=== PATIENT | male | born 1945 | race Caucasian/White ===

== ENCOUNTER → 2017-12-27 08:20 | Outpatient (CLI) | payer MEDICARE, OTHER, SELFPAY ==
[2018-01-05 08:56] LABS: PSA,Total- Diagnostic < 0.01 ng/mL (0.0-4.0)
== END ==
PROVIDERS: Family Provider Family Medicine; PCP Family Medicine
DX: C61 Malignant neoplasm of prostate (principal)
CPT/HCPCS: 36415; 84153; G0103

== ENCOUNTER 2018-01-21 12:13 | Day surgery (SDC) | payer MEDICARE, OTHER, SELFPAY ==
[2018-01-21 12:56] VITALS: BP 96/57; PULSE 66; RESP 15; TEMP 36.3; O2SAT 100; BMI 26.6
[2018-01-21] MEDS: Cefazolin 2 GM in 0.9% Normal Saline 100 ML IV (14:35)
[2018-01-21] MEDS: Bupiv/Epi 0.5% Mpf 30 ML Vial (14:53)
--- NOTE | 2018-01-21 14:53 | RAD_ITS ---
STUDY: X-RAY - LUMBAR SPINE REASON FOR EXAM: Male, 72 years old. Spinal cord simulator insertion. TECHNIQUE: 8 intraoperative view(s) of the lumbar spine were obtained. COMPARISON: None FINDINGS: The 8 provided images demonstrate dorsal column stimulator leads with their tips posterior to the body of the right is thought to be the T9 vertebra, although this cannot be stated with certainty.. There is no fracture. There are minimal degenerative changes of the lower thoracic spine. Please refer to the operative report for further details. RAD/Lumbar Spine 2 or 3 Views IMPRESSION: Placement of a dorsal column stimulator in the OR. Electronically Signed: Erwin Ron DO at 16:03 EDT Tel [phone], Service support ,
[2018-01-21 16:21] VITALS: BP 144/81; BP 96/57; PULSE 85; RESP 16; TEMP 36.3; O2SAT 93
[2018-01-21 16:30] VITALS: BP 130/80; BP 96/57; PULSE 73; RESP 16; O2SAT 94
[2018-01-21 16:34] VITALS: BP 96/57
[2018-01-21 16:45] VITALS: BP 120/76; BP 96/57; PULSE 70; RESP 16; TEMP 36.2; O2SAT 93
[2018-01-21 17:43] VITALS: BP 106/58; BP 96/57; PULSE 57; RESP 18; TEMP 35.9; O2SAT 93
== END 2018-01-21 17:55 | disposition home or self-care (01) ==
LOC: SDC 12:14 → AC 12:16
PROVIDERS: Family Provider Family Medicine; PCP Family Medicine; Visit Provider Anesthesiology Pain Medicine
PROC: (CPT 63685; principal; 2018-01-21 13:30)
DX: M54.16 Radiculopathy, lumbar region (principal); Z98.1 Arthrodesis status; F17.200 Nicotine dependence, unspecified, uncomplicated; Z79.2 Long term (current) use of antibiotics; Z85.46 Personal history of malignant neoplasm of prostate; Z79.891 Long term (current) use of opiate analgesic
CPT/HCPCS: 63655 ×2; 63685; 95972; 72100; 76000; J7120; J2405

== ENCOUNTER → 2018-02-24 16:35 | Outpatient (CLI) | payer MEDICARE, OTHER, SELFPAY ==
[2018-02-24 17:43] LABS: Amphetamine Urine VISTA NEGATIVE (<1000 ng/mL); Barbiturate Urine VISTA NEGATIVE (< 200 ng/mL); Benzodiazepine Urine VISTA NEGATIVE (< 200 ng/mL); Cocaine Urine VISTA NEGATIVE (< 300 ng/mL); Ecstacy Urine VISTA NEGATIVE (< 500 ng/mL); Methadone Urine VISTA NEGATIVE (< 300 ng/mL); PCP Urine VISTA NEGATIVE (< 25 ng/mL); THC Urine VISTA NEGATIVE (< 50 ng/mL); Vista UDS pH Range 6
== END ==
PROVIDERS: Family Provider Family Medicine; PCP Family Medicine; Visit Provider Anesthesiology Pain Medicine
DX: F11.20 Opioid dependence, uncomplicated (principal)
CPT/HCPCS: 80307

== ENCOUNTER → 2018-06-24 11:18 | Outpatient (CLI) | payer MEDICARE, OTHER, SELFPAY ==
[2018-06-24 12:41] LABS: PSA,Total- Diagnostic < 0.01 ng/mL (0.0-4.0)
== END ==
PROVIDERS: Family Provider Family Medicine; PCP Family Medicine
DX: C61 Malignant neoplasm of prostate (principal)
CPT/HCPCS: 36415; 84153

== ENCOUNTER → 2018-11-28 | Outpatient (CLI) | payer MEDICARE, OTHER, SELFPAY ==
[2018-11-28 11:07] LABS: PSA,Total- Diagnostic < 0.01 ng/mL (0.0-4.0)
== END | disposition home or self-care (01) ==
LOC: LAB 10:10
PROVIDERS: Family Provider Family Medicine; PCP Family Medicine
DX: C61 Malignant neoplasm of prostate (principal)
CPT/HCPCS: 36415; 84153

== ENCOUNTER → 2019-05-11 | Outpatient (CLI) | payer MEDICARE, OTHER, SELFPAY ==
[2019-05-11 15:59] LABS: PSA,Total- Diagnostic 0.01 ng/mL (0.0-4.0)
== END | disposition home or self-care (01) ==
LOC: LAB 14:59
PROVIDERS: Family Provider Family Medicine; PCP Family Medicine
DX: C61 Malignant neoplasm of prostate (principal)
CPT/HCPCS: 36415; 84153

== ENCOUNTER → 2019-08-18 15:50 | Outpatient (CLI) | payer MEDICARE, OTHER, SELFPAY ==
--- NOTE | 2019-08-18 | LES_PTH ---
PATIENT: KINJAL WINN LOC: [facility] U#:[id number] AGE/SX: 79/M ROOM: RE08/18/[address]: Dr. Hardy Eng DO : 1945 BED: DIS: SPEC #: [id number] RECD: 08/18/19 16:25 STATUS: MADYSON JACKY #: [id number] SERGIO: 08/18/19 00:[address]: Hardy Eng DEPT: SURGICAL PATHOLOGY RECD BY: Marlon Mccracken Tissues: A - Skin of back, NOS B - Skin of back, NOS Procedures: Surgery Specimen Level III Surgery Specimen Level IV HEADER OPERATION: Punch biopsies PRE-OP DIAGNOSIS: Abnormal growths, rule out melanoma TISSUE SUBMITTED: A - Left low back, B - Right low back MICROSCOPIC DIAGNOSIS A. Left low back lesion, punch biopsy: Suggestive of inflamed lentigo. Negative for malignancy. See comment. B. Right low back, punch biopsy: Epidermal inclusion cyst. SJ:tru 08/22/19 COMMENT A. Multiple levels are examined. Clinical correlation and appropriate follow up are necessary. Case has been reviewed in consultation with Dr. Meade who concurs with the above diagnosis. IDC:AM MICROSCOPIC DESCRIPTION Slides are reviewed. GROSS DESCRIPTION A - Received is one container labeled with the patient's name and not further designated. The specimen consists of a discoid fragment of dee skin measuring 0.2 x 0.2 x 0.1 cm. The specimen is totally submitted in one cassette. B - Received is one container labeled with the patient's name and not further designated. The specimen consists of a discoid fragment of light dee excised skin measuring 0.5 cm in diameter and 0.1 cm in length. The specimen is submitted in its entirety in one cassette. / AM:tru 08/21/19 TC:5 CPT: 53470, 78411
== END ==
PROVIDERS: PCP Family Medicine; Visit Provider Family Medicine
DX: D49.9 Neoplasm of unspecified behavior of unspecified site (principal)
CPT/HCPCS: 88304; 88305

== ENCOUNTER → 2019-11-09 14:50 | Outpatient (CLI) | payer MEDICARE, OTHER, SELFPAY ==
[2019-11-09 15:35] LABS: PSA,Total- Diagnostic 0.01 ng/mL (0.0-4.0)
== END ==
PROVIDERS: PCP Family Medicine
DX: C61 Malignant neoplasm of prostate (principal)
CPT/HCPCS: 36415; 84153

== ENCOUNTER → 2019-12-20 | Outpatient (CLI) | payer MEDICARE, OTHER, SELFPAY ==
--- NOTE | 2019-12-20 17:00 | RAD_ITS ---
STUDY: X-RAY - LUMBAR SPINE REASON FOR EXAM: Male, 73 years old. LOW BACK PAIN, HX OF MULTIPLE SURGERIES, STIMULATOR TECHNIQUE: 3 view(s) of the lumbar spine were obtained. COMPARISON: 2017 FINDINGS: Patient has undergone previous pedicle screw fusion surgery at L4, L5, and S1. Stable appearance of a neural stimulator catheter projecting over the lower thoracic spine. Hardware is intact and free of complication. Normal lumbar lordosis. There is no substantial scoliosis. There is a normal alignment of the vertebrae. There is multilevel endplate spondylosis of the lumbar vertebrae. There is multi-level degenerative disc disease with multi-level disc space narrowing. There is no demonstrated fracture. There is atherosclerotic calcification of the abdominal aorta without a demonstrated aneurysm. RAD/Lumbar Spine 2 or 3 Views IMPRESSION: Stable degenerative and postsurgical changes in the lumbar spine, no demonstrated fracture or suspicious osseous lesion Electronically Signed: Mono Pena MD at 7:53 EDT , Service support ,
== END | disposition home or self-care (01) ==
LOC: RAD 17:04
PROVIDERS: PCP Family Medicine; Visit Provider Orthopaedic Surgery
DX: M54.5 Low back pain (principal)
CPT/HCPCS: 72100

== ENCOUNTER → 2020-01-02 17:28 | Outpatient (CLI) | payer MEDICARE, OTHER, SELFPAY ==
--- NOTE | 2020-01-02 17:30 | CT_ITS ---
STUDY: CT LUMBAR SPINE WITHOUT CONTRAST REASON FOR EXAM: Male, 74 years old. LUMBAR STENOSIS RADIATION DOSAGE (If Supplied By Facility): CTDIvol = ( 31.39 ) mGy, DLP = ( 1029.84 ) mGycm TECHNIQUE: The patient was scanned in a multi detector CT scanner. High resolution transaxial imaging was performed. Sagittal and coronal images were reconstructed. Individualized dose optimization techniques were used for this CT. COMPARISON: Radiographs 12/20/2019 FINDINGS: There is straightening of the normal lumbar lordosis. There is no substantial scoliosis. Normal alignment of the lumbar vertebral bodies. There has been discectomy and there is bony fusion between L3-L4, L4-L5, and L5-S1. Particular screws are seen bilaterally at L4, L5, and S1 similar to the radiographs, and with no evidence for prosthesis complication. Anterior fusion seen at L4-L5 and L5-S1, stable. Epidural stimulator seen behind T12. Axial images show adequate spinal canal due to at T12-L1 and L1-L2. There is loss of disc height, broad-based disc bulge, and mild central canal stenosis at L2-L3. There has been posterior decompressive laminectomy L3-L4, with grossly adequate spinal canal depth. There is poorly visualized spinal canal at L4-L5 and mild central canal stenosis with neural foraminal narrowing, worse to the right, mages. Grossly adequate spinal canal depth L5-S1 with bilaterally adequate neural foramina. Normal sacroiliac joints. Grossly normal visualized soft tissues. CT/Spine Lumbar without Contrast IMPRESSION: No gross postsurgical complication. Disc bulge and mild central canal stenosis at L2-L3 and at L4-L5. Electronically Signed: Manuel Barrientos MD at 21:46 EDT , Service support ,
== END ==
PROVIDERS: PCP Family Medicine; Referring Provider Orthopaedic Surgery; Visit Provider Orthopaedic Surgery
DX: M48.062 Spinal stenosis, lumbar region with neurogenic claudication (principal)
CPT/HCPCS: 72131

== ENCOUNTER → 2020-01-31 09:07 | Outpatient (CLI) | payer MEDICARE, OTHER, SELFPAY ==
--- NOTE | 2020-01-31 09:11 | RAD_ITS ---
STUDY: X-RAY - LUMBAR SPINE REASON FOR EXAM: Male, 74 years old. Spinal stenosis. Status post fusion. TECHNIQUE: 2 view(s) of the lumbar spine were obtained. COMPARISON: 12/20/19 FINDINGS: Again noted is fusion hardware spanning L4-S1. There is new posterior fusion hardware spanning L2/L3. The hardware is intact and alignment is satisfactory. There is no acute fracture or dislocation. There are stable degenerative changes noted. There is a spinal stimulator electrode in place. RAD/Lumbar Spine 2 or 3 Views IMPRESSION: Satisfactory postoperative changes with intact hardware and satisfactory alignment. No acute fracture or dislocation. Stable degenerative changes. Electronically Signed: John Parada, at 17:05 EDT Tel , Service support ,
== END ==
PROVIDERS: PCP Family Medicine; Referring Provider Orthopaedic Surgery; Visit Provider Orthopaedic Surgery
DX: M48.062 Spinal stenosis, lumbar region with neurogenic claudication (principal)
CPT/HCPCS: 72100

== ENCOUNTER → 2020-03-13 12:17 | Outpatient (CLI) | payer MEDICARE, OTHER, SELFPAY ==
--- NOTE | 2020-03-13 12:25 | RAD_ITS ---
STUDY: X-RAY - LUMBAR SPINE REASON FOR EXAM: Male, 74 years old. Lower back pain. surgery 7 weeks ago TECHNIQUE: 5 view(s) of the lumbar spine were obtained. COMPARISON: 01/31/2020 FINDINGS: Normal lumbar lordosis. There is trace levoscoliosis similar to previous study. Stable surgical fusion of L2 and L3, L4-S1. Disc spacers are noted at these levels. Stable vertebral bodies with minimal spurring at the endplates. Normal disc space heights. The soft tissue structures are unremarkable. A spinal stimulator is noted. RAD/Lumbar Spine 2 or 3 Views IMPRESSION: Stable degenerative and post surgical changes of the lumbar spine. Electronically Signed: Abdiaziz Hall DO at 18:58 EDT Tel [phone], Service support ,
== END ==
PROVIDERS: PCP Family Medicine; Referring Provider Orthopaedic Surgery; Visit Provider Orthopaedic Surgery
DX: M48.062 Spinal stenosis, lumbar region with neurogenic claudication (principal)
CPT/HCPCS: 72100

== ENCOUNTER 2020-04-22 10:30 | Outpatient (RCR) | payer MEDICARE, OTHER, SELFPAY ==
--- NOTE | 2020-03-20 09:19 | HP.PTEVAL_ITS ---
Patient's Visit Information KINJAL WINN is a 74 year old M referred to Physical Therapy by Dr. Hardy Blanton MD with a diagnosis of s/p decompression fusion mid December. Date of Evaluation: 03/20/20 Physical Therapist: Miguel Angel Singleton, DPT, OCS, CSCS - Visit Plan Frequency: 3x /Week Duration: 2 Months Plan: 3x/week for 6-8 weeks(3 to start) in pool per script to focus on: 1. HS and quad stretching, Nerve root stretch L sciatic. 2. core strength, LE and postural strength. 3. LB ROM. Progress to I home program as pain level improves. Monitor home walking program - Subjective S/p L?s decompression fusion 8 weeks ago in mid December after collapsed vertebrae. Symptoms were pain in back and Left leg mostly in the knee and numbness to the toes. Was getting around with pain. Surgery helped and pain in LB stillg ets up to 5/10 intermittently moreso without brace or lying in the wrong position or overdoes walking. Comfortable sitting. Leg pain is much better to 4/10 at times. Numbness in foot is much better at about 70% better. Numbness is intermittent. Sleeping is OK on meds every 4 hours. Sleeps on sides. 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 Spends day walking now and then and lying down 2- 3x/day. Basic aDLsa re getting done. helps with socks/shoes. Had LB exercises of stretching legs and LB. Walking 1/3 mile 2-3x/day. Not worse af ter walking. Uses cane at times to get around but not all day. Doesn't trust balance. - Pain LBP Pain Intensity (Out of 10): 0 Pain Intensity Range: 0, 5 L leg Pain Intensity (Out of 10): 0 Pain Intensity Range: 0, 4 - Objective Walks slightly hunched over with a cane in R UE. Can walk without AD fairly well. Transfers out of and into chair I. steps reciprocal today without rail. Supine trasnfers I. LB AROM ext max limited to about 10 degrees and painful, very little lower L45 segmental movement. Very stiff. Flexion is max limited segmentally in lumbar region. SB mod limited B. Only pain with extension. HS max tight at -35 90/90. + L slump, - SLR B. quads max tight B. reflexes 2/3 patella and achilles B. Sensation WNL gross light touch B LE. Strength LE 4/5. Core strength 3+/5. Incisions healed well, multiple older incision present, moderate scar tissue on LB palpable. No soft tissue tenderness today in lumbar region, mild in gluts and pirifromis area B - Balance Scores Functional Gait Assessment Score: 28 % Disability: 6.6700 - Goals Goal 1:: Walk 30 minutes without increased pain consistently Goal Time Frame: 6-8 Weeks Goal 2:: Patient feel pain 80% improved to 1-2/10 at worst Goal Time Frame: 6-8 Weeks Goal 3:: Sleep without interruption at night Goal Time Frame: 4-6 Weeks Goal 4:: I approp HEP to minimize future problems. Goal Time Frame: 6-8 Weeks - Rehabilitation Potential Physical Therapy Diagnosis: chronic LBP s/p fusion Rehabilitation Potential: Fair - Anticipated Interventions Patient/Client Instruction: Educate patient on: Condition, Plan of Care For the Purpose of:: To decrease pain, To increase ROM, To improve muscle performance and motor function, To increase tolerance to activity/condition/position, To improve ability of physical actions for home/community/work/leisure Therapeutic Exercise to Include: Strength training, Flexibilty training, Gait and locomotor training, Neuromotor development, In an aquatic setting, Passive ROM, Active ROM, Dynamic Lumbar Stabilization For the Purpose of:: To decrease pain, To improve muscle performance and motor function, To increase tolerance to activity/condition/position, To improve ability of physical actions for home/community/work/leisure, To improve gait and locomotor functions Thank you for the opportunity to evaluate your patient. For Medicare and Medicare HMO plans, please review the plan of care and approve it. It will need to be FAXED BACK to us at [phone] for Medicare purposes. For Medicare only, by signing this I certify the plan of care. Please let me know if there are questions or concerns regarding this plan of care. Physician Signature: Date:
--- NOTE | 2020-04-22 10:53 | HP.PTDCSUM ---
It has been my pleasure to treat KINJAL WINN referred by Dr. Hardy Blanton MD, with the diagnosis of s/p decompression fusion mid December for a total of 10 visit(s). Discharge Date: 04/22/20 Please see the following information for a summary of their discharge status. Subjective: Getting better with less severe pain. More flexible. Pain over the weekend was 2/20 at worst. Sleeping well. Avoids lifting heavier items. To doctor in two weeks. Wants to take care of the rest iwth stretching at home.Weaned down to 2 pain meds per day LBP Pain Intensity (Out of 10): 2 L leg Pain Intensity (Out of 10): 0 % Improvement: 70 Objective/Function: AROM L/S WFL adn painfree. Walks normal with good balance. HS and quads still mod tight. Overall doing well and could benefit from land strength but pt wishes to continue current home strength and stretching until see doctor. Goal 1:: Walk 30 minutes without increased pain consistently Goal Progress: 10 minutes Goal 2:: Patient feel pain 80% improved to 1-2/10 at worst Goal Progress: Progressing Goal 3:: Sleep without interruption at night Goal Progress: Goal Met Goal 4:: I approp HEP to minimize future problems. Goal Progress: stretches. abs Plan: d/c If there are questions or concerns regarding this patient's physical therapy, please feel free to call me at [phone]. Thank you for the referral of this patient. Sincerely, Miguel Angel Singleton, DPT, OCS, CSCS
== END 2020-04-22 19:00 | disposition home or self-care (01) ==
LOC: PT 10:30
PROVIDERS: PCP Family Medicine; Referring Provider Orthopaedic Surgery; Visit Provider Orthopaedic Surgery
DX: Z47.89 Encounter for other orthopedic aftercare (principal)
CPT/HCPCS: 97113; 97162; 97164

== ENCOUNTER → 2020-05-06 09:20 | Outpatient (CLI) | payer MEDICARE, OTHER, SELFPAY ==
--- NOTE | 2020-05-06 09:24 | RAD_ITS ---
HISTORY: POST OP X 2 MONTHS ADDITIONAL HISTORY: None provided. EXAMINATION/TECHNIQUE: XR Spine Lumbar 2 or 3 Views Number of images including paperwork: 2 COMPARISON: 03/13/2020 FINDINGS: VERTEBRAE: No acute fracture. VERTEBRAL ALIGNMENT: No traumatic subluxation. DISKS AND JOINTS: Postoperative changes of spinal fusion of L2-3 and L4-S1 noted. Disc spacer is present at L3-for, as well. No evidence of hardware complication. SOFT TISSUES: Vascular calcification. Spinal stimulator device with right-sided generator partially visible. RAD/Lumbar Spine 2 or 3 Views IMPRESSION: Lumbar postoperative changes appear grossly similar. at 0202 Reported and signed by: Dalila Conteh MD Electronically Signed: Dalila Conteh MD at 2:02 EST Tel , Service support ,
== END ==
PROVIDERS: PCP Family Medicine; Referring Provider Orthopaedic Surgery; Visit Provider Orthopaedic Surgery
DX: M48.062 Spinal stenosis, lumbar region with neurogenic claudication (principal)
CPT/HCPCS: 72100

== ENCOUNTER → 2020-05-22 08:16 | Outpatient (CLI) | payer MEDICARE, OTHER, SELFPAY ==
[2020-05-22 09:36] LABS: PSA,Total - Annual Screen 0.01 ng/mL (0.00-4.00)
== END ==
PROVIDERS: PCP Family Medicine
DX: C61 Malignant neoplasm of prostate (principal); Z12.5 Encounter for screening for malignant neoplasm of prostate
CPT/HCPCS: 36415; 84153; G0103

== ENCOUNTER → 2020-06-03 09:18 | Outpatient (CLI) | payer MEDICARE, OTHER, SELFPAY ==
[2020-06-03 11:14] LABS: Amphetamine Urine VISTA NEGATIVE (<1000 ng/mL); Barbiturate Urine VISTA NEGATIVE (< 200 ng/mL); Benzodiazepine Urine VISTA NEGATIVE (< 200 ng/mL); Cocaine Urine VISTA NEGATIVE (< 300 ng/mL); Ecstacy Urine VISTA NEGATIVE (< 500 ng/mL); Methadone Urine VISTA NEGATIVE (< 300 ng/mL); PCP Urine VISTA NEGATIVE (< 25 ng/mL); THC Urine VISTA NEGATIVE (< 50 ng/mL); Vista UDS pH Range 5
== END ==
PROVIDERS: PCP Family Medicine; Referring Provider Anesthesiology Pain Medicine; Visit Provider Anesthesiology Pain Medicine
DX: F11.20 Opioid dependence, uncomplicated (principal)
CPT/HCPCS: 80307

== ENCOUNTER → 2020-07-29 09:13 | Outpatient (CLI) | payer MEDICARE, OTHER, SELFPAY ==
--- NOTE | 2020-07-29 09:18 | RAD_ITS ---
STUDY: X-RAY - LUMBAR SPINE REASON FOR EXAM: Male, 74 years old. Spinal stenosis -- multiple surgeries -- LBP TECHNIQUE: 2 view(s) of the lumbar spine were obtained. COMPARISON: Comparison is made with prior study dated 05/06/2020. FINDINGS: Normal lumbar lordosis. There is no substantial scoliosis. There is a normal alignment of the vertebrae. The patient is status post laminectomy and interpedicular screw fixation at the L2-L3 as well as at the L4-L5 and L5-S1 levels. Prosthetic discs are also seen. There is also evidence of anterior lift procedure. Electrodes from a pain stimulator device are also seen.. The soft tissue structures are unremarkable. RAD/Lumbar Spine 2 or 3 Views IMPRESSION: Stable examination. Electronically Signed: Jadon Pacheco MD at 10:58 EST , Service support ,
== END ==
PROVIDERS: PCP Family Medicine; Referring Provider Orthopaedic Surgery; Visit Provider Orthopaedic Surgery
DX: M48.062 Spinal stenosis, lumbar region with neurogenic claudication (principal)
CPT/HCPCS: 72100

== ENCOUNTER → 2020-11-18 08:16 | Outpatient (CLI) | payer MEDICARE, OTHER, SELFPAY ==
[2020-11-17 10:33] VITALS: BMI 26.6
[2020-11-18 09:43] LABS: PSA,Total- Diagnostic 0.02 ng/mL (0.0-4.0)
[2020-11-18 10:54] LABS: Amphetamine Urine VISTA NEGATIVE (<1000 ng/mL); Barbiturate Urine VISTA NEGATIVE (< 200 ng/mL); Benzodiazepine Urine VISTA NEGATIVE (< 200 ng/mL); Cocaine Urine VISTA NEGATIVE (< 300 ng/mL); Ecstacy Urine VISTA NEGATIVE (< 500 ng/mL); Methadone Urine VISTA NEGATIVE (< 300 ng/mL); PCP Urine VISTA NEGATIVE (< 25 ng/mL); THC Urine VISTA NEGATIVE (< 50 ng/mL); Vista UDS pH Range 5
== END ==
PROVIDERS: Anesthesiology Pain Medicine; PCP Family Medicine
DX: C61 Malignant neoplasm of prostate (principal); F11.20 Opioid dependence, uncomplicated
CPT/HCPCS: 36415; 80307; 84153

== ENCOUNTER → 2021-02-05 15:07 | Outpatient (CLI) | payer MEDICARE, OTHER, SELFPAY ==
[2020-11-17 10:33] VITALS: BMI 26.6
--- NOTE | 2021-02-05 15:20 | RAD_ITS ---
INDICATION: SPINAL STENOSIS EXAMINATION/TECHNIQUE: X-RAY - XR Spine Lumbar 2 or 3 Views COMPARISON: 07/29/2020. FINDINGS: Normal lumbar lordosis. There is no substantial scoliosis. There is a normal alignment of the vertebrae. Status post laminectomy and interpedicular screw fixation at the L2-L3, L4-L5 and L5-S1 levels. Prosthetic discs are seen. Electrodes from a pain stimulator device are also seen. The soft tissue structures are unremarkable. RAD/Lumbar Spine 2 or 3 Views IMPRESSION: Stable exam. Electronically Signed: Roque Oden MD at 17:51 EDT Tel , Service support ,
== END ==
PROVIDERS: PCP Family Medicine; Referring Provider Orthopaedic Surgery; Visit Provider Orthopaedic Surgery
DX: M48.061 Spinal stenosis, lumbar region without neurogenic claudication (principal)
CPT/HCPCS: 72100

== ENCOUNTER 2021-02-18 13:07 | Emergency (ER) | payer MEDICARE, OTHER, SELFPAY ==
[2021-02-18 13:08] VITALS: BP 120/76; PULSE 93; RESP 16; TEMP 37; O2SAT 94; BMI 27.2
--- NOTE | 2021-02-18 13:27 | RAD_ITS ---
STUDY: X-RAY CHEST REASON FOR EXAM: Male, 75 years old. Near syncope TECHNIQUE: Single AP portable view of the chest. COMPARISON: Comparison is made with prior examination 04/20/2017. FINDINGS: EKG electrodes are seen. There is hyperinflation of the lungs consistent with chronic obstructive lung disease (COPD). Stable mild increased linear markings at the left lung base suggestive of scarring. There is no demonstrated pleural abnormality. Normal size heart. Normal mediastinum and [place]. Normal visualized pulmonary arteries. There is atherosclerotic calcification of the aortic arch with tortuosity. There are diffuse degenerative changes of the visualized thoracic spine. Electrodes from a TENS unit are seen. The patient is status post bilateral shoulder replacement. There is no demonstrated abnormality of the visualized soft tissue structures of the upper abdomen. RAD/Chest 1 View (Portable) IMPRESSION: Hyperinflation. Stable examination. Electronically Signed: Jadon Pacheco MD at 14:18 EDT , Service support ,
--- NOTE | 2021-02-18 13:27 | EKG12_ITS ---
Test Reason : NEAR SYNCOPE Blood Pressure : / mmHG Vent. Rate : 086 BPM Atrial Rate : 086 BPM P-R Int : 186 ms QRS Dur : 080 ms QT Int : 362 ms P-R-T Axes : 074 -46 064 degrees QTc Int : 433 ms Normal sinus rhythm Left anterior fascicular block Inferior infarct , age undetermined Anteroseptal OR, age undetermined, cannot be excluded Abnormal ECG Confirmed by JOHN CARDOSO, DANIELLE ([id number]), slot editor LYNDA PARRA ([id number]) on 02/20/2021 9:58:30 AM Referred By: WILMER Confirmed By:DANIELLE LOPEZ MD
--- NOTE | 2021-02-18 13:28 | EX.ED.DYSGE1 ---
HPI History of Present Illness Chief Complaint: Hypotension Informant: patient, spouse/S.O. and EMS Narrative Narrative: 75-year-old male presents following a near syncopal episode. Patient states that he was working outside today when he started to have hot flashes and was quite diaphoretic. Started to feel like he might pass out. He was doing quite heavy lifting. Patient states that he went inside his house and his noted that he did not appear to be feeling good she states that his heart rate was in the 40s and seemed to be irregular and the blood pressure was reading low. EMS was called and prehospital EKG reviewed which demonstrates a sinus rhythm in the 90s. Patient states he has chronic back pain is currently prescribed [place] for which he has been trying to wean himself off for the past 5 days. [facility] Medical History Chronic low back pain History of prostate cancer Pleural effusion Rib pain on left side Home Medications hydrocodone-acetaminophen 1 tab PO DAILY 01/14/18 [History Last Taken Unknown] omega-3 fatty acids-fish oil [Fish Oil 1,000 mg Capsule] 1 ea PO DAILY 01/14/18 [History Last Taken Unknown] red yeast rice 600 mg tablet 600 mg PO DAILY 11/06/20 [History Last Taken Unknown] zinc 50 mg tablet 50 mg PO DAILY 11/06/20 [History Last Taken Unknown] albuterol sulfate 90 mcg/actuation aerosol inhaler 2 puff INHALATION Q6H PRN #6.7 g 11/17/20 [Rx Last Taken Unknown] azithromycin 250 mg tablet See Rx Instructions PO .COMPLEX #6 tab 11/17/20 [Rx Last Taken Unknown] Allergy/AdvReac Type Severity Reaction Status Date / Time No Known Allergies Allergy Verified 02/18/21 13:11 Family History Father Cancer Brother Cancer Sister Cancer Surgical History History of left knee replacement Hx of lumbosacral spine surgery Social History adopted: No household members: spouse housing: house number of children: 0 current occupational status: employed 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 occupational exposures/hazards: No Smoking Status: Current every day smoker tobacco type: cigarettes second hand exposure: Yes alcohol intake: never substance use type: does not use what type of physical activity do you participate in: bicycling frequency: 3-4 times per week duration: 15-30 minutes/day ROS ROS ED Constitutional Constitutional ED: Denies chills or weight loss Eyes Eyes: Denies change in vision or diplopia ENT ENT ED: Denies ear pain, rhinorrhea or sore throat Cardiovascular Cardiovascular: Reports palpitations and other Details: Near syncope ; Denies chest pain, orthopnea or racing heartbeat Respiratory/Chest Respiratory/Chest: Denies cough, dyspnea or orthopnea Gastrointestinal Gastrointestinal: Denies abdominal pain, diarrhea, nausea or vomiting Genitourinary Genitourinary ED: Denies dysuria, hematuria or urinary frequency Musculoskeletal Musculoskeletal: Denies arthralgias or myalgias Integumentary Denies abscess or rash Neurologic Neurologic: Denies headache(s) or weakness Psychiatric Psychiatric: Denies anxiety, depression, suicidal ideation or suicidal thoughts Endocrine Endocrinology: Denies polydipsia, polyphagia or polyuria Allergic/Immunologic Allergic/Immunologic ED: Denies mouth swelling, tongue swelling or urticaria EXAM Physical Exam Const Vital Signs: 02/18/21 13:08 02/18/21 13:12 02/18/21 15:13 Temperature 98.6 F Temperature Source Oral Pulse Rate 93 Pulse Rate [Sitting] 92 Pulse Rate [Standing] 96 Respiratory Rate 16 Respiratory Pattern Normal Blood Pressure 120/76 Blood Pressure [Sitting] 104/74 Blood Pressure [Standing] 100/70 Blood Pressure Mean 90 Blood Pressure Mean [Sitting] 84 Blood Pressure Mean [Standing] 80 Pulse Ox 94 Oxygen Delivery Method Room Air Positive well nourished and well developed General Appearance ED: well developed HEENT Reports normocephalic, head/scalp atraumatic and moist mucous membranes Eyes PERRL and EOMs intact bilaterally Neck no lymphadenopathy, supple and no JVD Resp normal respiratory effort and clear to auscultation bilaterally Cardio regular rate, regular rhythm and no murmurs GI normal to inspection, nondistended, normoactive bowel sounds and non-tender Palpation: soft Back/Spine no CVA tenderness and normal ROM Extremity normal to inspection General Extremety ED: Negative for edema General Extremity: Negative for edema Neuro oriented x3 and CN's II-XII intact bilaterally Sensorium / Orientation: alert Motor Exam: strength 5/5 throughout Psych mental status grossly normal Mood & Affect: Negative for depressed or tearful Skin no rashes or lesions noted and no wounds MDM MDM MDM Narrative Medical decision making narrative: Patient received a liter of IV fluids. Basic blood work was essentially negative. My interpretation of the chest x-ray is no acute process. Patient does not have any dysrhythmias noted on the monitor. He is not orthostatic. He will be discharged home. Lab Data Attestation: I reviewed the patient's lab results. Labs: Laboratory Results - last 24 hr 02/18/21 02/18/21 13:28 13:28 WBC 8.8 RBC 4.06 L Hgb 12.8 L Hct 38.4 L MCV 94.6 H MCH 31.5 MCHC 33.3 RDW Std Deviation 47.3 H RDW Coeff of [place] 13.6 Plt Count 343 MPV 8.5 Immature Gran % (Auto) 0.300 Neut % (Auto) 70.9 H Lymph % (Auto) 18.6 L [place] % (Auto) 9.1 Eos % (Auto) 0.8 Baso % (Auto) 0.3 Absolute Neuts (auto) 6.3 Absolute Lymphs (auto) 1.64 Nucleated RBC % 0 Sodium 140 Potassium 4.3 Chloride 108 H Carbon Dioxide 27.0 Anion Gap 5 BUN 23 H Creatinine 1.30 Estim Creat Clear Calc 51.49 Est GFR (MDRD) Af Amer 69 Est GFR (MDRD) Non-Af 57 L BUN/Creatinine Ratio 17.7 Glucose 104 Calcium 10.1 Magnesium 2.2 Troponin I High Sens 28 Radiography Diagnostic Testing: Radiology Impression Chest X-Ray 02/18/21 13:27 IMPRESSION: Hyperinflation. Stable examination. Electronically Signed: Jadon Pacheco MD at 14:18 EDT , Service support , EKG Initial EKG: Attestation: I personally reviewed and interpreted this EKG as follows: Comments: Normal sinus rhythm ventricular rate of 86 bpm. Left anterior fascicular block noted Discharge Plan Triage Chief Complaint: Hypotension ED Provider: Donald Meneses Dx/Rx/DC Orders Clinical Impression: Near syncope, Acute dehydration Instructions: ED Near-Fainting, Uncertain Cause Prescriptions: No Action red yeast rice 600 mg tablet 600 mg PO DAILY RF: 0 zinc 50 mg tablet 50 mg PO DAILY RF: 0 albuterol sulfate 90 mcg/actuation HFA aerosol inhaler 2 puff inhalation Q6H PRN (Reason: shortness of breath or wheezing) Qty: 6.7 RF: 0 azithromycin [Zithromax Z-Eliud] 250 mg tablet See Rx Instructions PO .COMPLEX Qty: 6 RF: 0 omega-3 fatty acids-fish oil [Fish Oil] 1 EACH capsule 1 ea PO DAILY RF: 0 hydrocodone-acetaminophen 1 TABLET tablet 1 tab PO DAILY RF: 0 Primary Care Provider: Hardy Eng Referrals: Hardy Eng DO [Primary Care Provider] - 1 Week Disposition Disposition: Home, Self Care
[2021-02-18 13:34] LABS: Absolute Lymphocyte Count 1.64 X10^3/uL (0.83-4.51); Absolute Neutrophil Count 6.3 X10^3/uL (2.0-7.7); Basophil# 0.03 X10^3/uL; Basophil% 0.3 % (0-1); Eosinophil# 0.07 X10^3/uL; Eosinophils% 0.8 % (0-5); Hematocrit 38.4 % (40-54); Hemoglobin 12.8 g/dL (13.0-16.5); Lymphocyte # 1.64 X10^3/ul (0.83-4.51); Lymphocyte % 18.6 % (19-41); Mean Corp Hgb Conc 33.3 g/dL (32-36); Mean Corpuscular Hgb 31.5 pg (27.0-32.0); Mean Corpuscular Volume 94.6 fL (80-94); Mean Platelet Vol. 8.5 fl (6.2-12.0); Monocyte% 9.1 % (0-10); NRBC Flagged by Analyzer 0 % (0-5); Neutrophil # 6.26 X10^3/uL (2.7-7.7); Neutrophil % 70.9 % (47-70); Platelet Count 343 K/mm3 (150-450); RBC Distribution Width CV 13.6 % (11.6-14.6); RBC Distribution Width SD 47.3 fl (35.1-43.9); Red Blood Count 4.06 M/mm3 (4.6-6.2); White Blood Count 8.8 K/mm3 (4.4-11.0)
[2021-02-18 13:54] LABS: Anion Gap 5 (5-15); BUN 23 mg/dL (7-18); BUN/Creat Ratio 17.7 RATIO (10-20); Calcium,Total 10.1 mg/dL (8.5-10.1); Chloride 108 mmol/L (98-107); EST Glomerular Filtration Rate 57 mL/min (>60); Est Glom Filt Rate - Afr Amer 69 mL/min (>60); Estimated Creatinine Clearance 51.49 ml/min; Glucose 104 mg/dL (74-106); Magnesium 2.2 mg/dL (1.6-2.6); Potassium 4.3 mmol/L (3.5-5.1); Sodium Level 140 mmol/L (136-145); Troponin-I HS 28 pg/mL (3.0-78.0)
[2021-02-18 15:13] VITALS: BP 100/70; BP 104/74; PULSE 92; PULSE 96
[2021-02-18 15:39] VITALS: BP 106/60; PULSE 71; RESP 16; O2SAT 98
--- NOTE | 2021-02-18 15:40 | ED.RN ---
THIS NURSE REVIEWED D/C INSTRUCTIONS WITH PT AND . BOTH VERBALIZED UNDERSTANDING OF INSTRUCTIONS. IV D/C. IV CATHETER INTACT. PT TOLERATED WELL. PT DENIES FURTHER NEEDS OR QUESTIONS AT THIS TIME. PT AMBULATES FROM ROOM ON OWN WITHOUT ASSISTANCE FROM STAFF
== END 2021-02-18 15:42 | disposition home or self-care (01) ==
PROVIDERS: Emergency Provider Emergency Medicine; PCP Family Medicine
DX: R55 Syncope and collapse (principal); E86.0 Dehydration; F17.210 Nicotine dependence, cigarettes, uncomplicated; Z85.46 Personal history of malignant neoplasm of prostate
CPT/HCPCS: 71045; 80048; 83735; 84484; 85025; 93005; 99285; A4216

== ENCOUNTER 2021-03-28 06:40 | Emergency (ER) | payer MEDICARE, OTHER, SELFPAY ==
[2021-03-28 06:44] VITALS: BP 132/81; PULSE 74; RESP 18; TEMP 36.3; O2SAT 92; BMI 27.3
--- NOTE | 2021-03-28 06:50 | RAD_ITS ---
STUDY: X-RAY CHEST REASON FOR EXAM: Male, 75 years old. Chest pain TECHNIQUE: Portable, upright, AP chest radiograph COMPARISON: 02/18/2021 FINDINGS: Bibasilar atelectasis. No focal consolidation. There is no demonstrated pleural abnormality. Normal size heart. Normal mediastinum and [place]. Normal visualized pulmonary arteries. Normal visualized aortic arch and descending thoracic aorta. There are diffuse degenerative changes of the visualized thoracic spine. Spinal stimulator leads noted. Bilateral shoulder arthroplasties. RAD/Chest 1 View (Portable) IMPRESSION: Bibasilar atelectasis. Electronically Signed: Kartik Stacy MD at 7:34 EDT Tel , Service support ,
--- NOTE | 2021-03-28 06:50 | EKG12_ITS ---
Test Reason : CHEST PAIN Blood Pressure : / mmHG Vent. Rate : 075 BPM Atrial Rate : 075 BPM P-R Int : 166 ms QRS Dur : 078 ms QT Int : 404 ms P-R-T Axes : 070 -54 069 degrees QTc Int : 451 ms Normal sinus rhythm Low voltage QRS Left anterior fascicular block Inferior infarct , age undetermined Abnormal ECG Confirmed by RICARDO CARDOSO, ALYSA ([id number]), scientific editor LYNDA PARRA ([id number]) on 03/31/2021 8:06:41 AM Referred By: JENNIFER Confirmed By:ALYSA SILVA MD
[2021-03-28 06:52] VITALS: O2SAT 93
[2021-03-28 06:56] LABS: Absolute Lymphocyte Count 1.18 X10^3/uL (0.83-4.51); Absolute Neutrophil Count 3.7 X10^3/uL (2.0-7.7); Basophil# 0.02 X10^3/uL; Basophil% 0.4 % (0-1); Eosinophil# 0.01 X10^3/uL; Eosinophils% 0.2 % (0-5); Hematocrit 38.2 % (40-54); Hemoglobin 12.9 g/dL (13.0-16.5); Lymphocyte # 1.18 X10^3/ul (0.83-4.51); Lymphocyte % 20.8 % (19-41); Mean Corp Hgb Conc 33.8 g/dL (32-36); Mean Corpuscular Hgb 31.5 pg (27.0-32.0); Mean Corpuscular Volume 93.2 fL (80-94); Mean Platelet Vol. 8.8 fl (6.2-12.0); Monocyte# 0.69 X10^3/uL; Monocyte% 12.2 % (0-10); NRBC Flagged by Analyzer 0 % (0-5); Neutrophil # 3.72 X10^3/uL (2.7-7.7); Neutrophil % 65.7 % (47-70); Platelet Count 275 K/mm3 (150-450); RBC Distribution Width CV 13.2 % (11.6-14.6); RBC Distribution Width SD 45.4 fl (35.1-43.9); White Blood Count 5.7 K/mm3 (4.4-11.0)
[2021-03-28 07:14] LABS: Anion Gap 7 (5-15); BUN 12 mg/dL (7-18); BUN/Creat Ratio 13.9 RATIO (10-20); Calcium,Total 8.9 mg/dL (8.5-10.1); Chloride 102 mmol/L (98-107); Creatinine, Serum 0.86 mg/dL (0.70-1.30); EST Glomerular Filtration Rate 92 mL/min (>60); Est Glom Filt Rate - Afr Amer 111 mL/min (>60); Estimated Creatinine Clearance 77.83 ml/min; Glucose 105 mg/dL (74-106); Potassium 4.1 mmol/L (3.5-5.1); Sodium Level 137 mmol/L (136-145); Troponin-I HS 8 pg/mL (3.0-78.0)
--- NOTE | 2021-03-28 07:19 | ED.VIS.CHEST ---
HPI History of Present Illness Chief Complaint: Chest Pain Narrative Narrative: 75-year-old male presenting with left-sided rib pain. He states it is sharp in nature. This started last night. He states that the sharp pain is worse with laying supine. Patient also states that he has had body aches, mild cough, fever 101 Fahrenheit on Wednesday. Patient states that he may have been exposed to COVID-19 at [employer] on Wednesday. One of the children that was sitting next to him tested positive. Patient has not had COVID-19 as of yet. He had his first Pfizer vaccine 3 weeks ago. Patient does admit to some diarrhea which has resolved. He denies nausea or vomiting. He states he is able to eat and drink. Denies urinary symptoms. [facility] Medical History Chronic low back pain History of prostate cancer Pleural effusion Rib pain on left side Home Medications hydrocodone-acetaminophen 1 tab PO DAILY 01/14/18 [History Last Taken Unknown] omega-3 fatty acids-fish oil [Fish Oil 1,000 mg Capsule] 1 ea PO DAILY 01/14/18 [History Last Taken Unknown] red yeast rice 600 mg tablet 600 mg PO DAILY 11/06/20 [History Last Taken Unknown] zinc 50 mg tablet 50 mg PO DAILY 11/06/20 [History Last Taken Unknown] albuterol sulfate 90 mcg/actuation aerosol inhaler 2 puff INHALATION Q6H PRN #6.7 g 11/17/20 [Rx Last Taken Unknown] oxycodone 03/28/21 [History Last Taken Unknown] tamsulosin 0.4 mg PO DAILY 03/28/21 [History Last Taken Unknown] Allergy/AdvReac Type Severity Reaction Status Date / Time No Known Allergies Allergy Verified 03/28/21 06:41 Family History Father Cancer Brother Cancer Sister Cancer Surgical History History of left knee replacement Hx of lumbosacral spine surgery S/P insertion of spinal cord stimulator Social History adopted: No household members: spouse housing: house number of children: 0 current occupational status: employed 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 occupational exposures/hazards: No Smoking Status: Current every day smoker tobacco type: cigarettes second hand exposure: Yes alcohol intake: never substance use type: does not use what type of physical activity do you participate in: bicycling frequency: 3-4 times per week duration: 15-30 minutes/day ROS ROS ED Constitutional Constitutional ED: Reports fever(s); Denies chills or sweats Eyes Eyes: Denies blurry vision or change in vision ENT ENT ED: Denies rhinorrhea or sore throat Cardiovascular Cardiovascular: Reports chest pain Respiratory/Chest Respiratory/Chest: Reports cough; Denies dyspnea or sputum Gastrointestinal Gastrointestinal: Reports diarrhea; Denies abdominal pain, nausea or vomiting Genitourinary Genitourinary ED: Denies dysuria or hematuria Musculoskeletal Musculoskeletal: Reports myalgias; Denies arthralgias or neck pain Integumentary Denies abscess or rash Neurologic Neurologic: Denies headache(s) EXAM Physical Exam Const Vital Signs: 03/28/21 06:44 03/28/21 06:49 03/28/21 06:52 Temperature 97.3 F L Temperature Source Temporal Pulse Rate 74 Respiratory Rate 18 Respiratory Effort Normal Respiratory Pattern Normal Blood Pressure 132/81 H Blood Pressure Mean 98 Pulse Ox 92 93 Oxygen Delivery Method Room Air Room Air Positive well nourished General Appearance ED: NAD; Negative for pallor HEENT Reports moist mucous membranes normocephalic and atraumatic Eyes PERRL and EOMs intact bilaterally Resp normal respiratory effort Auscultation: diminished lung sounds left Cardio regular rate and regular rhythm Neuro oriented x3 Sensorium / Orientation: awake and alert Psych mental status grossly normal Skin no rashes or lesions noted General Skin Exam: Negative for jaundice or pallor Heart Score History: Slightly/Non-Suspicious ECG: Normal Age: >/= 65 years Risk Factors: 1 or 2 Risk Factors Troponin: </= Normal Limit Score: 3 MDM MDM MDM Narrative Medical decision making narrative: 75-year-old male presenting for concern for Covid as well as some chest pain in the left ribs. Patient states that the Covid symptoms have been ongoing since Wednesday however the chest pain started last night. He describes it is intermittent. His EKG performed on arrival and interpreted by myself shows a normal sinus rhythm with a ventricular rate of 75 bpm without sign of ischemic change. Chest x-ray on my interpretation shows bibasilar atelectasis without other acute findings. Radiologist does agree. CBC shows a white blood cell count of 5.7, hemoglobin 12.9, hematocrit 38.2, platelets 275. Renal function and electrolytes are normal. Initial troponin is 8. 2-hour troponin is 9. No significant change. D-dimer age-adjusted is negative at 74. Patient tested positive for COVID-19 today. Patient not requiring any oxygen otherwise his vital signs are stable. Patient otherwise stable and will be referred for monoclonal antibodies. Patient discharged home in stable condition. He will monitor his home pulse ox. 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 Impression: 1. Chest pain noncardiac 2. COVID-19 pneumonitis Lab Data Labs: Laboratory Results - last 24 hr 03/28/21 03/28/21 03/28/21 06:47 06:47 07:35 WBC 5.7 RBC 4.10 L Hgb 12.9 L Hct 38.2 L MCV 93.2 MCH 31.5 MCHC 33.8 RDW Std Deviation 45.4 H RDW Coeff of [place] 13.2 Plt Count 275 MPV 8.8 Immature Gran % (Auto) 0.700 Neut % (Auto) 65.7 Lymph % (Auto) 20.8 [place] % (Auto) 12.2 H Eos % (Auto) 0.2 Baso % (Auto) 0.4 Absolute Neuts (auto) 3.7 Absolute Lymphs (auto) 1.18 Nucleated RBC % 0 D-Dimer Quant (PE/DVT) 0.75 H* Sodium 137 Potassium 4.1 Chloride 102 Carbon Dioxide 28.0 Anion Gap 7 BUN 12 Creatinine 0.86 Estim Creat Clear Calc 77.83 Est GFR (MDRD) Af Amer 111 Est GFR (MDRD) Non-Af 92 BUN/Creatinine Ratio 13.9 Glucose 105 Calcium 8.9 Troponin I High Sens 8 03/28/21 08:35 WBC RBC Hgb Hct MCV MCH MCHC RDW Std Deviation RDW Coeff of [place] Plt Count MPV Immature Gran % (Auto) Neut % (Auto) Lymph % (Auto) [place] % (Auto) Eos % (Auto) Baso % (Auto) Absolute Neuts (auto) Absolute Lymphs (auto) Nucleated RBC % D-Dimer Quant (PE/DVT) Sodium Potassium Chloride Carbon Dioxide Anion Gap BUN Creatinine Estim Creat Clear Calc Est GFR (MDRD) Af Amer Est GFR (MDRD) Non-Af BUN/Creatinine Ratio Glucose Calcium Troponin I High Sens 9 Radiography Diagnostic Testing: Radiology Impression Chest X-Ray 03/28/21 06:50 IMPRESSION: Bibasilar atelectasis. Electronically Signed: Kartik Stacy MD at 7:34 EDT Tel , Service support , Discharge Plan Triage Chief Complaint: Chest Pain ED Provider: Randy Lopez Dx/Rx/DC Orders Instructions: Coronavirus Disease 2019 (COVID-19): Caring for Yourself or Others, ED Chest Pain, Noncardiac Prescriptions: No Action red yeast rice 600 mg tablet 600 mg PO DAILY RF: 0 zinc 50 mg tablet 50 mg PO DAILY RF: 0 albuterol sulfate 90 mcg/actuation HFA aerosol inhaler 2 puff inhalation Q6H PRN (Reason: shortness of breath or wheezing) Qty: 6.7 RF: 0 Fish Oil 1 EACH capsule 1 ea PO DAILY RF: 0 hydrocodone-acetaminophen 1 TABLET tablet 1 tab PO DAILY RF: 0 tamsulosin 0.4 mg capsule 0.4 mg PO DAILY RF: 0 oxycodone 5 mg Tablet RF: 0 Other Ambulatory Orders: COVID Outpatient Monoclonal Antibody Referral (Routine) Timeframe: 1 Day Facility: [facility] - Location: [facility] Ordered By: Dr. Randy Lopez Primary Care Provider: Hardy Eng Referrals: Hardy Eng DO [Primary Care Provider] - Disposition Disposition: Home, Self Care
[2021-03-28 07:40] VITALS: O2SAT 93
[2021-03-28 08:12] LABS: D-Dimer Quantitative (DVT/PE) 0.75 FEU/ug/m (0.27-0.49)
[2021-03-28 09:05] LABS: Troponin-I HS 9 pg/mL (3.0-78.0)
[2021-03-28 09:39] VITALS: BP 112/84; PULSE 86; RESP 16; O2SAT 93
== END 2021-03-28 09:39 | disposition home or self-care (01) ==
PROVIDERS: Emergency Provider Student in an Organized Health Care Education/Training Program; PCP Family Medicine
DX: U07.1 COVID-19 (principal); J12.82 Pneumonia due to coronavirus disease 2019; R07.89 Other chest pain; F17.210 Nicotine dependence, cigarettes, uncomplicated; Z85.46 Personal history of malignant neoplasm of prostate; Z79.899 Other long term (current) drug therapy
CPT/HCPCS: 36415; 71045; 80048; 84484; 85025; 85379; 87426; 93005; 99284; A4216

== ENCOUNTER 2021-03-28 17:32 | Outpatient (CLI) | payer MEDICARE, OTHER, SELFPAY ==
[2021-03-28 17:57] VITALS: BP 93/74; PULSE 77; RESP 16; TEMP 36.8; O2SAT 97; BMI 27.1
[2021-03-28] MEDS: 0.9% Saline Lock 10 ML Syringe IV (18:04)
[2021-03-28 18:35] VITALS: BP 107/67; PULSE 76; RESP 16; TEMP 36.7; O2SAT 99
[2021-03-28 20:27] VITALS: BP 121/78; PULSE 68; RESP 16; TEMP 36.8; O2SAT 98
== END 2021-03-28 19:35 | disposition home or self-care (01) ==
LOC: MS3OUT 17:32 → MS3 17:33
PROVIDERS: PCP Family Medicine; Visit Provider Nurse Practitioner Adult Health
DX: Z23 Encounter for immunization (principal); U07.1 COVID-19; J12.82 Pneumonia due to coronavirus disease 2019; R07.89 Other chest pain; F17.210 Nicotine dependence, cigarettes, uncomplicated; Z79.899 Other long term (current) drug therapy; Z85.46 Personal history of malignant neoplasm of prostate
CPT/HCPCS: 36415; 71045; 80048; 84484; 85025; 85379; 87426; 93005; 99284; J7050; M0243; A4216; Q0244

== ENCOUNTER → 2021-10-01 08:20 | Outpatient (CLI) | payer MEDICARE, OTHER, SELFPAY ==
[2021-10-01 09:50] LABS: PSA,Total- Diagnostic 0.02 ng/mL (0.0-4.0)
== END ==
PROVIDERS: PCP Family Medicine
DX: C61 Malignant neoplasm of prostate (principal)
CPT/HCPCS: 36415; 84153

== ENCOUNTER → 2022-02-18 | Outpatient (CLI) | payer MEDICARE, OTHER, SELFPAY ==
[2022-02-18 13:05] LABS: Amphetamine Urine VISTA NEGATIVE (<1000 ng/mL); Barbiturate Urine VISTA NEGATIVE (< 200 ng/mL); Benzodiazepine Urine VISTA NEGATIVE (< 200 ng/mL); Cocaine Urine VISTA NEGATIVE (< 300 ng/mL); Ecstacy Urine VISTA NEGATIVE (< 500 ng/mL); Methadone Urine VISTA NEGATIVE (< 300 ng/mL); PCP Urine VISTA NEGATIVE (< 25 ng/mL); THC Urine VISTA NEGATIVE (< 50 ng/mL); Vista UDS pH Range 6
== END | disposition home or self-care (01) ==
LOC: LAB 11:31
PROVIDERS: PCP Family Medicine; Referring Provider Anesthesiology Pain Medicine; Visit Provider Anesthesiology Pain Medicine
DX: F11.20 Opioid dependence, uncomplicated (principal)
CPT/HCPCS: 80307

== ENCOUNTER → 2022-04-03 | Outpatient (CLI) | payer MEDICARE, OTHER, SELFPAY ==
[2022-04-03 11:27] LABS: PSA,Total- Diagnostic 0.04 ng/mL (0.0-4.0)
== END | disposition home or self-care (01) ==
PROVIDERS: PCP Family Medicine
DX: C61 Malignant neoplasm of prostate (principal)
CPT/HCPCS: 36415; 84153

== ENCOUNTER → 2022-04-23 | Outpatient (CLI) | payer MEDICARE, OTHER, SELFPAY ==
[2022-04-23 15:21] LABS: Absolute Lymphocyte Count 1.74 X10^3/uL (0.83-4.51); Absolute Neutrophil Count 5.4 X10^3/uL (2.0-7.7); Basophil# 0.02 X10^3/uL; Basophil% 0.3 % (0-1); Eosinophil# 0.09 X10^3/uL; Eosinophils% 1.1 % (0-5); Hematocrit 36.3 % (40-54); Hemoglobin 12.3 g/dL (13.0-16.5); Lymphocyte # 1.74 X10^3/ul (0.83-4.51); Lymphocyte % 22.2 % (19-41); Mean Corp Hgb Conc 33.9 g/dL (32-36); Mean Corpuscular Hgb 32.4 pg (27.0-32.0); Mean Corpuscular Volume 95.5 fL (80-94); Mean Platelet Vol. 9.3 fl (6.2-12.0); Monocyte# 0.57 X10^3/uL; Monocyte% 7.3 % (0-10); NRBC Flagged by Analyzer 0 % (0-5); Neutrophil # 5.41 X10^3/uL (2.7-7.7); Neutrophil % 68.8 % (47-70); Platelet Count 316 K/mm3 (150-450); RBC Distribution Width CV 13.6 % (11.6-14.6); RBC Distribution Width SD 48.2 fl (35.1-43.9); White Blood Count 7.9 K/mm3 (4.4-11.0)
[2022-04-23 15:38] LABS: ALB/GLOB Ratio 0.8 RATIO (0.9-2.4); AST(SGOT) 15 U/L (15-37); Alanine Aminotransfer ALT/SGPT 20 U/L (16-61); Albumin, Serum 3.2 g/dL (3.2-5.0); Alkaline Phosphatase 88 U/L (45-117); Anion Gap 4 (5-15); BUN 16 mg/dL (7-18); BUN/Creat Ratio 18.1 RATIO (10-20); Calcium,Total 9.2 mg/dL (8.5-10.1); Chloride 107 mmol/L (98-107); Creatinine, Serum 0.89 mg/dL (0.70-1.30); EST Glomerular Filtration Rate 89 mL/min (>60); Est Glom Filt Rate - Afr Amer 107 mL/min (>60); Globulin 3.8 g/dL (2.2-4.2); Glucose 125 mg/dL (74-106); Potassium 4.1 mmol/L (3.5-5.1); Sodium Level 140 mmol/L (136-145)
[2022-04-23 15:47] LABS: International Normalized Ratio 0.9; Prothrombin Time (Protime)PT. 12.3 SECONDS (11.7-14.9)
== END | disposition home or self-care (01) ==
LOC: BFHLAB 13:48
PROVIDERS: PCP Family Medicine; Visit Provider Family Medicine
DX: R42 Dizziness and giddiness (principal); R17 Unspecified jaundice
CPT/HCPCS: 36415; 80053; 85025; 85610

== ENCOUNTER → 2022-10-13 | Outpatient (CLI) | payer MEDICARE, OTHER, SELFPAY ==
[2022-10-13 10:20] LABS: PSA,Total- Diagnostic 0.06 ng/mL (0.0-4.0)
== END | disposition home or self-care (01) ==
PROVIDERS: PCP Family Medicine; Referring Provider Urology; Visit Provider Urology
DX: C61 Malignant neoplasm of prostate (principal)
CPT/HCPCS: 36415; 84153

== ENCOUNTER → 2022-11-02 | Outpatient (CLI) | payer MEDICARE, OTHER, SELFPAY ==
[2022-11-02 12:14] LABS: Amphetamine Urine VISTA NEGATIVE (<1000 ng/mL); Barbiturate Urine VISTA NEGATIVE (< 200 ng/mL); Benzodiazepine Urine VISTA NEGATIVE (< 200 ng/mL); Cocaine Urine VISTA NEGATIVE (< 300 ng/mL); Ecstacy Urine VISTA NEGATIVE (< 500 ng/mL); Methadone Urine VISTA NEGATIVE (< 300 ng/mL); PCP Urine VISTA NEGATIVE (< 25 ng/mL); THC Urine VISTA NEGATIVE (< 50 ng/mL); Vista UDS pH Range 6
== END | disposition home or self-care (01) ==
LOC: LAB 11:06
PROVIDERS: PCP Family Medicine; Referring Provider Anesthesiology Pain Medicine; Visit Provider Anesthesiology Pain Medicine
DX: F11.20 Opioid dependence, uncomplicated (principal)
CPT/HCPCS: 80307

== ENCOUNTER → 2023-10-18 | Outpatient (CLI) | payer MEDICARE, OTHER, SELFPAY ==
[2023-10-18 10:52] LABS: PSA,Total- Diagnostic 0.08 ng/mL (0.0-4.0)
== END | disposition home or self-care (01) ==
LOC: LAB 09:41
PROVIDERS: PCP Family Medicine; Referring Provider Nurse Practitioner; Visit Provider Nurse Practitioner
DX: C61 Malignant neoplasm of prostate (principal)
CPT/HCPCS: 36415; 84153

== ENCOUNTER → 2024-02-29 | Outpatient (CLI) | payer MEDICARE, OTHER, SELFPAY ==
--- NOTE | 2024-02-29 13:15 | RAD_ITS ---
STUDY: X-RAY - LUMBAR SPINE REASON FOR EXAM: Male, 78 years old. Postlaminectomy syndrome. TECHNIQUE: 3 view(s) of the lumbar spine were obtained. COMPARISON: February 05, 2021 FINDINGS: Osteopenia unchanged. Normal lumbar lordosis. Mild thoracolumbar scoliosis unchanged. Stable laminectomies with posterior fusion from L2 to S1 with intervertebral disc prostheses are unchanged in position and alignment. Diffuse lumbar intervertebral disc narrowing with osteophytes most marked at L5-S1, unchanged. Stable marked vascular calcification and stimulator. RAD/Lumbar Spine 2 or 3 Views IMPRESSION: Stable ORIF of the lumbosacral spine without complications. Electronically Signed: Wellington Salcido MD at 15:37 EDT ,
== END | disposition home or self-care (01) ==
LOC: RAD 13:06
PROVIDERS: PCP Family Medicine; Referring Provider Anesthesiology Pain Medicine; Visit Provider Anesthesiology Pain Medicine
DX: M96.1 Postlaminectomy syndrome, not elsewhere classified (principal)
CPT/HCPCS: 72100

== ENCOUNTER 2024-04-28 09:00 | Outpatient (RCR) | payer MEDICARE, OTHER, SELFPAY ==
--- NOTE | 2024-03-17 09:30 | HP.PTEVAL_ITS ---
Patient's Visit Information Visit Information Visit Information: KINJAL WINN is a 78 year old M referred to Physical Therapy by Dr. Fariha Capellan MD with a diagnosis of POST LAMINECTOMY SYNDROME. Date of Evaluation: 03/17/24 Physical Therapist: Kin Buck PT, Cert MDT, OCS Visit Plan Frequency: 2x /Week Duration: 4 Weeks Plan: PT INTERVENTIONS Subjective Subjective: This 78 y/o male presents to physical therapy with back pain. Patient many years . Patient has 4 back surgery which consisted of lumbar fusion. Patient last surgery 2016. Patient has been undercare of DR Garcia who has had pain management with last epidural injection last week . Patient has had multiple injections and had pain stimulator 5 years ago. Pain medication Nacro. Aggravating activity walking ,standing ,5 mins, bending and lifting. Alleviating factors rest. Dr recommended to see Dr Hannon and PT . C/O paresthesia/tingling in feet. Coughing/sneezing-.Pain affects sleeping. Bowel/bladder-.Patient pain affects QOL adn function. Patient goals to decrease pain. SOCIAL: VOCATION: retired Pain Bilateral: Pain Intensity (Out of 10): 5 Pain Intensity Range: 10 Objective Objective: POSTURE:mild forward posture NEURO: paresthesia/tingling feet/toes reflexes L3-4,L4-5,L5-S1 1/3 PALAPTION: tender LS/SI FLEXABILITY: hamstrings min tight LUMBAR ROM: flexion mod loss ,extension mod loss ,side glides min/mod loss MMT: quads/hams 4/5 ,hip flexion 4/5 ,ankle 4/5 Special Tests L/S Slump test left side: Negative L/S Slump test right side: Negative L/S Left Straight Leg Raise: Negative L/S Right Straight Leg Raise: Negative Balance/Special Test Scores Oswestry Low Back Score: 24 Goals Goal 1:: Patient to be I with HEP for back Goal Time Frame: 4-6 Weeks Goal 2:: Patient to demonstrate 50 % with improvement with less pain and function Goal Time Frame: 4-6 Weeks Goal 3:: Patient to improve lumbar ROM for function of recovery for to put on shoes Goal Time Frame: 4-6 Weeks Goal 4:: Patient to improve back oswestry score by 5 points to improve QOL Goal Time Frame: 4-6 Weeks Goal 5:: Patient be able to walk or stand > 10mins for ADL's Goal Time Frame: 4-6 Weeks Rehabilitation Potential Physical Therapy Diagnosis: This patient has multiple back surgery with chronic pain with pain worse with position and motion testing and walking/standing thus benefit from skilled PT Rehabilitation Potential: Fair Anticipated Interventions Patient/Client Instruction: Educate patient on: Condition and Plan of Care For the Purpose of:: To decrease pain, To increase ROM, To improve muscle performance and motor function, To improve ability to perform ADL's, To increase tolerance to activity/condition/position, To improve ability of physical actions for home/community/work/leisure, To improve gait and locomotor functions, To improve health of tissue, To decrease soft tissue restriction, To increase flexibility/ROM and To improve endurance Therapeutic Exercise to Include: Strength training, Body mechanics, Postural training, Flexibilty training, In an aquatic setting and Dynamic Lumbar Stabilization For the Purpose of:: To decrease pain, To increase ROM, To improve muscle performance and motor function, To improve ability to perform ADL's, To increase tolerance to activity/condition/position, To improve ability of physical actions for home/community/work/leisure, To improve health of tissue, To decrease soft tissue restriction, To increase flexibility/ROM and To improve endurance Text: Thank you for the opportunity to evaluate your patient. For Medicare and Medicare HMO plans, please review the plan of care and approve it. It will need to be FAXED BACK to us at [phone] for Medicare purposes. For Medicare only, by signing this I certify the plan of care. Please let me know if there are questions or concerns regarding this plan of care. Physician Signature:___ Date:
--- NOTE | 2024-03-27 10:38 | HP.PTEVAL ---
Patient's Visit Information Visit Information Visit Information: KINJAL WINN is a 78 year old M referred to Physical Therapy by Dr. Fariha Capellan MD with a diagnosis of POST LAMINECTOMY SYNDROME. Date of Evaluation: 03/17/24 Physical Therapist: Kin Buck PT, Cert MDT, OCS Visit Plan Frequency: 2x /Week Duration: 4 Weeks Plan: PT INTERVENTIONS 2X WEEK FOR 4 WEEKS AQUATIC THERAPY FOR DLS ,POSTURAL EX'S ,LE FLEXABILITY ,BLE STRENGTHENING AND ACTIVITY MODIFICATION Subjective Subjective: This 78 y/o male presents to physical therapy with back pain. Patient many years . Patient has 4 back surgery which consisted of lumbar fusion. Patient last surgery 2017. Patient has been undercare of DR Garcia who has had pain management with last epidural injection last week . Patient has had multiple injections and had pain stimulator 5 years ago. Pain medication Nacro. Aggravating activity walking ,standing ,5 mins, bending and lifting. Alleviating factors rest. Dr recommended to see Dr Hannon and PT . C/O paresthesia/tingling in feet. Coughing/sneezing-.Pain affects sleeping. Bowel/bladder-.Patient pain affects QOL adn function. Patient goals to decrease pain. SOCIAL: VOCATION: retired Pain Bilateral: Pain Intensity (Out of 10): 5 Pain Intensity Range: 10 Objective Objective: POSTURE:mild forward posture NEURO: paresthesia/tingling feet/toes reflexes L3-4,L4-5,L5-S1 1/3 PALAPTION: tender LS/SI FLEXABILITY: hamstrings min tight LUMBAR ROM: flexion mod loss ,extension mod loss ,side glides min/mod loss MMT: quads/hams 4/5 ,hip flexion 4/5 ,ankle 4/5 Special Tests L/S Slump test left side: Negative L/S Slump test right side: Negative L/S Left Straight Leg Raise: Negative L/S Right Straight Leg Raise: Negative Balance/Special Test Scores Oswestry Low Back Score: 24 Goals Goal 1:: Patient to be I with HEP for back Goal Time Frame: 4-6 Weeks Goal 2:: Patient to demonstrate 50 % with improvement with less pain and function Goal Time Frame: 4-6 Weeks Goal 3:: Patient to improve lumbar ROM for function of recovery for to put on shoes Goal Time Frame: 4-6 Weeks Goal 4:: Patient to improve back oswestry score by 5 points to improve QOL Goal Time Frame: 4-6 Weeks Goal 5:: Patient be able to walk or stand > 10mins for ADL's Goal Time Frame: 4-6 Weeks Rehabilitation Potential Physical Therapy Diagnosis: This patient has multiple back surgery with chronic pain with pain worse with position and motion testing and walking/standing thus benefit from skilled PT Rehabilitation Potential: Fair Anticipated Interventions Patient/Client Instruction: Educate patient on: Condition and Plan of Care For the Purpose of:: To decrease pain, To increase ROM, To improve muscle performance and motor function, To improve ability to perform ADL's, To increase tolerance to activity/condition/position, To improve ability of physical actions for home/community/work/leisure, To improve gait and locomotor functions, To improve health of tissue, To decrease soft tissue restriction, To increase flexibility/ROM and To improve endurance Therapeutic Exercise to Include: Strength training, Body mechanics, Postural training, Flexibilty training, In an aquatic setting and Dynamic Lumbar Stabilization For the Purpose of:: To decrease pain, To increase ROM, To improve muscle performance and motor function, To improve ability to perform ADL's, To increase tolerance to activity/condition/position, To improve ability of physical actions for home/community/work/leisure, To improve health of tissue, To decrease soft tissue restriction, To increase flexibility/ROM and To improve endurance Text: Thank you for the opportunity to evaluate your patient. For Medicare and Medicare HMO plans, please review the plan of care and approve it. It will need to be FAXED BACK to us at [phone] for Medicare purposes. For Medicare only, by signing this I certify the plan of care. Please let me know if there are questions or concerns regarding this plan of care. Physician Signature: Date:
--- NOTE | 2024-04-28 09:19 | HP.PTDCSUM_ITS ---
Discharge Summary D/C summary: It has been my pleasure to treat KINJAL WINN referred by Dr. Fariha Capellan MD, with the diagnosis of POST LAMINECTOMY SYNDROME for a total of 10 visit(s). Discharge Date: 04/28/24 Please see the following information for a summary of their discharge status. Subjective Subjective: Some little things has helped ..sleeping better Nacro 3x day Plan to leave to [place] next week Pain Bilateral: Pain Intensity (Out of 10): 5 LBP: Pain Intensity (Out of 10): 4 Overall Improvement % Improvement: 30 Objective Objective/Function: POSTURE:mild forward posture NEURO: paresthesia/tingling feet/toes reflexes L3-4,L4-5,L5-S1 1/3 PALAPTION: tender LS/SI FLEXABILITY: hamstrings min tight LUMBAR ROM: flexion mod loss ,extension mod loss ,side glides min/mod loss MMT: quads/hams 4/5 ,hip flexion 4/5 ,ankle 4/5 Goals Goal 1:: Patient to be I with HEP for back Goal Progress: Goal Met Goal 2:: Patient to demonstrate 50 % with improvement with less pain and function Goal Progress: Goal Met Goal 3:: Patient to improve lumbar ROM for function of recovery for to put on shoes Goal 4:: Patient to improve back oswestry score by 5 points to improve QOL Goal Progress: Goal Met Goal 5:: Patient be able to walk or stand > 10mins for ADL's Goal Progress: Goal Met Plan Plan: D/C D/C Information Discharge Comments: HEP d/c sentence: If there are questions or concerns regarding this patient's physical therapy, please feel free to call me at [phone]. Thank you for the referral of this patient. Sincerely, Kin Buck, PT, Cert MDT, OCS Balance/Gait/Functional tests Balance/Special Test Scores Oswestry Low Back Score: 22 Improvement % Improvement: 30
== END 2024-04-28 19:00 | disposition home or self-care (01) ==
LOC: PT 09:00
PROVIDERS: PCP Family Medicine; Referring Provider Anesthesiology Pain Medicine; Visit Provider Anesthesiology Pain Medicine
DX: M96.1 Postlaminectomy syndrome, not elsewhere classified (principal)
CPT/HCPCS: 97113; 97162; 97530

== ENCOUNTER → 2024-10-16 | Outpatient (CLI) | payer MEDICARE, OTHER, SELFPAY ==
[2024-10-16 11:33] LABS: PSA,Total- Diagnostic 0.06 ng/mL (0.00-4.00)
== END | disposition home or self-care (01) ==
LOC: LAB 08:13
PROVIDERS: PCP Family Medicine; Referring Provider Urology; Visit Provider Urology
DX: C61 Malignant neoplasm of prostate (principal)
CPT/HCPCS: 36415; 84153

== ENCOUNTER → 2024-10-23 | Outpatient (CLI) | payer MEDICARE, OTHER, SELFPAY ==
--- NOTE | 2024-10-23 09:27 | US_ITS ---
PROCEDURE: KIDNEY AND BLADDER ([facility]), 10/23/2024 REASON FOR EXAM: CYSTS OF KIDNEY TECHNIQUE: Grayscale and color/spectral doppler ultrasound of the kidneys and bladder was performed. COMPARISON: None FINDINGS: Right kidney: 13.6 cm in length. Cysts up to 4.5 x 3.5 x 3.9 cm. A 3.6 x 3.7 x 3.3 cm cyst or cyst cluster in the interpolar region demonstrates irregular margins favored related to internal septations. Evaluation limited due to multiplicity. No visualized calculus or hydronephrosis. Left kidney: 12.3 cm in length. Cysts up to 3.1 x 2.7 x 2.8 cm. There appears to be a septated cyst at the LEFT lower pole, roughly 1.8 cm. Evaluation limited due to multiplicity. No visualized calculus or hydronephrosis. Bladder: Underdistended and suboptimally evaluated; grossly unremarkable. Estimated volume 138 mL. Other: None. US/Kidney and Bladder IMPRESSION: 1. Bilateral renal cysts up to 4.5 cm on the RIGHT, and including a 3.7 cm comp tawana cyst or cyst cluster on the RIGHT and a septated cyst on the LEFT. Notably, sonographic evaluation is limited bilatera lly due to multiplicity. Consider multiphase renal protocol CT or MRI with and without contrast. Comparison with any availa ble outside imaging may also be helpful. 2. Additional description as above. Reading Location: [id number]
--- NOTE | 2024-10-23 09:55 | RAD_ITS ---
PROCEDURE: CHEST PA AND LATERAL 10/23/2024 REASON FOR EXAM: RECENT ASPIRATION PNEUMONIA, R RIB FX TECHNIQUE: Frontal and lateral views of the chest. COMPARISON: None FINDINGS: Bilateral prosthetic shoulders are noted. The visualized portions of the radiopaque hardware appears to be intact without evidence dense of fracture or loosening. A radiopaque neurotransmitter is projected over the lower mid thoracic spine posteriorly. Heart size and configuration are within normal limits. Pulmonary vasculature and hilar structures are unremarkable. Trachea is midline. Arteriosclerotic vascular disease of the aorta is noted. Linear densities are identified in the lung bases bilaterally which may represent either atelectasis or parenchymal scarring. There are a few nodules in the lungs all measuring less than 3 mm. These may represent granulomas and/or summation artifact. There is a subtle increased opacification in the right lower lobe which may represent a pneumonic infiltrate. Diffuse osteopenia of the bony thorax is seen. Degenerative changes of the lower thoracic spine are noted. Patient has a history of right rib fracture. RAD/Chest PA and Lateral IMPRESSION: Bilateral lower lobe densities most likely representing either atelectasis or p arenchymal scarring. Very subtle airspace disease process in the right lower lobe may represent a pn eumonic infiltrate in the right clinical setting. Arteriosclerotic vascular disease of the aorta is noted. Diffuse osteopenia of the bony thorax is seen. Patient has a history of right rib fracture. Nodules are seen in both lungs most likely representing granulomas and/or summa tion artifact. Reading Location: [id number]
[2024-10-23 11:37] LABS: Amphetamine Urine NEGATIVE (<1000 ng/mL); Barbiturate Urine NEGATIVE (< 200 ng/mL); Benzodiazepine Urine NEGATIVE (< 200 ng/mL); Buprenorphine Urine NEGATIVE (< 200 ng/mL); Cocaine Urine NEGATIVE (< 300 ng/mL); Fentanyl, Urine NEGATIVE; Methadone Urine NEGATIVE (< 300 ng/mL); Opiates Urine PRESUMPTIVE POSITIVE (< 300 ng/mL); Oxycodone, Urine NEGATIVE (< 100 ng/mL); PCP Urine NEGATIVE (< 25 ng/mL); THC Urine NEGATIVE (< 50 ng/mL)
== END | disposition home or self-care (01) ==
PROVIDERS: PCP Family Medicine; Referring Provider Family Medicine; Visit Provider Family Medicine
DX: S22.31XA Fracture of one rib, right side, initial encounter for closed fracture (principal); J69.0 Pneumonitis due to inhalation of food and vomit; F11.20 Opioid dependence, uncomplicated; N28.1 Cyst of kidney, acquired
CPT/HCPCS: 71046; 76770; 80307

== ENCOUNTER → 2024-12-18 | Outpatient (CLI) | payer MEDICARE, OTHER, SELFPAY ==
[2024-12-18 13:10] LABS: Amphetamine Urine NEGATIVE (<1000 ng/mL); Barbiturate Urine NEGATIVE (< 200 ng/mL); Benzodiazepine Urine NEGATIVE (< 200 ng/mL); Buprenorphine Urine NEGATIVE (< 200 ng/mL); Cocaine Urine NEGATIVE (< 300 ng/mL); Fentanyl, Urine NEGATIVE; Methadone Urine NEGATIVE (< 300 ng/mL); Opiates Urine PRESUMPTIVE POSITIVE (< 300 ng/mL); Oxycodone, Urine NEGATIVE (< 100 ng/mL); PCP Urine NEGATIVE (< 25 ng/mL); THC Urine NEGATIVE (< 50 ng/mL)
== END | disposition home or self-care (01) ==
LOC: LAB 09:53
PROVIDERS: PCP Family Medicine; Referring Provider Anesthesiology Pain Medicine; Visit Provider Anesthesiology Pain Medicine
DX: F11.20 Opioid dependence, uncomplicated (principal)
CPT/HCPCS: 80307

== ENCOUNTER 2025-01-06 13:59 | Emergency (ER) | payer MEDICARE, OTHER, SELFPAY ==
[2025-01-06 13:59] VITALS: BP 122/63; PULSE 60; RESP 16; TEMP 36.7; O2SAT 92
--- NOTE | 2025-01-06 14:12 | EX.ED.DYSGE1 ---
HPI <PACO Barrios - Last Filed: 01/06/25 16:34> History of Present Illness Chief Complaint: Fall Narrative Narrative: 79-year-old male tripped on a wet floor and did the splits with his legs stretched out to either side. He did not fall but his family states he was very close to the ground and they assisted him up. He has been able to ambulate since then but does not put weight on his left leg due to pain in his left hamstring area. He took a [place] which she is on for chronic back pain which has helped. He has no weakness or numbness or tingling. PFS <PACO Barrios - Last Filed: 01/06/25 16:34> [facility] Medical History Chronic low back pain History of prostate cancer Rib pain on left side Pleural effusion Home Medications ?Medication ?Instructions ?Recorded ?Last Taken ?Type omega-3 fatty acids-fish oil 340 1 ea PO DAILY 01/14/18 Unknown History mg-1,000 mg capsule (Fish Oil) red yeast rice 600 mg tablet 600 mg PO DAILY 11/06/20 Unknown History zinc 50 mg tablet 50 mg PO DAILY 11/06/20 12/29/24 History acetaminophen 650 mg 650 mg PO Q8H 04/07/24 01/06/25 History tablet,extended release (Tylenol Arthritis Pain) duloxetine 30 mg capsule,delayed 30 mg PO QDAY 04/07/24 01/06/25 History release hydrocodone 7.5 mg-acetaminophen 1 tab PO BID PRN pain 04/07/24 01/06/25 History 325 mg tablet Allergy/AdvReac Type Severity Reaction Status Date / Time No Known Allergies Allergy Verified 01/06/25 14:03 Family History Father Cancer Brother Cancer Sister Cancer Surgical History S/P insertion of spinal cord stimulator Hx of lumbosacral spine surgery History of left knee replacement Social History adopted: No household members: spouse housing: house number of children: 0 current occupational status: employed 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 Musc: Negative for joint pain, swelling. EXAM <PACO Barrios - Last Filed: 01/06/25 16:34> Physical Exam Narrative Exam Narrative: CONST: Patient sitting in no acute distress. EYES: Normal inspection. NECK: Normal inspection. RESP: No respiratory distress, CTAB. CVS: Regular rate and rhythm, no murmur, no gallop. Back: Normal inspection, no midline tenderness. SKIN: Color normal, no rash, warm, dry, intact. EXTREMITIES: Normal appearance of both lower extremities. Tenderness over the left mid hamstring without external signs of injury. No bony tenderness, full range of motion of all joints, 5/5 strength in bilateral hip flexion and dorsiflexion and plantarflexion. Normal sensation. 2+ DP pulses. NEURO: Alert and answering questions appropriately. PSYCH: Normal affect. Const Vital Signs: 01/06/25 13:59 01/06/25 14:08 Temperature 98.0 F Temperature Source Oral Pulse Rate 60 Respiratory Rate 16 Respiratory Effort Normal Respiratory Depth Normal Respiratory Pattern Normal Blood Pressure 122/63 H Blood Pressure Mean 82 Pulse Ox 92 Oxygen Delivery Method Room Air Room Air <Dr. Smith Archuleta DO - Last Filed: 01/06/25 16:11> Physical Exam Const Vital Signs: 01/06/25 13:59 01/06/25 14:08 Temperature 98.0 F Temperature Source Oral Pulse Rate 60 Respiratory Rate 16 Respiratory Effort Normal Respiratory Depth Normal Respiratory Pattern Normal Blood Pressure 122/63 H Blood Pressure Mean 82 Pulse Ox 92 Oxygen Delivery Method Room Air Room Air MDM <PACO Barrios - Last Filed: 01/06/25 16:34> MDM MDM Narrative Medical decision making narrative: History gathered from: Patient and spouse Differential: Muscle strain, less likely fracture, hematoma Patient slipped on a wet floor and did the splits and now has left hamstring pain. He did not fall or directly hit the leg. He is tender over the left mid hamstring without any external signs of trauma. He is moving both lower extremities through full range of motion and neurovascularly intact. Due to his age x-rays of the pelvis and left femur were obtained and are negative. He is ambulatory. He declined pain medication since he took [place] prior to arrival which she has for chronic back pain. He was provided an Case wrap and declined crutches. I discussed conservative treatment for muscle strain and he was discharged in stable condition. I have personally performed a face to face assessment of the patient and have reviewed the ROJAS Note. I performed a substantive portion of the visit including all aspects of the following. My joseph findings include: History is [patient presents to the emergency department with injury to his left leg. Patient states that he was at his birthday constitution party and slipped on some wet concrete causing him to do the splits but he did not fall all the way to the ground as he was helped by individuals they are back up. He did not strike his head. He is able to bear some weight. Complains mostly of pain to his left hamstring region. Patient has had prior left knee replacement. He is not anticoagulated] Exam is [JUAN ANTONIO, EOMI. Cranial nerves II through XII grossly intact. TMs clear. Mucous membranes moist. No adenopathy. Cardiovascular-regular rate and rhythm without murmur or ectopy Lungs-clear to auscultation, chest wall stable without crepitus or subcu emphysema Abdomen-normoactive bowel sounds, soft, nontender, no rebound or rigidity, no peritoneal signs. Extremities-intact ?4. Left leg-patient has tenderness palpation over the distal portion of the hamstring. Pain with straight leg raising. No real tenderness over the hip or groin. Neurovascular intact distally. Old surgical scar noted anteriorly left knee without any significant tenderness to the knee joint. Medical Decison Making [patient with a near fall complaining of left upper leg pain mostly over the hamstring. X-rays obtained of the pelvis and femur which showed no fractures. This point suspect likely muscle strain. Will apply Case wrap to the area and will offer crutches for comfort. Advised to use ibuprofen or Tylenol for discomfort. Advised to follow-up with primary care physician within the next 5 to 7 days. Patient has been ambulatory] Other additions or changes: [None] Radiography Diagnostic Testing: Clinical Impression(s) from Imaging Studies Femur X-Ray 01/06/25 14:40 IMPRESSION: Total left knee arthroplasty without hardware complications. No acute fracture or dislocations. Mild degenerative changes of the left hip. No large joint effusion. Mild diffuse soft tissue edema. No radiographic foreign body. Reading Location: [id number] Pelvis X-Ray 01/06/25 14:40 IMPRESSION: Slightly limited exam, without evidence of a displaced pelvic fracture. Consider CT if heightened clinical concern persists. Reading Location: [id number] <Dr. Smith Archuleta, DO - Last Filed: 01/06/25 16:11> [facility] MDM Narrative Medical decision making narrative: I have personally performed a face to face assessment of the patient and have reviewed the ROJAS Note. I performed a substantive portion of the visit including all aspects of the following. My joseph findings include: History is [patient presents to the emergency department with injury to his left leg. Patient states that he was at his birthday constitution party and slipped on some wet concrete causing him to do the splits but he did not fall all the way to the ground as he was helped by individuals they are back up. He did not strike his head. He is able to bear some weight. Complains mostly of pain to his left hamstring region. Patient has had prior left knee replacement. He is not anticoagulated] Exam is [HEENT-PERRLA, EOMI. Cranial nerves II through XII grossly intact. TMs clear. Mucous membranes moist. No adenopathy. Cardiovascular-regular rate and rhythm without murmur or ectopy Lungs-clear to auscultation, chest wall stable without crepitus or subcu emphysema Abdomen-normoactive bowel sounds, soft, nontender, no rebound or rigidity, no peritoneal signs. Extremities-intact ?4. Left leg-patient has tenderness palpation over the distal portion of the hamstring. Pain with straight leg raising. No real tenderness over the hip or groin. Neurovascular intact distally. Old surgical scar noted anteriorly left knee without any significant tenderness to the knee joint. Medical Decison Making [patient with a near fall complaining of left upper leg pain mostly over the hamstring. X-rays obtained of the pelvis and femur which showed no fractures. This point suspect likely muscle strain. Will apply Case wrap to the area and will offer crutches for comfort. Advised to use ibuprofen or Tylenol for discomfort. Advised to follow-up with primary care physician within the next 5 to 7 days. Patient has been ambulatory] Other additions or changes: [None] Radiography Diagnostic Testing: Clinical Impression(s) from Imaging Studies Femur X-Ray 01/06/25 14:40 IMPRESSION: Total left knee arthroplasty without hardware complications. No acute fracture or dislocations. Mild degenerative changes of the left hip. No large joint effusion. Mild diffuse soft tissue edema. No radiographic foreign body. Reading Location: [id number] Pelvis X-Ray 01/06/25 14:40 IMPRESSION: Slightly limited exam, without evidence of a displaced pelvic fracture. Consider CT if heightened clinical concern persists. Reading Location: [id number] 5 view x-rays of the femur obtained interpreted by myself as no evidence of fracture or dislocation. Radiology in agreement. 1 view pelvis x-ray obtained interpreted by myself as no evidence of fracture or dislocation. Radiology in agreement. Discharge Plan Triage Chief Complaint: Fall ED Midlevel Provider: Diana Hudson ED Provider: Smith Archuleta Dx/Rx/DC Orders Clinical Impression: Strain of left hamstring Instructions: ED Muscle Strain, Extremity Prescriptions: No Action red yeast rice 600 mg tablet 600 mg PO DAILY Rx Instructions: give with meal/snack zinc 50 mg tablet 50 mg PO DAILY hydrocodone-acetaminophen 7.5-325 mg tablet 1 tab PO BID PRN (Reason: pain) duloxetine 30 mg capsule,delayed release(DR/EC) 30 mg PO QDAY acetaminophen [Tylenol Arthritis Pain] 650 mg tablet extended release 650 mg PO Q8H Fish Oil 1 EACH capsule 1 ea PO DAILY Primary Care Provider: Hardy Eng Referrals: Hardy Eng DO [Primary Care Provider] - Activity Restrictions/Additional Instructions: I think this is a muscle strain. Ice and take pain medication as needed. If it is not improving follow-up with your primary care doctor. Print Language: Vietnamese Disposition Disposition: Home, Self Care
--- OUTSIDE RECORDS SUMMARY | 2025-01-06 14:24 | XMS RPT_ITS | CCD ---
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 Christopher Eng DO Primary Care Provider Dr. Sebas Sandoval MD Attending Provider Jaime CARDOSO, Dr. Sebas Harris Referring Provider Dr. Christopher Eng DO Attending Provider [phone] Dr. Christopher Eng DO Referring Provider Timi CARDOSO, Dr. Fried Attending Provider Dr. Fariha Wu MD Referring Provider [phone] Christopher Eng Attending Unavailable Christopher Eng Referring Unavailable Christopher Eng Primary Care Unavailable Fariha Wu Attending Unavailable Fariha Wu Referring Unavailable VelasquezChristopher breaux Primary Care Unavailable Manolo Hannon Attending Unavailable VelasquezChristopher breaux Primary Care Unavailable VelasquezChristopher breaux Referring Unavailable VelasquezChristopher breaux Primary Care Unavailable Anoop Aly Attending Unavailable Fariha Wu Attending Unavailable Fariha Wu Referring Unavailable Christopher Eng Primary Care Unavailable Fariha Wu Attending Unavailable BasaliFariha Referring Unavailable Velasquez, Christopher Primary Care Unavailable Christopher Eng Primary Care Unavailable Sebas Sandoval Attending Unavailable Sebas Sandoval Referring Unavailable Medications Current Medications Medication Drug Class(es) Dates Sig (Normalized) Sig (Original) 8 hr acetaminophen 650 mg extended release oral tablet (1 source) Start: 04-07-2024 take 1 tablet by mouth every eight hours Acetaminophen (Tylenol Arthritis Pain) 650 mg tablet extended release Active 650 mg PO Q8H April 07, 2024 12:00am acetaminophen 325 mg / HYDROcodone bitartrate 7.5 mg oral tablet (16 sources) Opioid Agonist Start: 04-07-2024 Hydrocodone-Acetami nophen 7.5-325 mg tablet Active 1 {tbl} PO TWICE A DAY as needed April 07, 2024 12:00am Start: 01-14-2018 End: 04-07-2024 take 2 tablets by mouth once daily at bedtime as needed for pain, then take 1 tablet by mouth every four hours as needed for pain Hydrocodone-Acetaminophen 1 TABLET table t Discontinued 1 {tbl} PO DAILY January 14, 2018 10:18am April 07, 2024 9:25am take 2 tabs at bedtime and 1 every 4 hours as needed during the day for pain Start: 01-14-2018 take 2 tablets by mo uth once daily at bedtime as needed for pain, then take 1 tablet by mouth every four hours as needed for pain Hydrocodone-Acetaminophen Active 1 TABLE T PO DAILY January 14, 2018 10:18am take 2 tabs at bedtime and 1 every 4 hours as needed during the day for pain Start: 03-23-2017 End: 01-14-2018 take 2 tablets by mouth every four hours at bedtime as needed for pain and pain, then take 1 tablet by mouth every four hours as needed for pain and pain Hydrocodone-Acetaminophen 1 TABLET table t Discontinued 1 {tbl} PO EVERY 4 HOURS NEEDED as needed for Severe Pain (6-1010) March 23, 2017 12:00am January 14, 2018 10:19am take 2 tabs at bedtime and 1 every 4 hours as needed during the day for pain Start: 03-23-2017 End: 01-14-2018 take 2 tablets by mouth every four hours at bedtime as needed for pain, then take 1 tablet by mouth every four hours as needed for pain Hydrocodone-Acetaminophen Discontinued 1 TABLET PO EVERY 4 HOURS NEEDED March 23, 2017 12:00am January 14, 2018 10:19am take 2 tabs at bedtime and 1 every 4 hours as needed during the day for pain Comment on above: Take 1 tablet by awilda th once daily. DULoxetine 30 mg delayed release oral capsule (1 source) Serotonin and Norepinephrine Reuptake Inhibitor Start: take 1 capsule by mouth once daily Duloxetine 30 mg capsule,delayed release(DR/EC) Active 30 mg PO daily April 07, 2024 12:00am [place]-3 Fatty Acids-Fish Oil (Fish Oil 1,000 Mg Capsule) 1 EACH capsule (7 sources) Start: [place]-3 Fatty Acids-Fish Oil (Fish Oil 1,000 Mg Capsule) 1 EACH capsule Active 1 NMA PO DAILY January 14, 2018 12:00am Start: 01-14-2018 [place]-3 Fatty Acids-Fish Oil (Fish Oil 1,000 Mg Capsule) 1 EACH capsule Active 1 EACH PO DAILY January 14, 2018 12:00am red yeast rice 600 mg oral tablet (7 sources) Start: 11-06-2020 take 1 tablet by mouth once daily Red Yeast Rice 600 mg tablet Active 600 mg PO DAILY November 06, 2020 12:00am give with meal/snack tamsulosin hydrochloride 0.4 mg oral capsule (9 sources) alpha-Adrenergi c Cody Start: 03-28-2021 take 1 capsule by mouth once daily Tamsulosin 0.4 mg capsule Active 0.4 mg PO DAILY March 28, 2021 12:00am Zinc (7 sources) Start: 11-06-2020 take 1 tablet by mouth once daily Zinc 50 mg tablet Active 50 mg PO DAILY November 06, 2020 12:00am Start: 11-06-2020 take 50 mg by mouth once daily Zinc Active 50 MG PO DAILY November 06, 2020 12:00am Completed/Discontinued Medications Medication Drug Class(es) Dates Sig (Normalized) Sig (Original) [id number] 200 actuat albuterol 0.09 mg/actuat metered dose inhaler (7 sources) beta2-Adrenergic Agonist Start: 11-17-2020 End: 04-07-2024 Albuterol Sulfate 90 mcg/actuation HFA aerosol inhaler Discontinued 2 NMA INHALATION EVERY 6 HOURS as needed for shortness of breath or wheezing 6.7 November 17, 2020 12:00am April 07, 2024 9:25am Start: 11-17-2020 take 1 puff(s) by in halation every six hours Albuterol Sulfate Active 2 PUFF INHALATION EVERY 6 HOURS 6.7 November 17, 2020 12:00am 12 hr guaiFENesin 600 mg extended release oral tablet (7 sources) Start: 11-17-2020 End: 11-24-2020 take 1 tablet by mouth every twelve hours as needed for cough, then take 1 tablet by mouth every twelve hours as needed for cough Guaifenesin (Mucinex) 600 mg tablet extended release 12hr Discontinued 600 mg PO Q12H as needed for congestion, cough 14 7 November 17, 2020 12:00am November 23, 2020 12:00am November 24, 2020 12:01am HYDROmorphone hydrochloride 2 mg oral tablet (7 sources) Opioid Agonist Start: 03-17-2017 End: 03-23-2017 take 1 tablet by mouth every four hours as needed for pain Hydromorphone 2 MG tablet Discontinued 2 mg PO EVERY 4 HOURS NEEDED as needed for Pain March 17, 2017 12:00am March 23, 2017 3:58pm oxyCODONE hydrochloride 5 mg oral tablet (7 sources) Opioid Agonist Start: 03-28-2021 End: 04-07-2024 Oxycodone 5 mg Tablet Discontinued March 28, 2021 12:00am April 07, 2024 9:26am Start: 03-28-2021 Oxycodone Acti ve March 28, 2021 12:00am predniSONE 10 mg oral tablet (7 sources) Start: 11-17-2020 End: 11-22-2020 take 3 tablets by mouth twice daily Prednisone 10 mg tablet Discontinued 30 mg PO TWICE A DAY 30 5 November 17, 2020 12:00am November 21, 2020 12:00am November 22, 2020 12:01am Start: 11-17-2020 End: 11-22-2020 take 30 mg by mouth twice daily Prednisone Discontinued 30 MG PO TWICE A DAY 30 5 November 17, 2020 12:00am November 22, 2020 12:01am Problems Active Problems Problem Classification Problem Date Documented Date Episodic/Chronic Cancer of prostate (5 sources) Malignant tumor of prostate; Translations: [Malignant neoplasm of prostate] Onset: 04-06-2022 Chronic Cancer of prostate (7 sources) History of malignant neoplasm of prostate; Translations: [Personal history of malignant neoplasm of prostate] 05-31-2017 Episodic Comment on above: Encouraged to call P CP to have night sweats evaluated. Further treatment and testing to PCP. Deficiency and other anemia (7 sources) Macrocytic anemia; Translations: [Nutritional anemia, unspecified] 03-23-2017 Episodic Fever of unknown origin (7 sources) Fever; Translations: [Fever, unspecified] 11-17-2020 Episodic Fluid and electrolyte disorders (7 sources) Dehydration; Translations: [Dehydration] 02-18-2021 Episodic Hyperplasia of prostate (4 sources) Benign prostatic hypertrophy with outflow obstruction; Translations: [Benign prostatic hyperplasia with lower urinary tract symptoms] Onset: 04-06-2022 Chronic Other circulatory disease (7 sources) Nasal discharge; Translations: [Other specified symptoms and signs involving the circulatory and respiratory systems] 11-17-2020 Episodic Other connective tissue disease (7 sources) Spasm; Translations: [Other muscle spasm] 03-23-2017 Episodic Other connective tissue disease (1 source) History of lumbar fusion; Translations: [Arthrodesis status] 04-07-2024 Episodic Other fractures (7 sources) Closed fracture of multiple ribs; Translations: [Multiple fractures of ribs, left side, initial encounter for closed fracture] 05-31-2017 Episodic Comment on above: Anticipate that the pain will continue to diminish as healing continues. No follow-up scheduled. We will remain available as needed. No additional testing at this time. Other fractures (1 source) Fracture of one rib, right side, initial encounter for closed fracture; Translations: [Fracture of one rib, right side, initial encounter for closed fracture] Onset: 10-26-2024 Episodic Other lower respiratory disease (7 sources) Cough; Translations: [Cough] 11-17-2020 Episodic Other lower respiratory disease (7 sources) Hypoxia; Translations: [Hypoxemia] 05-31-2017 Episodic Comment on above: Resolved. No additio nal testing at this time. We will remain available as needed. Other nervous system disorders (1 source) Cervical myelopathy; Translations: [Disease of spinal cord, unspecified] 04-07-2024 Chronic Other nervous system disorders (1 source) Other chronic pain; Translations: [Other chronic pain] Onset: 04-07-2024 Chronic Other upper respiratory disease (7 sources) Congestion of nasal sinus; Translations: [Nasal congestion] 11-17-2020 Episodic Pleurisy; pneumothorax; pulmonary collapse (14 sources) Atelectasis; Translations: [Atelectasis] 05-31-2017 Episodic Comment on above: as listed in problem #1, will remain available as needed for follow up. No continued sings o r symptoms of recurrent or persistent pleural effusions. No follow up scheduled, we will remain available as patient needs for follow up. No additional testing required. Residual codes; unclassified (7 sources) History of operative procedure on lumbar spinal structure; Translations: [Other specified postprocedural states] 12-18-2020 Episodic Comment on above: This is an addendum to Donald Bright. Donald would benefit from a good quality low back brace and that it would restrictive his movements which we already know relieves his low back pain specially when he is active. The cheaper brace that he used before until he wore it out was of help to him. A better quality brace would be even of more help to him. Again the purpose of the brace is to restrict his motion of his low back which will in turn help him with his pain. Residual codes; unclassified (7 sources) Tobacco user; Translations: [Tobacco use] 03-20-2017 Episodic Residual codes; unclassified (7 sources) Chill; Translations: [Chills (without fever)] 11-17-2020 Episodic Spondylosis; intervertebral disc disorders; other back problems (1 source) Postlaminectomy syndrome, not elsewhere classified; Translations: [Postlaminectomy syndrome, not elsewhere classified] Onset: 05-01-2024 Chronic Substance-related disorders (1 source) Opioid dependence, uncomplicated; Translations: [Opioid dependence, uncomplicated] Onset: 12-21-2024 Chronic Syncope (7 sources) Near syncope; Translations: [Syncope and collapse] 02-18-2021 Episodic Unclassified (2 sources) FU PSA Onset: 01-03-2018 Unclassified (7 sources) Age AND/OR growth finding; Translations: [65 years of age or older] 03-28-2021 Viral infection (7 sources) Disease caused by 2019-nCoV; Translations: [COVID-19] 03-28-2021 Episodic Past or Other Problems Problem Classification Problem Date Documented Da te Episodic/Chronic Spondylosis; intervertebral disc disorders; other back problems (9 sources) Chronic low back pain; Translations: [Chronic low back pain] Onset: 04-07-2024 11-06-2020 Episodic Results Test Name Value Interpretation Reference Range Facility L3410.9992on 12-22-2024 [facility] Misc. COMMENT Normal . [facility] Comment on above: Order Comment: 20309 0 MED TOX URINE RMT Result Comment: Test Ordered: [id number] Amphetamines Screen, Urine Negative ng/mL UI Reference Range: Arcxon=127 Amphetamine test includes Amphetamine and Methamphetamine. Barbiturates Negative ng/mL UI Reference Range: Hgspox=367 Benzodiazepines Negative ng/mL UI Reference Range: Wrnuie=105 Cocaine (Metab.), Urine Negative ng/mL UI Reference Range: Dzvhas=931 Opiates Note: ng/mL UI See Final Results Reference Range: Yujjlu=554 Opiate test includes Codeine, Morphine, Hydromorphone, Hydrocodone. Opiates Positive [A ] UI Reference Range: Kgpzbn=480 Opiate test includes Codeine, Morphine, Hydromorphone, Hydrocodone. Codeine Negative UI Reference Range: Dpfwhy=313 Morphine Negative UI Reference Range: Dsjprl=388 Hydromorphone Positive [A ] UI Reference Range: . Hydromorphone Conf, MS, UR 233 ng/mL UI Reference Range: Wckeuw=503 Hydrocodone Positive [A ] UI Reference Range: . Hydrocodone Conf, MS, UR 1364 ng/mL UI Reference Range: Tybvyh=791 6-Acetylmorphine, Urine Negative ng/mL UI Reference Range: Cutoff=10 Oxycodone/Oxymorphone, Urine Negative ng/mL UI Reference Range: Xkndvn=070 Test includes Oxycodone and Oxymorphone PCP, Urine Negative ng/mL UI Reference Range: Cutoff=25 Methadone Screen, Urine Negative ng/mL UI Reference Range: Kmuhbc=046 Propoxyphene, Urine Negative ng/mL UI Reference Range: Tcdoud=923 Fentanyl, Urine Negative ng/mL UI Reference Range: Cutoff=2.0 Test includes Fentanyl and Norfentanyl This test was developed and its performance characteristics determined [facility]. It has not been cleared or approved by the Food and Drug Administration. Tramadol Negative ng/mL UI Reference Range: Yvawtf=711 Buprenorphine, Urine Negative ng/mL UI Reference Range: Cutoff=10 Creatinine, Urine 161.9 mg/dL UI Reference Range: 20.0-300.0 pH, Urine 7.9 UI Reference Range: 4.5-8.9 Performed at: [facility] [address] [place], [place] [id number] Precipitation Equipment Tender: Óscar Mccann PhD, Phone: [phone] Performed at: [address] [id number] Precipitation Equipment Tender: Wes Boss PhD, Phone: [phone] Performed By: #### L 3410.9992, L505.5000 #### [facility] [address] [facility]. [place], [place], [id number] Amphetamine detection with 1 000 ng/mL as cutoffOrdered By: Fariha Wu on 12-18-2024 Amphetamines Screen method >1000 ng/mL Ql (U) Negative < 200 ng/mL [facility] No Panel InformationOrdered By: Fariha Wu on 12-18-2024 Urine Buprenorphine Qualitative Negative < 200 ng/mL [facility] Urine Oxycodone Screen Negative < 100 ng/mL [facility] Quantitative urine opiates m easurementOrdered By: Fariha Wu on 12-18-2024 Opiates Ql (U) Positive < 300 ng/mL [facility] Comment on above: If confirmation test ing is needed, a separate order will be required to send out testing to the reference laboratory. Screening urine fentanyl jeffrey surementOrdered By: Fariha Wu on 12-18-2024 fentaNYL Screen Ql (U) Negative [facility] Urine Drug Screen (VISTA)on 12-18-2024 AMPHETAMINES Negative Normal <1000 ng/mL [facility] Comment on above: Order Comment: RUN L OWEST TEST UNK Performed By: #### L 3410.9992, L505.5000 #### [facility] [address] [facility] [place], [address] BARBITIURATES Negative Normal < 200 ng/mL [facility] Comment on above: Order Comment: RUN L OWEST TEST UNK Performed By: #### L 3410.9992, L505.5000 #### [facility] [address] [place], [address] BENZODIAZIPINE Negative Normal < 200 ng/mL [facility] Comment on above: Order Comment: RUN L OWEST TEST UNK Performed By: #### L 3410.9992, L505.5000 #### [facility] [address] [place], [address] BUP Ur Drug Scr Negative Normal < 200 ng/mL [facility] Comment on above: Order Comment: RUN L OWEST TEST UNK Performed By: #### L 3410.9992, L505.5000 #### [facility] [address] [place], [address] COCAINE Negative Normal < 300 ng/mL [facility] Comment on above: Order Comment: RUN L OWEST TEST UNK Performed By: #### L 3410.9992, L505.5000 #### [facility] [address] [place], [address] Fentanyl Negative Normal [facility] Comment on above: Order Comment: RUN L OWEST TEST UNK Performed By: #### L 3410.9992, L505.5000 #### [facility] [address] [place], [address] METHADONE Negative Normal < 300 ng/mL [facility] Comment on above: Order Comment: RUN L OWEST TEST UNK Performed By: #### L 3410.9992, L505.5000 #### [facility] [address] [place], [address] OPIATES Positive Normal < 300 ng/mL [facility] Comment on above: Order Comment: RUN L OWEST TEST UNK Result Comment: If c onfirmation testing is needed, a separate order will be required to send out testing to the reference laboratory. Performed By: #### L 3410.9992, L505.5000 #### [facility] [address] [place], [address] OXYCODONE Negative Normal < 100 ng/mL [facility] Comment on above: Order Comment: RUN L OWEST TEST UNK Performed By: #### L 3410.9992, L505.5000 #### [facility] [address] [place], [address] PCP Negative Normal < 25 ng/mL [facility] Comment on above: Order Comment: RUN L OWEST TEST UNK Performed By: #### L 3410.9992, L505.5000 #### [facility] [address] [place], [address] THC Negative Normal < 50 ng/mL [facility] Comment on above: Order Comment: RUN L OWEST TEST UNK Performed By: #### L 3410.9992, L505.5000 #### [facility] [address] [place], [address] Urine benzodiazepine levelOr dered By: Fariha Basali on 12-18-2024 Benzodiazepines Ql (U) Negative < 200 ng/mL [facility] Urine cocaine levelOrdered B y: Ayman Basali on 12-18-2024 Cocaine Ql (U) Negative < 300 ng/mL [facility] Urine wcton-6-jhiskxnlhilnib abinol (THC) measurementOrdered By: Fariha Basali on 12-18-2024 Cannabinoids Screen Ql (U) Negative < 50 ng/mL [facility] Urine phencyclidine (PCP) de tectionOrdered By: Fariha Basali on 12-18-2024 Phencyclidine Ql (U) Negative < 25 ng/mL [facility] L3410.9992on 10-26-2024 [facility] Misc. COMMENT Normal . [facility] Comment on above: Order Comment: [id number] 0 URINE DRUG SCREEN Result Comment: Test Ordered: [id number]+SV2 Amphetamines Screen, Urine Negative ng/mL UI Reference Range: Ioajpd=201 Amphetamine test includes Amphetamine and Methamphetamine. Barbiturates Negative ng/mL UI Reference Range: Melcre=691 Benzodiazepines Negative ng/mL UI Reference Range: Aksdkn=657 Cocaine (Metab.), Urine Negative ng/mL UI Reference Range: Dsiyme=886 Opiates Note: ng/mL UI See Final Results Reference Range: Lbexir=244 Opiate test includes Codeine, Morphine, Hydromorphone, Hydrocodone. Opiates Positive [A ] UI Reference Range: Kpevhh=444 Opiate test includes Codeine, Morphine, Hydromorphone, Hydrocodone. Codeine Negative UI Reference Range: Cjxwxc=262 Morphine Negative UI Reference Range: Knlyii=330 Hydromorphone Positive [A ] UI Reference Range: . Hydromorphone Conf, MS, UR 235 ng/mL UI Reference Range: Czwzpc=171 Hydrocodone Positive [A ] UI Reference Range: . Hydrocodone Conf, MS, UR 1004 ng/mL UI Reference Range: Qhdxwv=737 6-Acetylmorphine, Urine Negative ng/mL UI Reference Range: Cutoff=10 Oxycodone/Oxymorphone, Urine Negative ng/mL UI Reference Range: Vtnyrk=895 Test includes Oxycodone and Oxymorphone PCP, Urine Negative ng/mL UI Reference Range: Cutoff=25 Methadone Screen, Urine Negative ng/mL UI Reference Range: Elisuh=914 Propoxyphene, Urine Negative ng/mL UI Reference Range: Gkaxpq=198 Fentanyl, Urine Negative ng/mL UI Reference Range: Cutoff=2.0 Test includes Fentanyl and Norfentanyl This test was developed and its performance characteristics [facility]. It has not been cleared or approved by the Food and Drug Administration. Tramadol Negative ng/mL UI Reference Range: Ykqfhh=103 Buprenorphine, Urine Negative ng/mL UI Reference Range: Cutoff=10 Creatinine, Urine 83.6 mg/dL UI Reference Range: 20.0-300.0 pH, Urine 6.6 UI Reference Range: 4.5-8.9 Performed at: [facility] [address] [place], [place] [id number] Precipitation Equipment Tender: Óscar Mccann PhD, Phone: [phone] Performed at: [facility] - [facility] [address] [id number] Precipitation Equipment Tender: Wes Boss PhD, Phone: [phone] Performed By: #### L 3410.9992, L505.5000 #### [facility] [address] [facility] [place], [place], [address] Amphetamine detection with 1 000 ng/mL as cutoffOrdered By: Christopher Eng on 10-23-2024 Amphetamines Screen method >1000 ng/mL Ql (U) Negative < 200 ng/mL [facility] Chest PA and Lateralon 10-23 Chest PA and Lateral [facility] [address] [place] [address] Chest PA and Lateral MR#: [id number] Acct: [id number] Name: DONALD WINN Rep #: [id number] : 1945 M [id number] From: Radha Mccollum PCP: Dr. Christopher Eng, Status: REG CLI Study: Chest PA and Lateral Date of Exam: 10/23/24 Exam# [id number] Ordering Dr: Christopher Eng DO PROCEDURE: CHEST PA AND LATERAL 10/23/2024 REASON FOR EXAM: RECENT ASPIRATION PNEUMONIA, R RIB FX TECHNIQUE: Frontal and lateral views of the chest. COMPARISON: None FINDINGS: Bilateral prosthetic shoulders are noted. The visualized portions of the radiopaque hardware appears to be intact without evidence dense of fracture or loosening. A radiopaque neurotransmitter is projected over the lower mid thoracic spine posteriorly. Heart size and configuration are within normal limits. Pulmonary vasculature and hilar structures are unremarkable. Trachea is midline. Arteriosclerotic vascular disease of the aorta is noted. Linear densities are identified in the lung bases bilaterally which may represent either atelectasis or parenchymal scarring. There are a few nodules in the lungs all measuring less than 3 mm. These may represent granulomas and/or summation artifact. There is a subtle increased opacification in the right lower lobe which may represent a pneumonic infiltrate. Diffuse osteopenia of the bony thorax is seen. Degenerative changes of the lower thoracic spine are noted. Patient has a history of right rib fracture. RAD/Chest PA and Lateral IMPRESSION: Bilateral lower lobe densities most likely representing either atelectasis or parenchymal scarring. Very subtle airspace disease process in the right lower lobe may represent a pneumonic infiltrate in the right clinical setting. Arteriosclerotic vascular disease of the aorta is noted. Diffuse osteopenia of the bony thorax is seen. Patient has a history of right rib fracture. Nodules are seen in both lungs most likely representing granulomas and/or summation artifact. Reading Location: [id number] CC: Dr. Christopher Eng DO Drag Out Worker: Signed Normal [facility] Bladder[facility] 025 Kidney and Bladder [facility] [address] [place] [id number] Kidney and Bladder MR#: [id number] Acct: [id number] Name: DONALD WINN Rep #: [id number] : 1945 M [id number] From: Christopher Moncada MD PCP: Dr. Christopher Eng DO Status: DEP CLI Study: Kidney and Bladder Date of Exam: 10/23/24 Exam# [id number] Ordering Dr: Christopher Eng DO ADDENDUM by Dr. Christopher Moncada MD on 10/30/24 at 1913 As a technical note, note that spectral Doppler imaging was not performed. END OF ADDENDUM Reading Location: [facility] 10/30/241912 Date cc: Dr. Christopher Eng DO * Signed PROCEDURE: KIDNEY AND BLADDER (USKI), 10/23/2024 REASON FOR EXAM: CYSTS OF KIDNEY TECHNIQUE: Grayscale and color/spectral doppler ultrasound of the kidneys and bladder was performed. COMPARISON: None FINDINGS: Right kidney: 13.6 cm in length. Cysts up to 4.5 x 3.5 x 3.9 cm. A 3.6 x 3.7 x 3.3 cm cyst or cyst cluster in the interpolar region demonstrates irregular margins favored related to internal septations. Evaluation limited due to multiplicity. No visualized calculus or hydronephrosis. Left kidney: 12.3 cm in length. Cysts up to 3.1 x 2.7 x 2.8 cm. There appears to be a septated cyst at the LEFT lower pole, roughly 1.8 cm. Evaluation limited due to multiplicity. No visualized calculus or hydronephrosis. Bladder: Underdistended and suboptimally evaluated; grossly unremarkable. Estimated volume 138 mL. Other: None. US/Kidney and Bladder IMPRESSION: 1. Bilateral renal cysts up to 4.5 cm on the RIGHT, and including a 3.7 cm complex cyst or cyst cluster on the RIGHT and a septated cyst on the LEFT. Notably, sonographic evaluation is limited bilaterally due to multiplicity. Consider multiphase renal protocol CT or MRI with and without contrast. Comparison with any available outside imaging may also be helpful. 2. Additional description as above. Reading Location: [facility] CC: Dr. Christopher Eng, Drag Out Worker: Signed [facility] No Panel InformationOrdered By: Christopher Eng on 10-23-2024 Urine Buprenorphine Qualitative Negative < 200 ng/mL [facility] Urine Oxycodone Screen Negative < 100 ng/mL [facility] Quantitative urine opiates m easurementOrdered By: Christopher Eng on 10-23-2024 Opiates Ql (U) Positive < 300 ng/mL [facility] Comment on above: If confirmation test ing is needed, a separate order will be required to send out testing to the reference laboratory. Screening urine fentanyl jeffrey surementOrdered By: Christopher Eng on 10-23-2024 fentaNYL Screen Ql (U) Negative [facility] Urine Drug Screen (VISTA)on 10-23-2024 AMPHETAMINES Negative Normal <1000 ng/mL [facility] Comment on above: Order Comment: UNK Performed By: #### L 1720.9992, L505.5000 #### [facility] [address] [place], [place], [address] BARBITIURATES Negative Normal < 200 ng/mL [facility] Comment on above: Order Comment: UNK Performed By: #### L 3410.9992, L505.5000 #### [facility] [address] [place], [address] BENZODIAZIPINE Negative Normal < 200 ng/mL [facility] Comment on above: Order Comment: UNK Performed By: #### L 3410.9992, L505.5000 #### [facility] [address] [place], [address] BUP Ur Drug Scr Negative Normal < 200 ng/mL [facility] Comment on above: Order Comment: UNK Performed By: #### L 3410.9992, L505.5000 #### [facility] [address] [place], [address] COCAINE Negative Normal < 300 ng/mL [facility] Comment on above: Order Comment: UNK Performed By: #### L 3410.9992, L505.5000 #### [facility] [address] [place], [address] Fentanyl Negative [facility] Comment on above: Order Comment: UNK Performed By: #### L 3410.9992, L505.5000 #### [facility] [address] [place], [address] METHADONE Negative Normal < 300 ng/mL [facility] Comment on above: Order Comment: UNK Performed By: #### L 3410.9992, L505.5000 #### [facility] [address] [place], [address] OPIATES Positive Normal < 300 ng/mL [facility] Comment on above: Order Comment: UNK Result Comment: If c onfirmation testing is needed, a separate order will be required to send out testing to the reference laboratory. Performed By: #### L 3410.9992, L505.5000 #### [facility] [address] [place], [address] OXYCODONE Negative Normal < 100 ng/mL [facility] Comment on above: Order Comment: UNK Performed By: #### L 3410.9992, L505.5000 #### [facility] [address] [place], [address] PCP Negative Normal < 25 ng/mL [facility] Comment on above: Order Comment: UNK Performed By: #### L 3410.9992, L505.5000 #### [facility] [address] [place], [address] THC Negative Normal < 50 ng/mL [facility] Comment on above: Order Comment: UNK Performed By: #### L 3410.9992, L505.5000 #### [facility] [address] [place], [address] Urine benzodiazepine levelOr dered By: Christopher Eng on 10-23-2024 Benzodiazepines Ql (U) Negative < 200 ng/mL [facility] Urine cocaine levelOrdered B y: Christopher Eng on 10-23-2024 Cocaine Ql (U) Negative < 300 ng/mL [facility] Urine xgcuv-3-rsjeruzevksupk abinol (THC) measurementOrdered By: Christopher Eng on 10-23-2024 Cannabinoids Screen Ql (U) Negative < 50 ng/mL [facility] Urine phencyclidine (PCP) de tectionOrdered By: Christopher Eng on 10-23-2024 Phencyclidine Ql (U) Negative < 25 ng/mL [facility] PSA,Total- Diagnosticon 09-27 PSA, DIAGNOSTIC 0.06 ng/mL Normal 0.00-4.00 [facility] Comment on above: Result Comment: This test was performed using the [employer] tPSA method. Measured values of a patient??sample can vary depending on the testing procedure used. PSA values determined on patient samples by different testing procedures cannot be used interchangeably. If there is a change in PSA assays while monitoring therapy, sequential testing should be performed to confirm baseline values. Performed By: #### L 501.9940 #### [facility] [address] [place], [address] PT D/C Summary (1)on 024 PT D/C Summary (1) [facility] [address] [place] [address] / REHABILITATION SERVICES DISCHARGE SUMMARY MR#: [id number] Acct: [id number] Name: DONALD WINN Rep #: [id number] : 1945 78 From: Kin Buck PT, Cert. T, OCS Referring Dr.: Dr. Fariha Wu MD Status: REG RCR Insurance: MEDICARE PART A B [facility] Discharge Summary D/C summary: It has been my pleasure to treat DONALD WINN referred by Dr. Fariha Wu MD, with the diagnosis of POST LAMINECTOMY SYNDROME for a total of 10 visit(s). Discharge Date: 04/28/24 Please see the following information for a summary of their discharge status. Subjective Subjective: Some little things has helped ..sleeping better Nacro 3x day Plan to leave to [place] next week Pain Bilateral: Pain Intensity (Out of 10): 5 LBP: Pain Intensity (Out of 10): 4 Overall Improvement % Improvement: 30 Objective Objective/Function: POSTURE:mild forward posture NEURO: paresthesia/tingling feet/toes reflexes L3-4,L4-5,L5-S1 1/3 PALAPTION: tender LS/SI FLEXABILITY: hamstrings min tight LUMBAR ROM: flexion mod loss ,extension mod loss ,side glides min/mod loss MMT: quads/hams 4/5 ,hip flexion 4/5 ,ankle 4/5 Goals Goal 1:: Patient to be I with HEP for back Goal Progress: Goal Met Goal 2:: Patient to demonstrate 50 % with improvement with less pain and function Goal Progress: Goal Met Goal 3:: Patient to improve lumbar ROM for function of recovery for to put on shoes Goal 4:: Patient to improve back oswestry score by 5 points to improve QOL Goal Progress: Goal Met Goal 5:: Patient be able to walk or stand > 10mins for ADL's Goal Progress: Goal Met Plan Plan: D/C D/C Information Discharge Comments: HEP d/c sentence: If there are questions or concerns regarding this patient's physical therapy, please feel free to call me at [phone]. Thank you for the referral of this patient. Sincerely, Kin Buck PT, Cert MDT, OCS Balance/Gait/Functional tests Balance/Special Test Scores Oswestry Low Back Score: 22 Improvement % Improvement: 30 04/28/24 0948 CC: Dr. Fariha Wu MD; Dr. Christopher Eng DO JLA Signed [facility] L/S Spine Bending Flex/[place] 04-07-2024 L/S Spine Bending Flex/Ext [facility] [address] [place] [address] L/S Spine Bending Flex/Ext MR#: [id number] Acct: [id number] Name: DONALD WINN Rep #: [id number] : 1945 M 78 From: Manuel mccollum MD PCP: Dr. Christopher Eng DO Status: DEP AMB Study: L/S Spine Bending Flex/Ext Date of Exam: 04/07 Exam# [id number] Ordering Dr: Tamera Macias [id number] STUDY: X-RAY - LUMBAR SPINE REASON FOR EXAM: Male, 78 years old. Low back pain -- flex/extension TECHNIQUE: Lateral flexion and extension view(s) of the lumbar spine were obtained. COMPARISON: February 29, 2024 FINDINGS: Stable extensive postsurgical changes including fixation hardware between L2-S1. Normal alignment. No definite flexion or extension of the lumbar spine. No subluxations. The soft tissue structures are unremarkable. RAD/L/S Spine Bending Flex/Ext IMPRESSION: Very limited examination, only flexion and extension views show minimal range of motion and no subluxations. Electronically Signed: Manuel Barrientos MD at 20:31 EDT , CC: PACO Streeter; Dr. Christopher Eng DO Drag Out Worker: Signed [facility] Orthopedic Visit Reporton Orthopedic Visit Report [facility] [address] [place] [address] [address] [place] [address] OFFICE VISIT Date of Service: 04/07/24 MR#: [id number] Acct: [id number] Name: DONALD WINN Rep #: [id number] : 1945 Provider: Dr. Manolo Hannon MD Age/Sex: 78/M Location: [facility] Status: Signed Intake Vital Signs 03/28/21 17:57 04/07/24 09:23 Height 5 ft 11 in 5 ft 11 in Weight: 191 lb BMI 26.6 Intake Visit Reasons: LUMBAR SPINE Chief Complaint: lumbar spine Is patient in pain?: Yes (lumbar spine) Pain scale (1-10): 4 Allergies No Known Allergies Allergy (Verified 04/07/24 09:25) Medications ???Medication ???Instructions ???Recorded ???Confirmed ???Type omega-3 fatty acids-fish oil 340 1 ea PO DAILY 01/14/18 03/28/21 History mg-1,000 mg capsule (Fish Oil) red yeast rice 600 mg tablet 600 mg PO DAILY 11/06/20 03/28/21 History zinc 50 mg tablet 50 mg PO DAILY 11/06/20 03/28/21 History tamsulosin 0.4 mg capsule 0.4 mg PO DAILY 03/28/21 03/28/21 History acetaminophen 650 mg 650 mg PO Q8H 04/07/24 04/07/24 History tablet,extended release (Tylenol Arthritis Pain) duloxetine 30 mg capsule,delayed 30 mg PO QDAY 04/07/24 04/07/24 History release hydrocodone 7.5 mg-acetaminophen 1 tab PO BID PRN 04/07/24 04/07/24 History 325 mg tablet Have you fallen in the past year?: No PFSH Medical History Chronic low back pain History of prostate cancer Rib pain on left side Pleural effusion Surgical History S/P insertion of spinal cord stimulator Hx of lumbosacral spine surgery History of left knee replacement Family History Father Cancer Brother Cancer Sister Cancer Social History adopted: No household members: spouse housing: house number of children: 0 current occupational status: employed 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 Manolo Hannon MD 04/07/24921. Part of today???s visit was documented by [ ], acting as scribe. DONALD WINN is a 78 year old M here today for low back pain he has been experiencing for several years. He was referred by Dr. Wu who has been giving him numerous injections. His last injection was 2 weeks ago which was helpful for a week and a half. He has had injections in the SI joint and the lower back. Pt has a pain stimulator as well. He has had the stimulator in for 6-7 years and it has been helpful, states that it is MRI compatible. He also c/o bilateral leg sciatica pain and numbness for about 3 weeks. Says that the back pain bothers him more than the leg pain. Says that a couple of years ago he was able to be active with volleyball and running but since this pain has started he has not been able to. Patient is currently doing water therapy which is increasing his low back pain. Recently he has been having more trouble walking even a short distance. He has had 5 previous back surgeries. Does mention that he has noticed a change in dexterity recently with his handwriting changing. Over the last year, his balance has decreased and he has had to reach and hold on for balance more frequently. Ortho Exam General General: Yes no acute distress Neurologic: Yes alert and Yes oriented x3 Spine SPINE TESTING CERVICAL THORACIC LUMBAR Musculoskeletal Strength 0=absent - 5=normal Details: Physical examination of the back shows a well healed midline surgical incision and several well healed paramedian and transverse incisions. Neurological exam of the lower extremities shows 5x5 power and upper extremities shows 5x5 power. Normal sensations across all dermatomes. No hyperreflexia. No clonus. No midline or paraspinal tenderness. Figure 4 negative. Gaenslen's negative. Nathaly's positive bilaterally. Romberg's positive. 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 [facility] Inital Evaluation (1) - PTon 03-27-2024 Inital Evaluation (1) - PT [facility] [address] [place] [address] / REHABILITATION SERVICES INITIAL EVALUATION MR#: [id number] Acct: [id number] Name: DONALD WINN Rep #: [id number] : 1945 78 From: Kin Buck PT Cert. MD Zuñiga, OCS Referring Dr.: Dr. Fariha Wu MD Status: REG RCR Insurance: MEDICARE PART A B [facility] Patient's Visit Information Visit Information Visit Information: DONALD WINN is a 78 year old M referred to Physical Therapy by Dr. Fariha Wu MD with a diagnosis of POST LAMINECTOMY SYNDROME. Date of Evaluation: 03/17/24 Physical Therapist: Kin Buck PT, Cert T, OCS Visit Plan Frequency: 2x /Week Duration: 4 Weeks Plan: PT INTERVENTIONS 2X WEEK FOR 4 WEEKS AQUATIC THERAPY FOR DLS ,POSTURAL EX'S ,LE FLEXABILITY ,BLE STRENGTHENING AND ACTIVITY MODIFICATION Subjective Subjective: This 78 y/o male presents to physical therapy with back pain. Patient many years . Patient has 4 back surgery which consisted of lumbar fusion. Patient last surgery 2017. Patient has been undercare of DR Garcia who has had pain management with last epidural injection last week . Patient has had multiple injections and had pain stimulator 5 years ago. Pain medication Nacro. Aggravating activity walking ,standing ,5 mins, bending and lifting. Alleviating factors rest. Dr recommended to see Dr Hannon and PT . C/O paresthesia/tingling in feet. Coughing/sneezing-.Pain affects sleeping. Bowel/bladder-.Patient pain affects QOL adn function. Patient goals to decrease pain. SOCIAL: VOCATION: retired Pain Bilateral: Pain Intensity (Out of 10): 5 Pain Intensity Range: 10 Objective Objective: POSTURE:mild forward posture NEURO: paresthesia/tingling feet/toes reflexes L3-4,L4-5,L5-S1 1/3 PALAPTION: tender LS/SI FLEXABILITY: hamstrings min tight LUMBAR ROM: flexion mod loss ,extension mod loss ,side glides min/mod loss MMT: quads/hams 4/5 ,hip flexion 4/5 ,ankle 4/5 Special Tests L/S Slump test left side: Negative L/S Slump test right side: Negative L/S Left Straight Leg Raise: Negative L/S Right Straight Leg Raise: Negative Balance/Special Test Scores Oswestry Low Back Score: 24 Goals Goal 1:: Patient to be I with HEP for back Goal Time Frame: 4-6 Weeks Goal 2:: Patient to demonstrate 50 % with improvement with less pain and function Goal Time Frame: 4-6 Weeks Goal 3:: Patient to improve lumbar ROM for function of recovery for to put on shoes Goal Time Frame: 4-6 Weeks Goal 4:: Patient to improve back oswestry score by 5 points to improve QOL Goal Time Frame: 4-6 Weeks Goal 5:: Patient be able to walk or stand > 10mins for ADL's Goal Time Frame: 4-6 Weeks Rehabilitation Potential Physical Therapy Diagnosis: This patient has multiple back surgery with chronic pain with pain worse with position and motion testing and walking/standing thus benefit from skilled PT Rehabilitation Potential: Fair Anticipated Interventions Patient/Client Instruction: Educate patient on: Condition and Plan of Care For the Purpose of:: To decrease pain, To increase ROM, To improve muscle performance and motor function, To improve ability to perform ADL's, To increase tolerance to activity/condition/posit ion, To improve ability of physical actions for home/community/work/leis ure, To improve gait and locomotor functions, To improve health of tissue, To decrease soft tissue restriction, To increase flexibility/ROM and To improve endurance Therapeutic Exercise to Include: Strength training, Body mechanics, Postural training, Flexibilty training, In an aquatic setting and Dynamic Lumbar Stabilization For the Purpose of:: To decrease pain, To increase ROM, To improve muscle performance and motor function, To improve ability to perform ADL's, To increase tolerance to activity/condition/posit ion, To improve ability of physical actions for home/community/work/leis ure, To improve health of tissue, To decrease soft tissue restriction, To increase flexibility/ROM and To improve endurance Text: Thank you for the opportunity to evaluate your patient. For Medicare and Medicare HMO plans, please review the plan of care and approve it. It will need to be FAXED BACK to us at [phone] for Medicare purposes. For Medicare only, by signing this I certify the plan of care. Please let me know if there are questions or concerns regarding this plan of care. Physician Signature: Date: ____ 03/27/24 1556 CC: Dr. Fariha Wu MD; Dr. Christopher Eng DO CHRISTIANE Signed [facility] Inital Evaluation (1) - PTon 03-17-2024 Inital Evaluation (1) - PT [facility] [place] [address] / REHABILITATION SERVICES INITIAL EVALUATION MR#: [id number] Acct: [id number] Name: DONALD WINN Rep #: [id number] : 1945 78 From: Kin Buck PT, Cert. MD Zuñiga, OCS Referring Dr.: Dr. Fariha Wu MD Status: REG RCR Insurance: MEDICARE PART A B [facility] Patient's Visit Information Visit Information Visit Information: DONALD WINN is a 78 year old M referred to Physical Therapy by Dr. Fariha Wu MD with a diagnosis of POST LAMINECTOMY SYNDROME. Date of Evaluation: 03/17/24 Physical Therapist: Kin Buck, PT, Cert MDT, OCS Visit Plan Frequency: 2x /Week Duration: 4 Weeks Plan: PT INTERVENTIONS Subjective Subjective: This 78 y/o male presents to physical therapy with back pain. Patient many years . Patient has 4 back surgery which consisted of lumbar fusion. Patient last surgery 2016. Patient has been undercare of DR Garcia who has had pain management with last epidural injection last week . Patient has had multiple injections and had pain stimulator 5 years ago. Pain medication Nacro. Aggravating activity walking ,standing ,5 mins, bending and lifting. Alleviating factors rest. Dr recommended to see Dr Hannon and PT . C/O paresthesia/tingling in feet. Coughing/sneezing-.Pain affects sleeping. Bowel/bladder-.Patient pain affects QOL adn function. Patient goals to decrease pain. SOCIAL: VOCATION: retired Pain Bilateral: Pain Intensity (Out of 10): 5 Pain Intensity Range: 10 Objective Objective: POSTURE:mild forward posture NEURO: paresthesia/tingling feet/toes reflexes L3-4,L4-5,L5-S1 1/3 PALAPTION: tender LS/SI FLEXABILITY: hamstrings min tight LUMBAR ROM: flexion mod loss ,extension mod loss ,side glides min/mod loss MMT: quads/hams 4/5 ,hip flexion 4/5 ,ankle 4/5 Special Tests L/S Slump test left side: Negative L/S Slump test right side: Negative L/S Left Straight Leg Raise: Negative L/S Right Straight Leg Raise: Negative Balance/Special Test Scores Oswestry Low Back Score: 24 Goals Goal 1:: Patient to be I with HEP for back Goal Time Frame: 4-6 Weeks Goal 2:: Patient to demonstrate 50 % with improvement with less pain and function Goal Time Frame: 4-6 Weeks Goal 3:: Patient to improve lumbar ROM for function of recovery for to put on shoes Goal Time Frame: 4-6 Weeks Goal 4:: Patient to improve back oswestry score by 5 points to improve QOL Goal Time Frame: 4-6 Weeks Goal 5:: Patient be able to walk or stand > 10mins for ADL's Goal Time Frame: 4-6 Weeks Rehabilitation Potential Physical Therapy Diagnosis: This patient has multiple back surgery with chronic pain with pain worse with position and motion testing and walking/standing thus benefit from skilled PT Rehabilitation Potential: Fair Anticipated Interventions Patient/Client Instruction: Educate patient on: Condition and Plan of Care For the Purpose of:: To decrease pain, To increase ROM, To improve muscle performance and motor function, To improve ability to perform ADL's, To increase tolerance to activity/condition/posit ion, To improve ability of physical actions for home/community/work/leis ure, To improve gait and locomotor functions, To improve health of tissue, To decrease soft tissue restriction, To increase flexibility/ROM and To improve endurance Therapeutic Exercise to Include: Strength training, Body mechanics, Postural training, Flexibilty training, In an aquatic setting and Dynamic Lumbar Stabilization For the Purpose of:: To decrease pain, To increase ROM, To improve muscle performance and motor function, To improve ability to perform ADL's, To increase tolerance to activity/condition/posit ion, To improve ability of physical actions for home/community/work/leis ure, To improve health of tissue, To decrease soft tissue restriction, To increase flexibility/ROM and To improve endurance Text: Thank you for the opportunity to evaluate your patient. For Medicare and Medicare HMO plans, please review the plan of care and approve it. It will need to be FAXED BACK to us at [phone] for Medicare purposes. For Medicare only, by signing this I certify the plan of care. Please let me know if there are questions or concerns regarding this plan of care. Physician Signature: Date: ____ 03/17/24 150 CC: Dr. Fariha Wu MD; Dr. Christopher Eng DO CHRISTIANE Signed [facility] Lumbar Spine 2 or 3 Viewson 02-29-2024 Lumbar Spine 2 or 3 Views [facility] Services [address] [place], [place] [id number] Lumbar Spine 2 or 3 Views MR#: [id number] Acct: [id number] Name: DONALD WINN Rep #: [id number] : 1945 M 78 From: Wellington Salcido MD PCP: Dr. Christopher Eng DO Status: REG CLI Study: Lumbar Spine 2 or 3 Views Date of Exam: Exam# [id number] Ordering Dr: Fariha Wu MD [id number] STUDY: X-RAY - LUMBAR SPINE REASON FOR EXAM: Male, 78 years old. Postlaminectomy syndrome. TECHNIQUE: 3 view(s) of the lumbar spine were obtained. COMPARISON: February 05, 2021 FINDINGS: Osteopenia unchanged. Normal lumbar lordosis. Mild thoracolumbar scoliosis unchanged. Stable laminectomies with posterior fusion from L2 to S1 with intervertebral disc prostheses are unchanged in position and alignment. Diffuse lumbar intervertebral disc narrowing with osteophytes most marked at L5-S1, unchanged. Stable marked vascular calcification and stimulator. RAD/Lumbar Spine 2 or 3 Views IMPRESSION: Stable ORIF of the lumbosacral spine without complications. Electronically Signed: Wellington Salcido MD at 15:37 EDT , CC: Dr. Fariha Wu MD; Dr. Chirstopher Eng DO Drag Out Worker: Signed [facility] Basophil percentageOrdered B y: Stephanie Serna on 10-18-2023 Basophil percentage 0.08 ng/mL 0.0-4.0 [facility] Comment on above: This test was perfor med using the TPSA assay method for themen[employer]icTacTi chemistry system. Values obtained with differentassay methods cannot be used interchangably.When changing PSA assays in the course of monitoring apatient, additional sequential testing should be carriedout to confirm baseline values. Laboratory - Drug toxicology Ordered By: Dr. Wu on 11-02-2022 Amphetamines Ql (U) Negative <1000 ng/mL [facility] Benzodiazepines Ql (U) Negative < 200 ng/mL [facility] Cannabinoids Screen Ql (U) Negative < 50 ng/mL [facility] Cocaine Ql (U) Negative < 300 ng/mL [facility] Opiates Ql (U) Positive < 300 ng/mL [facility] No Panel InformationOrdered By: Dr. Wu on 11-02-2022 MDMA (Ecstasy) Screen Negative < 500 ng/mL [facility] Urine Barbiturates Screen Negative < 200 ng/mL [facility] Urine Drug Screen Comment [facility] Comment on above: CONFIRMATORY TESTING FOR ALL POSITIVE URINE DRUG SCREENRESULTS WILL ONLY BE SENT OUT UPON PHYSICIAN ORDER. VISTA Urine Drug Screen methods provide only preliminaryanalytical test results. A more specific alternate chemicalmethod must be used in order to obtain a confirmedanalytical result. Gas chromatography/mass spectrometery(GC/MS) is the preferred confirmatory method. Clinicalconsideration and professional judgement should be appliedto any drug of abuse test result, particularly whenpreliminary positive results are used. URINE TCA TESTING MUST BE ORDERED SEPARATELY. USE TESTMNEMONIC: [facility] Urine Methadone Screen Negative < 300 ng/mL [facility] Urine phencyclidine (PCP) de tectionOrdered By: Dr. Wu on 11-02-2022 Phencyclidine Ql (U) Negative < 25 ng/mL [facility] No Panel InformationOrdered By: Dr. Sandoval on 10-13-2022 Prostate Specific Antigen Total 0.06 ng/mL 0.0-4.0 [facility] Comment on above: This test was perfor med using the TPSA assay method for [facility] chemistry [facility]. Values obtained with differentassay methods cannot be used interchangably.When changing PSA assays in the course of monitoring apatient, additional sequential testing should be carriedout to confirm baseline values. Absolute lymphocyte counton 04-23-2022 Lymphocytes Auto (Unsp spec) [#/Vol] 1.74 10*3/uL 0.83-4.51 [facility] Work Phone: Basophil percentageon 2021 Basophils/100 WBC (Bld) 0.3 % 0-1 [facility] Work Phone: Bilirubin [Mass/Vol] 0.50 mg/dL 0.20-1.00 [facility] Work Phone: Comment on above: For patients on eltr ombopag therapy, use of Dimension [place] TBIL is not recommended. Chloride [Moles/Vol] 107 mmol/L 98-107 [facility] Work Phone: Eosinophils/100 WBC (Bld) 1.1 % 0-5 [facility] Work Phone: Glucose [Mass/Vol] 125 mg/dL 74-106 [facility] Work Phone: Comment on above: Fasting Glucose resu lt from 100 to 125 mg/dL suggests IMPAIRED HOMEOSTASIS per A.D.A. criteria. Neutrophils (Bld) [#/Vol] 5.4 10*3/uL 2.0-7.7 [facility] Work Phone: Neutrophils/100 WBC (Bld) 68.8 % 47-70 [facility] Work Phone: Potassium [Moles/Vol] 4.1 mmol/L 3.5-5.1 [facility] Work Phone: Protein [Mass/Vol] 7.0 g/dL 6.4-8.2 [facility] Work Phone: Sodium [Moles/Vol] 140 mmol/L 136-145 [facility] Work Phone: WBC (Bld) [#/Vol] 7.9 10*3/uL 4.4-11.0 [facility] Work Phone: Blood erythrocytes count (nu mber/volume)on 04-23-2022 RBC (Bld) [#/Vol] 3.80 10*6/uL 4.6-6.2 [facility] Work Phone: Blood hemoglobin measurement (mass/volume)on 04-23-2022 Hemoglobin (Bld) [Mass/Vol] 12.3 g/dL 13.0-16.5 [facility] Work Phone: Blood lymphocytes/100 leukoc yteson 04-23-2022 Lymphocytes/100 WBC (Bld) 22.2 % 19-41 [facility] Work Phone: [phone] Blood monocytes/100 leukocyt eson 04-23-2022 Monocytes/100 WBC (Bld) 7.3 % 0-10 [facility] Work Phone: Blood platelet mean volumeon 04-23-2022 Platelet mean volume (Bld) [Entitic vol] 9.3 fL 6.2-12.0 [facility] Work Phone: Determination of erythrocyte mean corpuscular volume (MCV)on 04-23-2022 MCV (RBC) [Entitic vol] 95.5 fL 80-94 [facility] Work Phone: Hematocrit Auto (Bld) [Volum e fraction]on 04-23-2022 Hematocrit (Bld) [Volume fraction] 36.3 % 40-54 [facility] Work Phone: INR in Blood by Coagulation assayon 04-23-2022 INR Coag (Bld) [Relative time] 0.9 {INR} [facility] Work Phone: Laboratory - Chemistry and C hemistry - challengeon 04-23-2022 ALP [Catalytic activity/Vol] 88 U/L 45-117 [facility] Work Phone: ALT [Catalytic activity/Vol] 20 U/L 16-61 [facility] Work Phone: CO2 [Moles/Vol] 29.0 mmol/L 21.0-32.0 [facility] Work Phone: [phone] Globulin (S) [Mass/Vol] 3.8 g/dL 2.2-4.2 [facility] Work Phone: [phone] Urea nitrogen/Creatinine [Mass ratio] 18.1 mg/mg 10-20 [facility] Work Phone: [phone] Laboratory - Coagulationon 1 PT Coag (PPP) [Time] 12.3 s 11.7-14.9 [facility] Work Phone: [phone] Laboratory - Hematology and Cell countson 04-23-2022 Erythrocyte distribution width (RBC) [Entitic vol] 48.2 fL 35.1-43.9 [facility] Work Phone: [phone] Erythrocyte distribution width (RBC) [Ratio] 13.6 % 11.6-14.6 [facility] Work Phone: [phone] Immature granulocytes/100 WBC (Bld) 0.300 % 0.0-0.9 [facility] Work Phone: [phone] Comment on above: IG% - Immature Granu locytes (promyelocytes, myelocytes and metamyelocytes) > 1% indicates that a LEFT SHIFT is Present. MCH (RBC) [Entitic mass] 32.4 pg 27.0-32.0 [facility] Work Phone: [phone] Nucleated RBC/100 WBC (Bld) [Ratio] 0 % 0-5 [facility] Work Phone: [phone] MCHC Auto (RBC) [Mass/Vol]on 04-23-2022 MCHC (RBC) [Mass/Vol] 33.9 g/dL 32-36 [facility] Work Phone: [phone] No Panel Informationon 04-23 Estimated GFR (MDRD) Amer 107 mL/min >60 [facility] Work Phone: [phone] Comment on above: GFR Calc Estimated GFR (MDRD) Non-Af Amer 89 mL/min >60 [facility] Work Phone: [phone] Comment on above: Non- GFR Calc Platelets bldon 04-23-2022 Platelets (Bld) [#/Vol] 316 10*3/uL 150-450 [facility] Work Phone: [phone] Serum or plasma albumin coral urement (mass/volume)on 04-23-2022 Albumin [Mass/Vol] 3.2 g/dL 3.2-5.0 [facility] Work Phone: [phone] Serum or plasma albumin/glob ulin mass ratioon 04-23-2022 Albumin/Globulin [Mass ratio] 0.8 {ratio} 0.9-2.4 [facility] Work Phone: [phone] Serum or plasma calcium coral urement (mass/volume)on 04-23-2022 Calcium [Mass/Vol] 9.2 mg/dL 8.5-10.1 [facility] Work Phone: Serum or plasma creatinine m easurement (mass/volume)on 04-23-2022 Creatinine [Mass/Vol] 0.89 mg/dL 0.70-1.30 [facility] Work Phone: Comment on above: The validity of the calculated GFR & GFRAA in patients over 70 years has not been determined. Clinical correlation is essential. Serum or plasma urea nitroge n measurement (mass/volume)on 04-23-2022 Urea nitrogen [Mass/Vol] 16 mg/dL 7-18 [facility] Work Phone: [phone] Thin prep Papanicolaou smear with manual screeningon 04-23-2022 Thin prep Papanicolaou smear with manual screening 15 U/L 15-37 [facility] Work Phone: [phone] Thin prep Papanicolaou smear with manual screening 4 5-15 [facility] Work Phone: [phone] Panel Informationon 04-03 Prostate Specific Antigen Total 0.04 ng/mL 0.0-4.0 [facility] Work Phone: Comment on above: This test was perfor med using the TPSA assay method for the[facility] chemistry system. Values obtained with differentassay methods cannot be used interchangably.When changing PSA assays in the course of monitoring apatient, additional sequential testing should be carriedout to confirm baseline values. Laboratory - Drug toxicology on 02-18-2022 Amphetamines Ql (U) Negative <1000 ng/mL [facility] Work Phone: [phone] Benzodiazepines Ql (U) Negative < 200 ng/mL [facility] Work Phone: [phone] Cannabinoids Screen Ql (U) Negative < 50 ng/mL [facility] Work Phone: [phone] Cocaine Ql (U) Negative < 300 ng/mL [facility] Work Phone: [phone] Opiates Ql (U) Positive < 300 ng/mL [facility] Work Phone: [phone] Panel Informationon 02-18 MDMA (Ecstasy) Screen Negative < 500 ng/mL [facility] Work Phone: [phone] Miscellaneous Test See comment [facility] Work Phone: [phone] Comment on above: [id number] 6+OXYCODONE-B UND (ng/mL) DRUG RESULT SCREEN CUTOFF____ Amphetamines,Urine Negative ng/mL 1000 Amphetamine test includes Amphetamine and Methamphetamine.Barbiturates Negative ng/mL 200Benzodiazepines Negative ng/mL 200Cannabinoid Negative ng/mL 20Cocaine (Metab) Negative ng/mL 300Opiates Positive ng/mL 300 Opiates test includes Codeine, Morphine, Hydromorphone, Hydrocodone. Codeine Negative 300 Morphine Negative 300 Hydromorphone Negative 300 Hydrocodone Positive Hydrocodone Conf, MS, UR 574 ng/mL 300Oxycodone/Oxymorphone,Urine Negative ng/mL 300 Test includes Oxydodone and Oxymorphone. TESTING PERFORMED AT [facility]. ORIGINAL REPORT ON FILE IN LAB CONTAINS ADDITIONAL TEST SITE INFORMATION. Urine Barbiturates Screen Negative < 200 ng/mL [facility] Work Phone: Urine Drug Screen Comment [facility] Work Phone: Comment on above: CONFIRMATORY TESTING FOR ALL POSITIVE URINE DRUG SCREENRESULTS WILL ONLY BE SENT OUT UPON PHYSICIAN ORDER. VISTA Urine Drug Screen methods provide only preliminaryanalytical test results. A more specific alternate chemicalmethod must be used in order to obtain a confirmedanalytical result. Gas chromatography/mass spectrometery(GC/MS) is the preferred confirmatory method. Clinicalconsideration and professional judgement should be appliedto any drug of abuse test result, particularly whenpreliminary positive results are used. URINE TCA TESTING MUST BE ORDERED SEPARATELY. USE TESTMNEMONIC: [facility] Urine Methadone Screen Negative < 300 ng/mL [facility] Work Phone: Urine phencyclidine (PCP) de tectionon 02-18-2022 Phencyclidine Ql (U) Negative < 25 ng/mL [facility] Work Phone: Anesthesia Noteon 01-25-2020 Anesthesia Note [facility] Patient: DONALD WINN [address] [place] [address] MR#: [id number] ANESTHESIA NOTE : Service Date: 01/25/20747 Post-anesthesia Note Note Patient assessed post operatively for the following: [x ] Respiratory function, including respiratory rate, airway patency and oxygen saturation [x ] Cardiovascular function, including pulse rate and blood pressure [x ] Mental status [x ] Temperature [x ] Pain [x ] Nausea and vomiting [x ] Postoperative hydration [x ] No Visual Changes Due to the following condition(s) additional monitoring may be necessary: [None ] [x ] No apparent anesthesia complications noted. [x ] Status as per pre-op Electronically Signed eSign Date and Time Viraj Richardson APRN-[employer]UCATION [employer] 01/25/20747 Neli Guerin MD Normal [facility] BASIC MET PANELon 01-25-2020 Anion gap [Moles/Vol] 12 mmol/L Normal 6-18 [facility] Comment on above: Order Comment: CONSE RVATION Performed By: #### L 500.03480, L500.42267, L500.07723 ####Test performed at: [address] [address] Calcium [Mass/Vol] 8.9 mg/dL Normal 8.5-10.1 [facility] Comment on above: Order Comment: CONSE RVATION Performed By: #### L 500.40816, L500.51781, L500.10318 ####Test performed at: [address] [address] Chloride [Moles/Vol] 106 mmol/L Normal 98-107 [facility] Comment on above: Order Comment: CONSE RVATION Performed By: #### L 500.29580, L500.59114, L500.38092 ####Test performed at: [address] [address] CO2 [Moles/Vol] 26 mmol/L Normal 21-32 [facility] Comment on above: Order Comment: CONSE RVATION Performed By: #### L 500.77121, L500.07803, L500.05974 ####Test performed at: [address] [address] Creatinine [Mass/Vol] 0.723 mg/dL Normal 0.700-1.300 [facility] Comment on above: Order Comment: CONSE RVATION Performed By: #### L 500.16357, L500.08425, L500.89120 ####Test performed at: [address] [address] Glucose [Mass/Vol] 132 mg/dL High 70-99 [facility] Comment on above: Order Comment: CONSE RVATION Result Comment: Fast ing GLUCOSE reference range has been updated per (ADA) [place] [employer]'s recommendation. 09/20/2018 Performed By: #### L 500.77266, L500.84171, L500.14441 ####Test performed at: [address] [address] OSM 291 mosm/kg Normal 270-300 [facility] Comment on above: Order Comment: CONSE RVATION Performed By: #### L 500.30977, L500.65502, L500.42233 ####Test performed at: [address] [address] Potassium [Moles/Vol] 4.2 mmol/L Normal 3.5-5.1 [facility] Comment on above: Order Comment: CONSE RVATION Performed By: #### L 500.81561, L500.13323, L500.90607 ####Test performed at: [address] [address] Sodium [Moles/Vol] 140 mmol/L Normal 136-145 [facility] Comment on above: Order Comment: CONSE RVATION Performed By: #### L 500.72482, L500.23810, L500.45991 ####Test performed at: [address] [address] Urea nitrogen [Mass/Vol] 11 mg/dL Normal 7-18 [facility] Comment on above: Order Comment: CONSE RVATION Performed By: #### L 500.98571, L500.20940, L500.89836 ####Test performed at: [address] [address] CBC W/DIFFon 01-25-2020 BASO ABS 0.0 K/uL Normal 0.0-0.2 [facility] Comment on above: Order Comment: CONSE RVATION Performed By: #### L 200.63628 ####Test performed at: [address] [address] Basophils/100 WBC (Bld) 0.1 % Normal [facility] Comment on above: Order Comment: CONSE RVATION Performed By: #### L 200.86673 ####Test performed at: [address] [address] EOS ABS 0.0 K/uL Normal 0.0-0.5 [facility] Comment on above: Order Comment: CONSE RVATION Performed By: #### L 200.16106 ####Test performed at: [address] [address] Eosinophils/100 WBC (Bld) 0.0 % Normal [facility] Comment on above: Order Comment: CONSE RVATION Performed By: #### L 200.81922 ####Test performed at: [address] [address] Erythrocyte distribution width (RBC) [Ratio] 13.2 % Normal 11.5-14.5 [facility] Comment on above: Order Comment: CONSE RVATION Performed By: #### L 200.45075 ####Test performed at: [address] [address] Hematocrit (Bld) [Volume fraction] 35.2 % Low 39.0-55.0 [facility] Comment on above: Order Comment: CONSE RVATION Performed By: #### L 200.30957 ####Test performed at: [address] [address] Hemoglobin (Bld) [Mass/Vol] 11.9 g/dL Low 14.0-16.5 [facility] Comment on above: Order Comment: CONSE RVATION Performed By: #### L 200.79051 ####Test performed at: [address] [address] IG % 0.3 % Normal [facility] Comment on above: Order Comment: CONSE RVATION Performed By: #### L 200.73390 ####Test performed at: [place] [id number] IG ABS 0.05 K/uL Normal 0-0.05 [facility] Comment on above: Order Comment: CONSE RVATION Performed By: #### L 200.98367 ####Test performed at: [place] [address] Lymphocytes (Bld) [#/Vol] 0.7 10*3/uL Low 1.2-3.5 [facility] Comment on above: Order Comment: CONSE RVATION Performed By: #### L 200.71391 ####Test performed at: [place] [address] Lymphocytes/100 WBC (Bld) 4.6 % Normal [facility] Comment on above: Order Comment: CONSE RVATION Performed By: #### L 200.16529 ####Test performed at: [place] [id number] MCH (RBC) [Entitic mass] 32.2 pg Normal 25.4-34.6 [facility] Comment on above: Order Comment: CONSE RVATION Performed By: #### L 200.68497 ####Test performed at: [place] [id number] MCHC (RBC) [Mass/Vol] 33.8 g/dL Normal 31.5-36.5 [facility] Comment on above: Order Comment: CONSE RVATION Performed By: #### L 200.66473 ####Test performed at: [address] [address] MCV (RBC) [Entitic vol] 95.4 fL Normal 80.0-100.0 [facility] Comment on above: Order Comment: CONSE RVATION Performed By: #### L 200.25548 ####Test performed at: [address] [address] MONO ABS 0.7 K/uL Normal 0.0-1.0 [facility] Comment on above: Order Comment: CONSE RVATION Performed By: #### L 200.49627 ####Test performed at: [address] [address] Monocytes/100 WBC (Bld) 4.5 % Normal [facility] Comment on above: Order Comment: CONSE RVATION Performed By: #### L 200.85457 ####Test performed at: [address] [address] NEUTROPHIL ABS 13.2 K/uL High 1.4-6.6 [facility] Comment on above: Order Comment: CONSE RVATION Performed By: #### L 200.70537 ####Test performed at: [address] [address] Neutrophils/100 WBC (Bld) 90.5 % Normal [facility] Comment on above: Order Comment: CONSE RVATION Performed By: #### L 200.32049 ####Test performed at: [address] [address] NRBC # 0.000 K/uL Normal 0-0.012 [facility] Comment on above: Order Comment: CONSE RVATION Performed By: #### L 200.95683 ####Test performed at: [address] [address] NRBC % 0.0 /100 WBC Normal 0-0.2 [facility] Comment on above: Order Comment: CONSE RVATION Performed By: #### L 200.08374 ####Test performed at: [address] [address] Platelet mean volume (Bld) [Entitic vol] 9.3 fL Normal 8.7-12.4 [facility] Comment on above: Order Comment: CONSE RVATION Performed By: #### L 200.46221 ####Test performed at: [address] [address] Platelets (Bld) [#/Vol] 310 10*3/uL Normal 140-440 [facility] Comment on above: Order Comment: CONSE RVATION Performed By: #### L 200.77392 ####Test performed at: [address] [address] RBC (Bld) [#/Vol] 3.69 10*6/uL Normal 3.5-5.5 [facility] Comment on above: Order Comment: CONSE RVATION Performed By: #### L 200.72480 ####Test performed at: [address] [address] WBC (Bld) [#/Vol] 14.6 10*3/uL High 3.9-11.0 [facility] Comment on above: Order Comment: CONSE RVATION Result Comment: Delt a: 6.2 on 01/18/20 Performed By: #### L 200.04860 ####Test performed at: [place] [id number] Discharge CCD Assessmenton 0 01-25-2020 Discharge CCD Assessment [facility] Patient: DONALD WINN [address] [place] [address] MR#: [id number] DISCHARGE CCD ASSESSMENT : 43 Service Date: 01/25/201104 Discharge CCD Assessment Assessment Patient to be discharged home to continue home therapy exercises, pain control, wound care and ambulation Electronically Signed eSign Date and Time Cassie Mayfield 01/25/201104 Christopher Rowe MD Normal [facility] EST. CREAT CLRon 01-25-2020 Creatinine [Mass/Vol] 111.130 ML/MIN Normal [facility] Comment on above: Order Comment: CONSE RVATION Result Comment: This result is an ESTIMATED blood creatinine clearance value which is derived from the patient age, sex, weight, and previous blood creatinine result. Performed By: #### L 500.89542, L500.56254, L500.07344 ####Test performed at: [place] [address] GFR ESTIMATEon 01-25-2020 IF AMER > 60 Normal > 60 [facility] Comment on above: Order Comment: CONSE RVATION Result Comment: eGFR (Estimated GFR) Units of measure:mL/min/1.73 meters sq. *CALCULATION REVISED 04/16/2015;IDMS-traceable MDRD equation eGFR is derived from the reexpressed MDRD Study equation using the following parameters: serum creatinine, age, gender and race. An eGFR<60 mL/min/1.73m2 for >3 months is consistent with chronic kidney disease. Refer to KDOQI guidelines for clinical interpretation. Performed By: #### L 500.97144, L500.79202, L500.35615 ####Test performed at: [place] [address] IF non-AFR AMER > 60 Normal > 60 [facility] Comment on above: Order Comment: CONSE RVATION Performed By: #### L 500.22135, L500.47420, L500.04458 ####Test performed at: [place] [address] Internal Med Progress Noteon 01-25-2020 Internal Med Progress Note [facility] Patient: DONALD WINN [address] [place] [address] MR#: [id number] PROGRESS NOTE - Internal Medicine : 43 Service Date: 01/25/20 0758 Subjective Primary Resident: Alexander Mejia After Hours Call: [phone] Red Team Summary of Stay Mr Winn is a 74 yo CM with PMH of prostate cancer treated w/ radiation and Current tobacco smoker. He is is POD-1 s/p L2-L4 decompression/discectomy /fusion surgery. IM was consulted for Post Op medical management. Neurovasc intact. Intraop EBL 50cc. No mehta and no drain. Pain management/DVT prophylaxis per surgery. PT/OT on board. On Incentive spirometry. Events since last encounter None Subjective Patient seen and examined. Patient report s back surgical site pain is 4/10, no tingling/ numbness. Otherwise the rest of the ROS is neg. Patient is passing gas. Patient is ambulating well without any difficulties. Reports compliance with Incentive Spirometry. Patient tolerating liquids and solids. General Denies Chills, Denies Night sweats HEENT Denies Head Aches, Denies Visual Changes, Denies Dysphasia, Denies Sinus Congestion Pulmonary Denies Dyspnea, Denies Cough Cardiovascular Denies Chest Pain, Denies Palpitations, Denies Orthnopnea Gastrointestinal Denies Nausea, Denies Vomiting, Denies Abdominal Pain Genitourinary Denies Dysuria, Denies Frequency, Denies Incontinence Musculoskeletal Back Pain, Denies Neck Pain, Denies Shoulder Pain, Denies Arm Pain Neurological Denies Weakness, Denies Numbness, Denies Confusion, Denies Seizures Objective Exam Vitals and I/O Vital Signs Verdana 4d Result Date Time Pulse Ox 96 01/24 0800 B/P 115/59 01/24 0800 O2 Delivery ROOM AIR 01/24 0800 Temp 36.6 01/24 0800 Pulse 81 01/24 0800 Resp 18 01/24 0800 O2 Flow Rate 3 01/23 1415 Intake AND Output Verdana 4d 01/24 2300 01/23 2300 Intake Total 400 1654 Output Total 1500 1080 Balance -1100 574 Intake, IV 494 Oral 400 1160 utput, Urine 1500 1080 Patient 89 kg eight Weight PATIENT STATES easurement ethod General Appearance Alert, Oriented X3, Cooperative, No Acute Distress HEENT Atraumatic, Mucous Membr. moist/pink Lungs Clear to Auscultation, Normal Air Movement Neck Supple, No JVD, No thryomegaly Cardiovascular Regular Rate, Normal S1, Normal S2, No Murmurs Abdomen Normal Bowel Sounds, Soft, No Tenderness Extremities No Edema, Normal Pulses, No Tenderness/Swelling, Back sugical site covered with dressing, no drainage. No drain in place Skin No Rashes Neurological Normal Speech, Strength at 5/5 X4 Ext, Normal Tone, Sensation Intact, Cranial Nerves 3-12 NL Psych/Mental Status Mental Status NL Results Results All Laboratory Tests 01/24 0725 Chemistry Sodium (136 - 145 mmol/L) 140 Potassium (3.5 - 5.1 mmol/L) 4.2 Chloride (98 - 107 mmol/L) 106 Carbon Dioxide (21 - 32 mmol/L) 26 BUN (7 - 18 mg/dL) 11 mg/dL) 0.723 Est GFR ( Amer) (> 60) > 60 Est GFR (Non-Af Amer) (> 60) > 60 Glucose (70 - 99 mg/dL) 132 Hematology WBC (3.9 - 11.0 K/uL) 14.6 Hgb (14.0 - 16.5 g/dL) 11.9 Hct (39.0 - 55.0 %) 35.2 Plt Count (140 - 440 K/uL) 310 Neut % (Auto) (%) 90.5 Assessment/Plan-Internal Med Problem List 1. S/P lumbar fusion 2. Prostate ca 3. BPH (benign prostatic hypertrophy) Med Reasons/Tx for Con't stay POD-1 s/p L2-L4 decompression/discectomy /fusion surgery. Assessment #POD-1 s/p L2-L3 discectomy #Acute blood loss anemia #Postoperative HTN #DVT prophylaxis -Patient reports back surgical site pain is 4/10 well controlled with current analgesia -Vitals: Stable -P/E: As above -Labs: Hb-11.9(Baseline Hb not in the system), WBC of 14.6 likley from Steroids -Intraop EBL minimal -Continue on Incentive spirometry -Continue on Vasotec 2.5 mg prn, Feratab daily, Zofran prn -Pain management and DVT prophylaxis per ortho team -Bowel care with Colace, Ducolex, Milk of Magnesia #Hx of prostate cancer -Continue on flomax and salmon oil #Smoking sensation -nicotine patch and gum -Tellers Supervisor on tobacco cessation Be sure to note changes Be sure to note changes DVT Prophylaxis Per orthoteam Electronically Signed eSign Date and Time Luciana Mejia Res., Jayantilal MD 01/25/20 1124 Normal [facility] OT Therapy Recommendationson 01-25-2020 OT Therapy Recommendations [facility] Patient: DONALD WINN [address] [place] [id number] MR#: [id number] OT THERAPY RECOMMENDATIONS : 43 Service Date: 01/25/20 1333 Therapy Recommendations Therapy Recommendations Recommendations Occupational therapy eval complete. No skilled OT indicated. Recommend home with family assist. D/C OT services. Electronically Signed eSign Date and Time Fee,Amira OT 01/25/20 1333 Normal [facility] Orthopedic Progress Noteon 0 01-25-2020 Orthopedic Progress Note [facility] Patient: DONALD WINN [place] [id number] MR#: [id number] PROGRESS NOTE - Orthopedic : 44 Service Date: 01/25/20 1153 Subjective Summary of Stay pod #1 s/p L2-3 discectomy, decompression and fusion by Dr. Rowe Subjective Patient doing well this morning, seen ambulating with walker in hallway. States severe back pain and numbness in toes bilaterally is gone, minimal post op pain at this time. Denies any chest pain, SOB, calf pain, n/v/d, Davis or dizziness. Voiding without difficulty, states he voids frequently and in small amounts at home, no difference in pattern here at hospital. Passing gas, tolerating diet. No new concerns at this time. General Denies Chills, Denies Night sweats, Denies Fatigue, Denies Malaise, Denies Appetite, Denies Other HEENT Denies Head Aches, Denies Visual Changes, Denies Eye Pain, Denies Ear Pain, Denies Dysphasia, Denies Sinus Congestion, Denies Post Nasal Drip, Denies Sore Throat, Denies Other Pulmonary Denies Dyspnea, Denies Cough, Denies Pleuritic Chest Pain, Denies Other Cardiovascular Denies Chest Pain, Denies Palpitations, Denies Orthnopnea, Denies Paroxysmal Noc. Dyspnea, Denies Edema, Denies Lt Headedness, Denies Other Gastrointestinal Denies Nausea, Denies Vomiting, Denies Abdominal Pain, Denies Diarrhea, Denies Constipation, Denies Melena, Denies Hematochezia, Denies Other Genitourinary Denies Dysuria, Denies Frequency, Denies Incontinence, Denies Hematuria, Denies Retention, Denies Other Musculoskeletal Denies Neck Pain, Denies Shoulder Pain, Denies Arm Pain, Denies Back Pain, Denies Hand Pain, Denies Leg Pain, Denies Foot Pain, Denies Other Neurological Denies Weakness, Denies Numbness, Denies Incoordination, Denies Change in Speech, Denies Confusion, Denies Seizures, Denies Other Objective Exam Vitals and I/O Vital Signs Verdana 4d Result Date Time Pulse Ox 96 01/24 0800 B/P 115/59 01/24 0800 O2 Delivery ROOM AIR 01/24 0800 Temp 36.6 01/24 0800 Pulse 81 01/24 0800 Resp 18 01/24 0800 O2 Flow Rate 3 01/23 1415 Intake AND Output Verdana 4d 01/24 2300 01/23 2300 Intake Total 400 1654 Output Total 1500 1080 Balance -1100 574 Intake, IV 494 Oral 400 1160 utput, Urine 1500 1080 Patient 89 kg eight Weight PATIENT STATES easurement ethod General Appearance Alert, Oriented X3, No Acute Distress HEENT Atraumatic, PERRLA Lungs Clear to Auscultation, Normal Air Movement Neck Supple, No JVD Cardiovascular Regular Rate, Normal S1, Normal S2 Abdomen Soft, No Tenderness Extremities No Edema, Normal Pulses, No Tenderness/Swelling Skin No Rashes, No Breakdown, No Significant Lesion Neurological Strength at 5/5 X4 Ext, Sensation Intact Psych/Mental Status Mental Status NL, Mood NL Other Physical Findings Lumbar incision x2 with dermabond prineo, no signs of drainage or edema. DF/PF 5/5 in LE b /l, sensation intact throughout, distal pulses 2+ Assessment and Plan - ICD10 Problem List 1. S/P lumbar fusion 2. Prostate ca 3. BPH (benign prostatic hypertrophy) Med Reasons/Tx for Con't stay dc home today Assessment Plan -dc home today -[place] 7.5/ script given for homegoing pain control -follow up with Dr. Rowe in 2 weeks Electronically Signed eSign Date and Time Cassie Mayfield 01/25/20 1157 Christopher Rowe MD [facility] PT Therapy Recommendationson 01-25-2020 aPTT Coag (Shania) [Time] [facility] Patient: DONALD WINN [address] [place] [id number] MR#: [id number] PT THERAPY RECOMMENDATIONS : 44 Service Date: 01/25/208 Therapy Recommendations Therapy Recommendations Recommendations Physical therapy evaluation completed. No acute PT indicated at this time, D/C from acute PT. Rec D/C home with assist PRN. Brady Rodriguez, PT, DPT Available via [facility] Electronically Signed eSign Date and Time Brady Rodriguez PT 01/25/20 191 Normal [facility] z OT Inpatient Discharge Not viji 01-25-2020 z OT Inpatient Discharge Note [facility] Patient: DONALD WINN[address] [place], [place] [id number] MR#: [id number] OT INPATIENT DISCHARGE NOTE : 44 Service Date: 01/25/20 1408 z OT HPI Discharge Note Total number of visits 1 Date of Discharge 01/25/20 Start of Care Date 01/25/20 z OT Inpatient AP Discharge Treatment Therapeutic Exercise, Therapeutic Activity, Patient Education, Orthotic Management, Self Care/ADL Training, HEP Equipment Issued None Treatment Goals Achieved: Yes Plan Discharge from OT DC Recommendations Home-No Home Health Care, Family Assistance OT Status: DISCHARGED Electronically Signed eSign Date and Time Amira Shay OT 01/25/20 1408 Normal [facility] z OT Inpatient Evaluationon 01-25-2020 z OT Inpatient Evaluation [facility] Patient: DONALD WINN [place] [id number] MR#: [id number] OT INPATIENT EVALUATION : 44 See Addendum Khurramdachad 4d Inpatient OT HPI Date of Service 01/25/20 Time In: 1032 Time Out: 1100 Total Treatment Time (Mins) 28 Visit Reason LUMBAR STENOSIS Surgery Type/Date Lumbar fusion L2-3, 01/24/2020. Referral Date 01/24/20 Tx Diagnosis: LOW BACK PAIN Insurance Name MEDICARE Hospital Course POD#1. RN cleared pt. to participate. Pt. supine in bed and agreeable to participate and reports improvement symptoms post op. Past Medical/Social History Problem List Medical Problems BPH (benign prostatic hypertrophy) Chronic low back pain Lumbar disc disease Lumbar stenosis Overweight Pre-op evaluation Prostate ca Surgical Problems S/P lumbar fusion Living Arrangements Home Lives With Spouse Steps to Enter House 0 Stairs Inside House 0 Adaptive Equipment Single Point Cane, Wheeled Walker ADL Equipment High Toilet, Elev. Toilet Seat no Arms, Grab Bars, Long Shoe Horn, Ruling Machine Feeder, Sock Aid Bedroom Location 1st Floor Bathroom Location 1st Floor Shower Walk in Tasks Prior to Admission mod I-I ADLs, IADLs, AND mobility. Denies need to use AD to ambulate or having falls. Works fulltime in [employer]. Objective Vital Signs Comments Objective Precautions Lumbar Spine, brace Vital Signs Comments VSS, pt. tolerated all act. well. Pain Scale 5 Pain Character Ache, Sore Pain Location Incisional Equipment Peripheral IV Orientation Person, Place, Time, Situation Behavior Cooperative Sensation Within Functional Limits Tone Within Functional Limits Hand Dominance Right Coordination Fine Motor Coordination Within Functional Limits Gross Motor Coordination Within Functional Limits Coordination Within Functional Limits Opposition Intact Proprioception Within Normal Limits ROM RUE ROM Within Functional Limits, but slightly limited R shoulder 0-110. LUE ROM Within Functional Limits Comments Pt. instructed in AND performed light post op UE ther ex: 10x1 all planes. Good return demo' d. Strength RUE Strength Within Functional Limits LUE Strength Within Functional Limits Outcome Measures Rajani Score Rajani Score Response Value Feeding Independent 10 Bathing Needs Help 0 Grooming Independent 5 Dressing Independent 10 Bowels Continent 10 Bladder Continent 10 Toilet Independent 10 Transfer(Bed to Chair and Back) Independent 15 obility (On Level Surfaces) Independent 15 tairs Independent 10 otal 95 AM-PAC Inpt Daily Activity AM-PAC Inpt Daily Activity Response Value Lower Body Clothing None 4 Bathing A Little 3 Toileting None 4 Upper Body Clothing None 4 Personal Grooming None 4 Eating Meals None 4 Total 23 Comments 5% disability based on the Rajani Index Transfers Treatment Additional Minutes of Tx Performed 10 Remained in Chair All Needs Within Reach Yes Assessment/Plan for Inpt OT DC Recommendations Home-No Home Health Care, Family Assistance Topic #1 Rehabilitation Techniques Teaching Method: VERBAL EXPLANATION Teaching Method: WRITTEN MATERIALS Teaching Method: TEACHBACK Outcome: VERBALIZED/ADEQ TEACHBACK Rehab Potential Excellent Treatment Tolerance Good Assessment Patient does not demonstrate additional need for skilled OT services at this time. Patient Stated Goal: n/a Goals discussed with: Patient Frequency of Therapy Eval Only Patient Status DISCHARGED Eval Completed Yes Eval Complexity Low Complexity Treatment Performed Yes ADDENDUM: AMIRA SHAY on 01/25/20 at 1417 Addendum Add Additional information added as document submitted accidently before being completed. ADL Function Upper Body Dressing Modified Independent Lower Body Dressing Modified Independent (with AE ) Toileting Modified Independent Feeding Independent Grooming Independent Comments Patient instructed in and performed lower body dressing/ADLs via modified techniques and with long handled adaptive equipment: clerical administrative assistant, sock aid, and long shoe horn. Good return understanding verbalized/demo'd. Pt. opting to purchase equipment as needed once home. Transfers Supine to Sit Modified Independent Sit to Stand Modified Independent Stand to Sit Modified Independent Sit to Supine Modified Independent Bed to Chair Modified Independent Chair to Bed Modified Independent Toilet Modified Independent Rolling Modified Independent Comments Good return log roll. All transfers and ambulation mod I level no device. Good safety/ balance throughout. Static Sitting Balance Good Dynamic Sitting Balance Good Static Standing Balance Good Dynamic Standing Balance Good Electronically Signed eSign Date and Time Amira Shay OT 01/25/20 1417 Normal [facility] z PT Inpatient Discharge Not viji 01-25-2020 z PT Inpatient Discharge Note [facility] Patient: DONALD WINN [address] [place] [address] MR#: [id number] PT INPATIENT DISCHARGE NOTE : 44 Service Date: 01/25/20 1925 z PT Inpt. HPI Discharge Note Discharge Time 1137 Total number of visits 1 Medical Diagnosis/ICD Code Lumbar stenosis Referring Physician Cassie Mayfield Date of Discharge 01/25/20 Start of Care Date 01/25/20 Final Date of Care 01/25/20 z PT Inpatient AP Discharge Treatment: Therapeutic Activity, Patient Education, Therapeutic Exercise, Gait Training, HEP, Neuromuscular Reeducation Equipment Issued Handouts, Home Exercise Plan Treatment Goals Achieved: Yes Plan Follow up w/ Physician, Discharge from PT Discharge Recommendations Home-No Home Health Care PT Status: DISCHARGED Electronically Signed eSign Date and Time Brady Rodriguez PT 01/25/20 192 Normal [facility] z PT Inpatient Evaluationon 01-25-2020 z PT Inpatient Evaluation [facility] Patient: DONALD WINN [address] [place] [address] MR#: [id number] PT INPATIENT EVALUATION : 44 Service Date: 01/25/20 191 Inpatient PT HPI Date of Service 01/25/20 Time In: 1130 Time Out: 1137 Total Treatment Time (Mins) 7 Room Number 621 Visit Reason LUMBAR STENOSIS Referral Date 01/24/20 Tx Diagnosis: Eval for mobility Insurance Name MEDICARE Hospital Course Pt is a 74 year old male admitted for Discectomy, decompression, and fusion L2-3: 2019. Orders: Brace when out of room, logroll, encourage ambulation/calf/ankle ex, up ad janine /c assist. Pt encountered ambulating in hallway, pleasant and cooperative, familiar /c protocol and wanting to go home. Past Medical/Social History Living Arrangements Home Lives With Spouse Steps to Enter House 0 Stairs Inside House 0 Adaptive Equipment Single Point Cane, Wheeled Walker ADL Equipment High Toilet, Elev. Toilet Seat no Arms, Grab Bars, Long Shoe Horn, Ruling Machine Feeder, Sock Aid Bedroom Location 1st Floor Bathroom Location 1st Floor Shower Walk in Tasks Prior to Admission mod I-I ADLs, IADLs, AND mobility. Denies need to use AD to ambulate or having falls. Works fulltime in [employer]. Objective Pain Comments Pt /s pain comment this session. Precautions Spinal, Logroll Equipment IV line, Brace Static Sitting Balance Within Functional Limits Dynamic Sitting Balance Within Functional Limits Static Standing Balance Within Functional Limits Dynamic Standing Balance Within Functional Limits Orientation Person, Place, Time, Situation Behavior Within Functional Limits Sensation Within Functional Limits Tone Within Functional Limits Endurance Fair Posture Within Functional Limits, Pt is 5'11 and 195# Wound/Skin Dressing /s strikethrough, no drain Coordination Coordination Within Functional Limits Fine Motor Coordination Within Functional Limits Gross Motor Coordination Within Functional Limits ROM RUE ROM: See OT evaluation LUE ROM: See OT evaluation RLE ROM: WITHIN FUNCTIONAL LIMITS LLE ROM: WITHIN FUNCTIONAL LIMITS Strength RUE Strength: See OT evaluation LUE Strength: See OT evaluation RLE Strength: WITHIN FUNCTIONAL LIMITS LLE Strength: WITHIN FUNCTIONAL LIMITS Outcome Measures AM-PAC Inpatient Mobility AM-PAC Inpatient Mobility Response Value Turn Back/Side While Flat WO Bedrails None 4 Move From Lying to Side of Bed WO Bedrails None 4 Move To/From Bed to Chair None 4 Stand Up From Chair Using Arms None 4 Hospital Room None 4 limb 3-5 Steps W Railing None 4 Total 24 CMS Disability (%) 0 Mobility Transfers Sit to Stand Modified Independent Stand to Sit Modified Independent Weight Bearing No restriction Comments Pt performing all mobility /s hands on assist this date. Moving with ease, no increased time needs. Familiar /c protocol, following precautions. Declines logroll trial, comfortable /c completion. Mobility Patient ambulated Independent With Assistive Device Wheeled walker > IV pole > Nothing For (Feet) 175' Comments Pt ambulating /c device progression as noted above throughout, no hands on assist. No LOB or gross gait deviations. Pt encountered multiple times over course of morning, up in hallway throughout day. Stairs Comments Pt declines as reports having no steps to perform at home. Treatment Additional Minutes of Tx Performed 0 Remained in Ambulating in hallway All Needs Within Reach Yes Past Medical/Social History Problem List Medical Problems BPH (benign prostatic hypertrophy) Chronic low back pain Lumbar disc disease Lumbar stenosis Overweight Pre-op evaluation Prostate ca Surgical Problems S/P lumbar fusion Assessment/Plan for Inpt PT Discharge Recommendations Home-No Home Health Care Topic #1 Rehab techniques Plan of care D/C rec Mobility Transfers Gait Safety Weight bearing Precautions Teaching Method: TEACHBACK Teaching Method: WRITTEN MATERIALS Outcome: VERBALIZED/ADEQ TEACHBACK Rehab Potential Good Treatment Tolerance Good Assessment Patient has no acute physical therapy needs at this time, DC from acute physical therapy. Performing all transfers, gait, and stair navigation at MOD I level or greater. Verbalizing understanding of HEP/Precautions. Patient Stated Goal: NA Frequency of Therapy: Eval only Patient Status DISCHARGED Eval Completed Yes Eval Complexity Low Treatment Performed No Electronically Signed eSign Date and Time Brady Rodriguez PT 01/25/201924 Normal [facility] Internal Medicine Consultati onon 01-24-2020 Internal Medicine Consultation [facility] Patient: DONALD WINN [address] [place] [address] MR#: [id number] CONSULTATION - Internal Medicine : 44 Service Date: 01/24/20 1308 See Addendum Robi 4d History of Present Illness Referring Physician Christopher Rowe MD Consulted Physician Denise Brady MD HPI Pt is a 74 yo CM with pmhx of prostate cancer treated w/ radiation who is POD0 L2-l4 decompression. Pt was examined in pACU. IM was consulted for medical management. Pt pain was moderately controlled. Intraop ebl was 50cc. Pt has no mehta and no drain. dressing intact, clean, dry and no discharge. Pt denies cp,sob, abd pain, nausea and vomitting. Pt neurovasc intact. Pt denies numbness and weakness in legs. Pt reports smoking, denies seizures and denies etoh. Medical/Surgical History Past Medical History Transfusion Status CONSERVATION Transfusion Reaction NOT APPLICABLE Family/Social History Social History Packs/Day LESS THAN 1/2 Allergies/Home Medications Allergies Coded Allergies: NO KNOWN ALLERGENS (01/21/15) Reconcile Medications Scheduled Medications Calcium Carbonate/Vitamin D3* (Oyster Shell Calcium/Vit D *) 600 MG TABLET 600 MG PO DAILY, Ref 0 (Reported) TAKES 2 CAPSULES Entered as Reported by LORELEI SEYMOUR on 01/21/15 0732 Last Action: Converted on 01/24/20 1312 by MARY WEEKS III Garlic 1 EACH CAPSULE 1 EACH PO DAILY, Ref 0 (Reported) NEXT DOSE TODAY Entered as Reported by LORELEI SEYMOUR on 01/21/15 0731 Last Action: Held on 01/24/20 1314 by MARY WEEKS III Caldwell Oil/[place]-3 Fatty Acids (Caldwell Oil 1,000 MG Softgel) 1 EACH CAPSULE 1 EACH PO DAILY, Ref 0 (Reported) NEXT DOSE TODAY Entered as Reported by LORELEI SEYMOUR on 01/21/15 0733 Last Action: Converted on 01/24/20 1314 by MARY WEEKS III Tamsulosin HCl * (Flomax *) 0.4 MG CAP 0.4 MG PO DAILY, Ref 0 (Reported) NEXT DOSE TOMORROW Entered as Reported by LORELEI SEYMOUR on 01/21/1531 Last Taken: 01/23/20 1800 Last Action: Continued on 01/24/20 1312 by MARY WEEKS III Zinc Sulfate * 220 MG CAPSULE 220 MG PO DAILY, Ref 0 (Reported) NEXT DOSE TODAY Entered as Reported by LORELEI SEYMOUR on 01/21/15 0731 Last Action: Continued on 01/24/20 1312 by MARY WEEKS III Scheduled PRN Medications HYDROcodone Bit 5mg AND Acetaminophen 325mg * (NORCO 5mg/325mg *) 1 EACH TABLET 1 EACH PO Q4PRN PRN Pain, Ref 0 (Reported) Entered as Reported by DAGMAR CHARLTON on 01/18/20 1040 Last Taken: 01/23/201999 Last Action: Held on 01/24/20 131 by MARY WEEKS III Discontinued Medications HYDROmorphone HCl * (Dilaudid 2mg Tablet*) 2 MG TABLET 1 MG PO Q4PRN PRN surgical pain, Ref 0 (Reported) NEXT DOSE AFTER 4:34 PM TODAY Discontinued reason: Completed Regimen Last Action: Discontinued on 01/18/20 1037 by DAGMAR CHARLTON Leuprolide Acetate (Eligard) 30 MG DISP.SYRIN 22.5 MG SQ EVERY 3 MONTHS, Ref 0 ( Reported) Discontinued reason: Completed Regimen Last Action: Discontinued on 01/18/20 1037 by DAGMAR CHARLTON Red Yeast Rice 600 MG CAPSULE 600 MG PO DAILY, Ref 0 (Reported) NEXT DOSE TODAY Discontinued reason: Completed Regimen Last Action: Discontinued on 01/18/20 1037 by DAGMAR CHARLTON Review of Systems Review of Systems Constitutional Denies: Fever, Fatigue, Chills. Cardiovascular Denies: Chest Pain, Pain on Exertion. Pulmonary Denies: Pleuritic Chest Pain, Dyspnea. GI Denies: Abdominal Pain, Nausea, Vomiting. Musculoskeletal Reports: Back Pain. Neuro Denies: Headache, Syncope, Dizziness, Seizures. Physical Exam Vital Signs Vital Signs Vital Signs Verdana 4d Result Date Time Pulse Ox 96 01/23 745 B/P 116/66 01/23 745 Temp 36.3 01/23 745 Pulse 60 01/23 0745 Resp 18 01/23 745 Appearance Appearance Appears well, Awake, Alert, No distress Cm: 180.34 Wt-K.600 BMI 27.6 Patient is Overweight Pain Scale 7 HEENT HEENT Eyes normal inspection, Hearing grossly normal Respiratory Respiratory Lungs sound clear, Respirations non-labored, Symmetrical expansion CVS Cardiovascular Rhythm regular, Normal heart sounds Pulses 2+ L Dorsalis Pedis, 2+ R Dorsalis Pedis Neuro * Document results of Cranial Nerve Asmt for all pts. Neurological Alert, Oriented x 3, No motor deficit, No sensory deficit Mental Status Oriented x 3 Motor Exam L lower extrmty Normal power, L upper extrmty Normal power, R lower extrmty Normal power, R upper extrmty Normal power Sensory Exam L lower extrmty Normal light touch, L upper extrmty Normal light touch, R lower extrmty Normal light touch, R upper extrmty Normal light touch Cranial Nerves Normal II, Normal III, Normal IV, Normal V, Normal , Normal VII, Normal VIII, Normal IX, Normal X, Normal XI, Normal XII Abdomen/Pelvis Abdomen Bowel sounds present, Abdomen soft, Non-tender, mildly distended Extremity Extremity Normal appearance, Full ROM, Sensation intact, Motor Intact, No vascular compromise, No tenderness, No pedal edema Assessment/Plan Assessment and Plan #POD0 L2-L3 discectomy #post op HTN * Pt pain well controlled. * Pt denies cp, sob, abd pain, nausea and vomitting * intraop ebl 50cc. * exam: neurovasc intact, dressing clean, dry and no discharge. no mehta and no post op drain * plan: * cbc and cmp * monitor * pain management and anticoagulation per ortho * vasotec PRN #Acute blood loss anemia * intraop ebl 50cc * plan: * h AND H * monitor #hx of prostate cancer #possible urinary retentions * plan: * resume flomax * resume salmon oil #smoking sensation * pt admits to smoking * plan: * nicotine patch and gum ADDENDUM: DENISE BRADY on 01/25/20 at 1150 *Attending Attestation Attending Attestation Attending Attestation i saw pt and reviwed agree with care All pertinent elements of history and physical exam were confirmed by me. Agree with above documentation. The [resident's, PA's, DETECTIVE's] assessment and plan reflect my input. Discussed with documenting provider and patient. Plan is as outlined above. Electronically Signed eSign Date and Time Mary Weeks III, Res, Jayantilal MD 01/25/20 1150 Normal [facility] OPERATIVE REPORTon 0 OPERATIVE REPORT NAME: DONALD WINN MR#: [id number] SURGEON: Christopher Rowe MD DATE OF SURGERY: 01/24/2020 OPERATIVE REPORT This is the posterior surgery. PROCEDURES: 1. Posterolateral fusion at L2-3. 2. Lumbar laminectomy L2, right and left. 3. Placement of nonsegmental pedicle screw pretty fixation, L2-3. 4. Iliac crest bone graft. 5. Use of local autograft. 6. Use of allograft bone. 7. Use of operative microscope. PREOPERATIVE DIAGNOSES: 1. Lumbar spinal stenosis. 2. 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 POSTOPERATIVE DIAGNOSES: 1. Lumbar spinal stenosis. 2. 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 ANESTHESIA: General. INSTRUMENT COUNT: Sponge and needle counts correct. COMPLICATIONS: None. ESTIMATED BLOOD LOSS: Minimal. INSTRUMENTATION: [place]. DESCRIPTION OF PROCEDURE: Patient had undergone anterior surgery and now was positioned prone for posterior surgery. The patient's lower back had been prepped and draped in the usual sterile manner. Fluoroscopy was brought in. Fluoroscopy assisted with skin incision placement. Initial incision was made on the left side in posterolateral manner with #15 knife blade. Fascia was divided with electrocautery. Jamshidi needle and subsequent K-wire were placed into pedicles at L2 and L3 under fluoroscopic guidance. We then went over to the right side. Right-sided posterolateral incision was made with a #15 knife blade. Fascia was divided with electrocautery. Jamshidi needle and subsequent K-wire placed in the pedicles at L2 and L3 under fluoroscopic guidance. We then went over to the left side and a lower midline fascial [facility] PT NAME: DONALD WINN MR#: [id number] [address] [place] [address] ACCT: [id number] : 44 OPERATIVE REPORT incision was made with electrocautery. Tubular retractor was placed following serial dilation and docked onto the lamina of L2. Tubular retractor used was a 22 mm x 70 mm retractor. This retractor was then connected to the flexible retractor arm. Microscope was brought in for direct visualization. Residual soft tissue was carefully removed with electrocautery. The inner location was checked once again with fluoroscopic imaging. Laminectomy, facetectomy and foraminotomy were begun with the fluted bur and completed with the dragan bur, straight and angled curettes and Kerrison rongeurs. The tubular retractor was wanded medially and the patient rotated to the right so that we could decompress on the right side as well with laminectomy, facetectomy, and foraminotomy. Hypertrophic ligamentum flavum was carefully removed. Decompression was completed with use of straight and angled curettes and Kerrison rongeurs of various sizes. Following decompression, blockade was placed over the exposed dura and nerve roots to prevent future epidural fibrosis. Tubular retractor was removed. Decortication of the posterolateral surfaces at L2 and L3 was next performed. Bone graft was placed over these decorticated surfaces for posterolateral fusion bilaterally at L2 and L3. Cannulated polyaxial pedicle screws were then placed on each respective K- wire. The K-wires were removed and the pedicle screws were fully seated. All pedicle screws were stimulated with EMG technique and stimulated above threshold values. Top-loading rods and set screws were then placed. With final set screw tightening, the extension sleeves were removed. Final AP and lateral fluoroscopic images revealed well-placed construct. We then began closure of the incisions. This was done in the usual manner. Dry sterile dressings were then applied. CHRISTOPHER ROWE MD [facility] [place][id number] E/S: Christopher Rowe MD 01/29/20 1037 Electronically Signed [facility] PT NAME: DONALD WINN MR#: [id number] [address] [place] [address] ACCT: [id number] : 43 OPERATIVE REPORT Normal [facility] OPERATIVE REPORT NAME: DONALD WINN MR#: [id number] SURGEON: Christopher Rowe MD DATE OF SURGERY: 01/24/2020 OPERATIVE REPORT This is the anterior surgery. PROCEDURES: 1. Anterior lumbar interbody fusion, L2-3. 2. Placement of anterior interbody cages to lumbar interspace, L2-3. 3. Bone marrow aspiration, L3 vertebral body. 4. Use of allograft bone. PREOPERATIVE DIAGNOSES: 1. Lumbar spinal stenosis. 2. Adjacent level disease, status post previous L3-L5 fusion. POSTOPERATIVE DIAGNOSES: 1. Lumbar spinal stenosis. 2. Adjacent level disease, status post previous L3-L5 fusion. ANESTHESIA: General. COUNTS: Sponge and needle counts correct. COMPLICATIONS: None. ESTIMATED BLOOD LOSS: Minimal. INSTRUMENTATION: Spineology. Integrity. DESCRIPTION OF PROCEDURE: The patient was brought into the operating room. He successfully underwent endotracheal intubation and administration of general anesthesia. The patient was then carefully positioned on the radiolucent table. The area of the patient's lower back and left flank area were prepped and draped in the usual sterile manner. Fluoroscopy was brought in. Fluoroscopy assisted with skin incision placement. Skin incision was made in the left lateral flank area and in line with the L2-3 disk space. Incision was made with a #15 knife blade. Fascia was divided with electrocautery. Blunt dissection was performed. The area at the L2-3 disk space was confirmed fluoroscopically. Jamshidi was then placed into the L3 vertebral body. Bone marrow was aspirated. This bone marrow was then concentrated down, mixed with allograft bone for the interbody fusion. We then approached the L2-3 disk space. The safe zone of entry was determined using the ProMap probe and fluoroscopic guidance. Once the safe zone of entry was determined, a guidepin [facility] PT NAME: DONALD WINN MR#: [id number] [address] [place] [address] ACCT: [id number] : 43 OPERATIVE REPORT was placed such that the tip of the guidepin was within the center of the disk space on both AP and lateral fluoroscopic images. We then commenced with disk dilation under continuous EMG neuromonitoring. We then placed the working port. Anterior diskectomy with interbody fusion was commenced using the disk cutters, end-plate alexandra, and disk extraction instrumentation. The adequacy of the disk and endplate preparation was verified using a contrast-filled balloon catheter. About 80% of the disk space was prepared. We then placed bone graft within the anterior disk space. This was followed by a mesh cage and finally expandable titanium PEEK cage. This allowed for a significant disk space height buddhist and indirect neural decompression. Post expansion, additional bone graft was placed. We then placed a blockade over the anterior lumbar spine to prevent future fibrosis. The working port was removed. We then obtained AP and lateral fluoroscopic images. Well-placed construct was noted. We then commenced with closure of the incision. This was done in the usual manner. Dry sterile dressing was then applied. CHRISTOPHER ROWE MD MRG/MODL/[id number] E/S: Christopher Rowe MD 01/29/20 1037 Electronically Signed [facility] PT NAME: DONALD WINN MR#: [id number] [address] [place] [address] ACCT: [id number] : 43 OPERATIVE REPORT Normal [facility] Primary Residenton 0 Primary Resident [facility] Pt Name: DONALD WINN MR#: [id number] [address] [place] [address] ACCT: [id number] [place] [address] : 43 Service Date: 01/24/20 1308 Primary Resident/Call Primary Resident: brigitte weeks iii After Hours Call: [phone] Red Team Electronically Signed eSign Date and Time Weeks III,Mary Res 01/24/20 1310 Normal [facility] TSon 01-24-2020 ABO and Rh group Nom (Bld) O NEGATIVE Normal [facility] Comment on above: Order Comment: CONSE RVATIONCBN: NOCampus: MAINTransfusion Status: CONSERVATIONBlood Bank service requested: TYPE AND SCREENComments To Phleb: DONE IN HOLDING ROOM Performed By: #### B 100.0200 ####Test performed at: [place] [id number] CORONAVIRUSon 01-22-2020 CORONAVIRUS Negative results do not preclude SARS-CoV-2 infection and should not be used as the sole basis for patient management decisions. Negative results must be combined with clinical observations, patient history, and epidemiological information. False-negative results may occur if the viruses are present at a level that is below the analytical sensitivity of the assay or if the virus has genomic mutations, insertions, deletions, or rearrangements or if performed very early in the course of illness. Results may be affected by the quality of the sample collected. Simplexa COVID-19 Direct is only for use under the Food and Drug Administration's Emergency Use Authorization. The Simplexa COVID-19 Direct Letter of Authorization, along with the authorized Fact Sheet for Healthcare Providers, the authorized Fact Sheet for Patients, and authorized labeling are available on the FDA website: https://www.fda.gov/Medi calDevices/Safety/ EmergencySituations/ucm1 28072.htm COVID-19 Negative for COVID-19 (SARS-CoV-2 RNA) Normal [facility] Comment on above: Order Comment: Commpatricia nt: SURG 01/23 COVID Testing: PRE-OP/PROCEDURE Performed By: #### M 400.74318 #### Test performed at: [place] [id number] GLYCO HEMOon 01-19-2020 HbA1c (Bld) [Mass fraction] 5.6 % Normal [facility] Comment on above: Result Comment: Chetna bajwa Diagnosis HbA1c (%) --------- Diabetic > 6.4 Prediabetes 5.7-6.4 Normal < 5.7 Performed By: #### L 500.16359 #### Test performed at: [address] [address] CBC W/DIFFon 01-18-2020 BASO ABS 0.1 K/uL Normal 0.0-0.2 [facility] Comment on above: Performed By: #### L 200.19397 #### Test performed at: [address] [address] Basophils/100 WBC (Bld) 0.8 % Normal [facility] Comment on above: Performed By: #### L 200.19823 #### Test performed at: [address] [address] EOS ABS 0.2 K/uL Normal 0.0-0.5 [facility] Comment on above: Performed By: #### L 200.40204 #### Test performed at: [address] [address] Eosinophils/100 WBC (Bld) 3.1 % Normal [facility] Comment on above: Performed By: #### L 200.15069 #### Test performed at: [address] [address] Erythrocyte distribution width (RBC) [Ratio] 13.2 % Normal 11.5-14.5 [facility] Comment on above: Performed By: #### L 200.40488 #### Test performed at: [address] [address] Hematocrit (Bld) [Volume fraction] 37.7 % Low 39.0-55.0 [facility] Comment on above: Performed By: #### L 200.00069 #### Test performed at: [address] [address] Hemoglobin (Bld) [Mass/Vol] 12.6 g/dL Low 14.0-16.5 [facility] Comment on above: Performed By: #### L 200.91218 #### Test performed at: [address] [address] IG % 0.3 % Normal [facility] Comment on above: Performed By: #### L 200.99466 #### Test performed at: [address] [address] IG ABS 0.02 K/uL Normal 0-0.05 [facility] Comment on above: Performed By: #### L 200.79989 #### Test performed at: [address] [address] Lymphocytes (Bld) [#/Vol] 1.9 10*3/uL Normal 1.2-3.5 [facility] Comment on above: Performed By: #### L 200.06914 #### Test performed at: [place] [id number] Lymphocytes/100 WBC (Bld) 30.1 % Normal [facility] Comment on above: Performed By: #### L 200.43978 #### Test performed at: [place] [id number] MCH (RBC) [Entitic mass] 32.6 pg Normal 25.4-34.6 [facility] Comment on above: Performed By: #### L 200.03691 #### Test performed at: [place] [id number] MCHC (RBC) [Mass/Vol] 33.4 g/dL Normal 31.5-36.5 [facility] Comment on above: Performed By: #### L 200.25500 #### Test performed at: [address] [address] MCV (RBC) [Entitic vol] 97.4 fL Normal 80.0-100.0 [facility] Comment on above: Performed By: #### L 200.32179 #### Test performed at: [address] [address] MONO ABS 0.7 K/uL Normal 0.0-1.0 [facility] Comment on above: Performed By: #### L 200.67496 #### Test performed at: [address] [address] Monocytes/100 WBC (Bld) 10.8 % Normal [facility] Comment on above: Performed By: #### L 200.29605 #### Test performed at: [address] [address] NEUTROPHIL ABS 3.4 K/uL Normal 1.4-6.6 [facility] Comment on above: Performed By: #### L 200.54631 #### Test performed at: [address] [address] Neutrophils/100 WBC (Bld) 54.9 % Normal [facility] Comment on above: Performed By: #### L 200.36038 #### Test performed at: [address] [address] NRBC # 0.000 K/uL Normal 0-0.012 [facility] Comment on above: Performed By: #### L 200.71079 #### Test performed at: [address] [address] NRBC % 0.0 /100 WBC Normal 0-0.2 [facility] Comment on above: Performed By: #### L 200.52862 #### Test performed at: [address] [address] Platelet mean volume (Bld) [Entitic vol] 9.3 fL Normal 8.7-12.4 [facility] Comment on above: Performed By: #### L 200.46450 #### Test performed at: [address] [address] Platelets (Bld) [#/Vol] 323 10*3/uL Normal 140-440 [facility] Comment on above: Performed By: #### L 200.75487 #### Test performed at: [address], [place] [address] RBC (Bld) [#/Vol] 3.87 10*6/uL Normal 3.5-5.5 [facility] Comment on above: Performed By: #### L 200.92153 #### Test performed at: [address] [address] WBC (Bld) [#/Vol] 6.2 10*3/uL Normal 3.9-11.0 [facility] Comment on above: Performed By: #### L 200.62617 #### Test performed at: [address] [address] CHEST PA/AP & LATERAL OR 2 V WSon 01-18-2020 CHEST PA/AP & LATERAL OR 2 VWS STUDY: CHEST PA/AP LATERAL OR 2 VWS; 01/18/2020 11:38 am INDICATION: Pre op, decrease breath sound . COMPARISON: None. ACCESSION NUMBER(S): [id number] ORDERING CLINICIAN: Sonny Mora FINDINGS: Spinal stimulator and bilateral shoulder arthroplasties are noted. Calcified granuloma left lung base and right upper lobe. Otherwise the lungs appear clear. The lungs are hyperinflated with flattening of the hemidiaphragms. No apparent pleural effusion. Normal heart size, mediastinum, shawnee, and pulmonary vasculature. Aortic atherosclerosis. Thoracic degenerative changes. IMPRESSION: No active disease in the chest. Hyperinflation of the lungs which could reflect changes of COPD. Normal [facility] COMP META PANELon 01-18-2020 Albumin [Mass/Vol] 3.4 g/dL Normal 3.4-5.0 [facility] Comment on above: Performed By: #### L 500.88090, L500.52443 #### Test performed at: [address] [address] ALK PHOS TOTAL 81 U/L Normal 45-117 [facility] Comment on above: Performed By: #### L 500.29576, L500.34370 #### Test performed at: [address] [address] ALT [Catalytic activity/Vol] 20 U/L Normal 13-61 [facility] Comment on above: Performed By: #### L 500.12142, L500.63615 #### Test performed at: [address] [address] AST [Catalytic activity/Vol] 15 U/L Normal 15-37 [facility] Comment on above: Performed By: #### L 500.94723, L500.73906 #### Test performed at: [address] [address] BILI TOTAL 0.4 mg/dL Normal 0.2-1.0 [facility] Comment on above: Performed By: #### L 500.27194, L500.23986 #### Test performed at: [address] [address] Calcium [Mass/Vol] 9.7 mg/dL Normal 8.5-10.1 [facility] Comment on above: Performed By: #### L 500.73754, L500.14727 #### Test performed at: [address] [address] Chloride [Moles/Vol] 107 mmol/L Normal 98-107 [facility] Comment on above: Performed By: #### L 500.89667, L500.01287 #### Test performed at: [address] [address] CO2 [Moles/Vol] 29 mmol/L Normal 21-32 [facility] Comment on above: Performed By: #### L 500.38470, L500.10324 #### Test performed at: [address] [address] Creatinine [Mass/Vol] 0.754 mg/dL Normal 0.700-1.300 [facility] Comment on above: Performed By: #### L 500.66693, L500.44968 #### Test performed at: [address] [address] Glucose [Mass/Vol] 96 mg/dL Normal 70-99 [facility] Comment on above: Result Comment: Fast ing GLUCOSE reference range has been updated per (ADA) [place] [employer]'s recommendation. 09/20/2018 Performed By: #### L 500.12737, L500.63757 #### Test performed at: [address] [address] Potassium [Moles/Vol] 4.5 mmol/L Normal 3.5-5.1 [facility] Comment on above: Performed By: #### L 500.62727, L500.31018 #### Test performed at: [address] [address] Protein [Mass/Vol] 6.8 g/dL Normal 6.4-8.2 [facility] Comment on above: Performed By: #### L 500.02379, L500.94919 #### Test performed at: [address] [address] Sodium [Moles/Vol] 140 mmol/L Normal 136-145 [facility] Comment on above: Performed By: #### L 500.03006, L500.26999 #### Test performed at: [address] [address] Urea nitrogen [Mass/Vol] 16 mg/dL Normal 7-18 [facility] Comment on above: Performed By: #### L 500.71901, L500.37288 #### Test performed at: [address] [address] GFR ESTIMATEon 01-18-2020 IF AMER > 60 Normal > 60 [facility] Comment on above: Result Comment: eGFR (Estimated GFR) Units of measure:mL/min/1.73 meters sq. *CALCULATION REVISED 04/16/2015;IDMS-traceable MDRD equation eGFR is derived from the reexpressed MDRD Study equation using the following parameters: serum creatinine, age, gender and race. An eGFR<60 mL/min/1.73m2 for >3 months is consistent with chronic kidney disease. Refer to KDOQI guidelines for clinical interpretation. Performed By: #### L 500.30902, L500.95782 #### Test performed at: [place] [address] IF non-AFR AMER > 60 Normal > 60 [facility] Comment on above: Performed By: #### L 500.51439, L500.74383 #### Test performed at: [place] [address] H & Catarino 01-18-2020 H & P [facility] Patient: DONALD WINN [address] [place] [address] MR#: [id number] HISTORY and PHYSICAL : Service Date: 01/18/20 1053 HPI/Past Med Surg Hx/Fam Soc HPI Primary Care Physician [phone] Information Source PATIENT Language Barrier No Chief Complaint Pre op evaluation History of Present Illness This is A 74 year-old male patient with a history of lumbar stenosis scheduled for discectomy, decompression, fusion L2-3. Seen today for preoperative assessment. The patient complaining of worsening lower back pain ache in nature and radiates to the left leg. The past medical history significant for Prostate cancer s/p radiation, and current smoker. He is physically active, able to achieve at least four METs of activity without symptoms. He denied any chest pain, SOB, orthopnea, PNDs, and lower ext swelling. Denied snoring loudly. Denied feeling tired, fatigued, or sleepy during the daytime. Denied any personal or family history of anesthetic problems following the previous surgery. PMH/PSH Past Medical History Reports Cancer, Denies Pulmonary Disease, Denies Emphysema, Denies Asthma, Denies Heart Disease, Denies Hx CHF, Denies Hypertension, Denies Kidney Disease, Denies Immunocompromised, Denies GI Problems, Denies CVA/TIA, Denies Seizures, Denies Psych Problems, Denies Hepatitis, Denies Arthritis Diabetes NO Surgical History Denies Pacemaker PSH Other/Comment Lumbar fusion multiple, Appendectomy Transfusion Status CONSERVATION Transfusion Reaction NOT APPLICABLE Family/Social Smoking Status CURRENT SOME DAY SMOKER Tobacco Use CIGARETTES Packs/Day LESS THAN 1/2 Alcohol Use No Drug Use No Advance Directives Patient has Advance Directives YES Review of Systems Review of Systems General (Constitutional) Denies: Fever, Chills, Weakness, Nausea. Existing infection before surg No Eyes Reports Vision Problems, Reports Wears Glasses HEENT Reports: Dental problems, Wears dentures, Hearing loss. Denies: Sore throat, Nasal congestion. Pulmonary Denies: Shortness of breath, Dyspnea on exertion, Asthma, Wheezing, Cough, Sleep apnea, Uses CPAP, Uses BIPAP. Cardiac Denies: Chest pain, Pain on exertion, History of NE, Palpitation, Syncope, Murmur, Leg swelling, History of Cardiac Stents. Gastrointestinal Denies: No Issues Noted, Nausea, Vomiting, Diarrhea, Constipation, Hx Gastric bypass surgery, Abdominal Pain, Melena/Rectal Bleeding, Heartburn. Urologic Denies: Dysuria, Polyuria, Hematuria, Hx Kidney stones, Nocturia, Urinary Frequency. Musculoskeletal Denies: Arthralgias, Back pain. Endocrine Denies: No Issues Noted, Diabetes, Thyroid disease, Elevated cholesterol. Hematologic Denies: No Issues Noted, Hx Blood clot in legs, Hx Blood clot in lungs, Easy bleeding/ bruising, Hx of Anemia. Skin NEGATIVE: No Issues Noted, Rashes, Bruising, Other. Physical Exam Vital Signs Vital Signs Vital Signs Verdana 4d Result Date Time Pulse Ox 97 01/17 1042 B/P 121/73 01/17 104 Temp 37.0 01/17 1042 Pulse 58 01/17 1042 Resp 17 01/17 1042 Appearance Appearance Appears well, Awake, Alert, No distress Neck Neck Normal inspection, No JVD, Supple, Full range of motion HEENT HEENT Head atraumatic, Eyes normal inspection, PERRLA, decrease hearing Mallampati Classification NA Respiratory Respiratory Lungs sound clear, Respirations non-labored, Symmetrical expansion Lung Sounds by Lobe L LOWER LOBE Diminished, R LOWER LOBE Diminished CVS Cardiovascular Rate WNL, Rhythm regular, Normal heart sounds, Pulses full, equal Neuro Neurological Alert, Oriented x 3, No motor deficit, No sensory deficit Abdomen/Pelvis Abdomen Bowel sounds present, Abdomen soft, Non-tender, No distension, ventral hernia Extremity Extremity Normal appearance, Full ROM, Sensation intact, Motor Intact, No vascular compromise, Tendon function NML, No tenderness, No pedal edema, Symmetrical, Lt leg scar from old truma Skin Skin Color normal, Skin warm, dry Allergies/Home Medications Allergies Coded Allergies: NO KNOWN ALLERGENS (01/21/15) Reconcile Medications Scheduled Medications Calcium Carbonate/Vitamin D3* (Oyster Shell Calcium/Vit D *) 600 MG TABLET 600 MG PO DAILY, Ref 0 (Reported) TAKES 2 CAPSULES Entered as Reported by LORELEI SEYMOUR on 01/21/1532 Last Action: Reviewed on 01/18/20 1037 by DAGMAR CHARLTON Garlic 1 EACH CAPSULE 1 EACH PO DAILY, Ref 0 (Reported) NEXT DOSE TODAY Entered as Reported by LORELEI SEYMOUR on 01/21/15730 Last Action: Reviewed on 01/18/20 1037 by DAGMAR CHARLTON Caldwell Oil/[place]-3 Fatty Acids (Caldwell Oil 1,000 MG Softgel) 1 EACH CAPSULE 1 EACH PO DAILY, Ref 0 (Reported) NEXT DOSE TODAY Entered as Reported by LORELEI SEYMOUR on 01/21/15732 Last Action: Reviewed on 01/18/20 1037 by DAGMAR CHARLTON Tamsulosin HCl * (Flomax *) 0.4 MG CAP 0.4 MG PO DAILY, Ref 0 (Reported) NEXT DOSE TOMORROW Entered as Reported by LORELEI SEYMOUR on 01/21/15730 Last Action: Reviewed on 01/18/20 1036 by DAGMAR CHARLTON Zinc Sulfate * 220 MG CAPSULE 220 MG PO DAILY, Ref 0 (Reported) NEXT DOSE TODAY Entered as Reported by LORELEI SEYMOUR on 01/21/15730 Last Action: Reviewed on 01/18/20 1037 by DAGMAR CHARLTON Scheduled PRN Medications HYDROcodone Bit 5mg AND Acetaminophen 325mg * (NORCO 5mg/325mg *) 1 EACH TABLET 1 EACH PO Q4PRN PRN Pain, Ref 0 (Reported) Entered as Reported by DAGMAR CHARLTON on 01/18/20 1040 Last Action: Reviewed on 01/18/20 1040 by DAGMAR CHARLTON Discontinued Medications HYDROmorphone HCl * (Dilaudid 2mg Tablet*) 2 MG TABLET 1 MG PO Q4PRN PRN surgical pain, Ref 0 (Reported) NEXT DOSE AFTER 4:34 PM TODAY Discontinued reason: Completed Regimen Last Action: Discontinued on 01/18/20 1037 by DAGMAR CHARLTON Leuprolide Acetate (Eligard) 30 MG DISP.SYRIN 22.5 MG SQ EVERY 3 MONTHS, Ref 0 ( Reported) Discontinued reason: Completed Regimen Last Action: Discontinued on 01/18/20 1037 by DAGMAR CHARLTON Red Yeast Rice 600 MG CAPSULE 600 MG PO DAILY, Ref 0 (Reported) NEXT DOSE TODAY Discontinued reason: Completed Regimen Last Action: Discontinued on 01/18/20 1037 by DAGMAR CHARLTON Diagnostics/Assessment AND Plan Assessment and Plan Assesment and Plan 1-Lumbar stenosis scheduled for discectomy, decompression, fusion L2-3. * Patients assessed to be low risk for major cardiac events * ASA II * CBC and CMP * A1C * COVID-19 * ECG 2- Hx of Prostate cancer * S/p radiation therapy * On Flomax 3- Smoker: * Encouraged to quit immediately preoperatively 4- The risk for SILVINA: * Score 2 in the STOP-BANG questionnaire Problem List Medical Problems BPH (benign prostatic hypertrophy) Chronic low back pain Lumbar disc disease Lumbar stenosis Overweight Pre-op evaluation Prostate ca Code Status FULL CODE ASA Classification Mild Systemic Disease Electronically Signed eSign Date and Time Sonny Mora MD 01/18/20 1529 Normal [facility] TSPATon 01-18-2020 ABO and Rh group Nom (Bld) O NEGATIVE Normal [facility] Comment on above: Order Comment: Trans fusion Status: CONSERVATION Blood Bank service requested: TYPE AND SCREEN Performed By: #### B 100.0201 #### Test performed at: [place] [id number] [address] [address] PROGRESSon 09-23-2017 PROGRESS HNO ID: [id number]: Saturnino Martinez: (none)Author Type: PsychologistType: Progress NotesFiled: 09/23/2017 9:34 AMNote Text:[facility] HealthProgress NoteDgermania Ernst09/23/[id number]: Saturnino Quinn PHDCPT Code: [id number] Psychiatric diagnostic evaluationTime: Approximately 50 minutes was spent in therapy.Parties Present: PatientPatient Presentation/Concerns: INITIAL VISIT re spinal cord stimulatorI have seen Mr. Murillo today regarding a Spinal Cord Stimulator. Alberta had back problems for 10 years. He has had 3 surgeries, PhysicalTherapy, medications, and shots. Currently, his chronic pain issufficiently compromising to his life activities that he is interested indoing something to take the edge off of the pain. He has a good supportsystem, and is well aware of the potential consequences of this procedure. In my professional opinion, he is a good candidate for this procedure.He grew up in [place] in the middle of 6 brothers and 3 sisters, and briefly started an [employer] in [facility]... Eric has 6 grown children, stays as active as he can, and still can playping pongMental Status:Mood: variableAffect: mood-congruentThoughts/A ssociations:goal directedSuicidal/Homicid al Ideation: None expressed or evidencedOther Observations: NoneTherapy FocusSelf-care and Coping with chronic illnessMEDICATIONS:Per medical record:No current outpatient prescriptions on file.No current facility-administered medications for this visit.Psychiatric Medication Issues: see med recordDIAGNOSIS:[place]h I:Chronic PainAxis II: deferredAxis III: see med recordAxis IV: painAxis V: 55Treatment Modality/Interventions:C ognitive BehavioralReassurance/Hooker pportiveTREATMENT ASSESSMENT/PROGRESS:. Progressing satisfactorily.TREATMENT PLAN/GOALS: Continue in therapy focusing on self-care andaffect management.Next appointment: None scheduled. Pt wiill call if issues arise.Saturnino Quinn, PHD Normal [facility] Protein mass conc HNO ID: [id number] Author: Saturnino Quinn Service: (none) Author Type: Psychologist Type: Progress Notes Filed: 09/23/2017 9:34 AM Note Text: [facility] Progress Note Donald [place] 09/23/2017 [id number] Provider: Saturnino Quinn, PHD CPT Code: 02077 Psychiatric diagnostic evaluation Time: Approximately 50 minutes was spent in therapy. Parties Present: Patient Patient Presentation/Concerns: INITIAL VISIT re spinal cord stimulator I have seen Mr. Murillo today regarding a Spinal Cord Stimulator. He has had back problems for 10 years. He has had 3 surgeries, Physical Therapy, medications, and shots. Currently, his chronic pain is sufficiently compromising to his life activities that he is interested in doing something to take the edge off of the pain. He has a good support system, and is well aware of the potential consequences of this procedure. In my professional opinion, he is a good candidate for this procedure. He grew up in [place] in the middle of 6 brothers and 3 sisters, and briefly started an [employer] in [facility]... He now has 6 grown children, stays as active as he can, and still can play [employer] Mental Status: Mood: variable Affect: mood-congruent Thoughts/Associations:go al directed Suicidal/Homicidal Ideation: None expressed or evidenced Other Observations: None Therapy Focus Self-care and Coping with chronic illness MEDICATIONS: Per medical record: No current outpatient prescriptions on file. No current facility-administered medications for this visit. Psychiatric Medication Issues: see med record DIAGNOSIS: Walsh I: Chronic Pain Walsh II: deferred Walsh III: see med record Walsh IV: pain Walsh V: 54 Treatment Modality/Interventions: Cognitive Behavioral Reassurance/Supportive TREATMENT ASSESSMENT/PROGRESS: . Progressing satisfactorily. TREATMENT PLAN/GOALS: Continue in therapy focusing on self-care and affect management. Next appointment: None scheduled. Pt wiill call if issues arise. Saturnino Quinn, PHD Normal [facility] SURGICAL PATHOLOGY, KUN Pittman 05-16-2012 [facility] SURGICAL PATHOLOGY, [facility] Zain 06-15-2008 [facility] Vital Signs Date Time Vital Sign Value Performing Clinician Faci rach 04-06-2022 09:05-0400 Body height 180.3 cm May Mcnair MD Work Phone: [facility] 04-06-2022 09:05-0400 Body weight 89.36 kg May Mcnair MD Work Phone: [facility] 04-06-2022 09:05-0400 Diastolic blood pressure 82 mm[Hg] May Mcnair MD Work Phone: [facility] 04-06-2022 09:05-0400 Heart rate 67 /min May Mcnair MD Work Phone: [facility] 04-06-2022 09:05-0400 Respiratory rate 16 /min May Mcnair MD Work Phone: [facility] 04-06-2022 09:05-0400 SaO2% (BldA) [Mass fraction] 95 % May Mcnair MD Work Phone: [facility] 04-06-2022 09:05-0400 Systolic blood pressure 150 mm[Hg] May Mcnair MD Work Phone: [facility] 10-06-2021 09:01-0400 Body weight 85.73 kg [facility] 10-06-2021 09:01-0400 Diastolic blood pressure 76 mm[Hg] [facility] 10-06-2021 09:01-0400 Heart rate 66 /min [facility] 10-06-2021 09:01-0400 Respiratory rate 17 /min [facility] 10-06-2021 09:01-0400 Systolic blood pressure 122 mm[Hg] [facility] Encounters Encounter Date Encounter Type Care Provider Facility Start: 12-18-2024 End: 12-18-[address] Christopher Eng DO Work Phone: [facility] Work Phone: Start: 12-18-2024 End: 12-18-[address] Fariha Wu MD -Laboratory Work Phone: Start: 12-18-2024 End: 12-18-2024 ambulatory Fariha Wu Facility:[facility] Start: 10-23-2024 End: 10-23-[address] Christopher Eng DO -Ultrasound [facility] Work Phone: Start: 10-23-2024 End: 10-23-2024 ambulatory Christopher Eng Facility:[facility] Start: 10-16-2024 End: 10-16-[address] Sebas Sandoval MD -Laboratory Work Phone: Start: 10-16-2024 End: 10-16-2024 ambulatory Christopher Eng Facility:[facility] Start: 04-28-2024 End: 04-28-[address] [facility] Facility:[facility] Start: 04-07-2024 End: 04-07-2024 ambulatory Manolo Hannon Facility:[facility] Start: 02-29-2024 End: 02-29-[address] [facility] Facility:[facility] Start: 10-18-2023 End: 10-18-2023 ambulatory [facility] Work Phone: Start: 10-18-2023 End: 10-18-2023 Patient encounter procedure [facility] Work Phone: Start: 11-02-2022 End: 11-02-2022 ambulatory [facility] Work Phone: Start: 11-02-2022 End: 11-02-2022 Patient encounter procedure [facility] Start: 10-13-2022 End: 10-13-2022 ambulatory [facility] Work Phone: Start: 10-13-2022 End: 10-13-2022 Patient encounter procedure [facility] Start: 04-23-2022 End: 04-23-2022 ambulatory [facility] Work Phone: Start: 04-23-2022 End: 04-23-2022 [facility] encounter procedure [facility] Start: 04-06-2022 End: 04-06-2022 Patient encounter procedure May Mcnair MD Work Phone: [facility] Urology Comment on above: Prostate cancer (HCC ) (Primary Dx); Hypertrophy of prostate with urinary obstruction Start: 04-03-2022 Chart abstracting Historical Infor greg Mosqueda Start: 04-03-2022 Patient encounter procedure [facility] Start: 02-18-2022 End: 02-18-2022 ambulatory [facility] Work Phone: Start: 02-18-2022 End: 02-18-2022 Patient encounter procedure [facility] Start: 10-06-2021 End: 10-06-2021 Subsequent hospital visit by physician May Mcnair MD Work Phone: [facility] Comment on above: 9 MONTH REVIEW PSA Start: 07-04-2018 Patient encounter procedure Mila Mcnair Facility:[facility] Start: 01-03-2018 Patient encounter procedure Mila Mcnair Facility:[facility] Start: 09-23-2017 End: 09-24-2017 Ambulatory GENE A KAI [facility] Start: 05-16-2012 Documentation procedure [facility] Start: 05-16-2012 Historic EMR Steven Agrawal [facility] Start: 06-16-2008 Documentation procedure [facility] Start: 06-16-2008 Historic EMR Steven Agrawal [facility] Procedures Date Procedure Procedure Detail Performing Clinician Start: 12-18-2024 Methadone measurement, urine Dr. Christopher Claire DO Work Phone: Start: 10-23-2024 Methadone measurement, urine Dr. Christopher Claire DO Work Phone: Start: 10-23-[address] Christopher Eng DO Work Phone: Comment on above: Test Ordered: [id number] P37-Yjceeb+S C0Jwcitrubgtlm Screen, Urine Negative ng/mL UI Reference Range: Qzbhqf=378Xyedqibmhbl test includes Amphetamine and Methamphetamine.Barbiturates Negative ng/mL UI Reference Range: Quykfo=729Sbnyxgcuhmixqvm Negative ng/mL UI Reference Range: Qrgbre=785Xrklshx (Metab.), Urine Negative ng/mL UI Reference Range: Kvunjw=756Xlibylt Note: ng/mL UI See Final Results Reference Range: Youyzo=707Qwizsy test includes Codeine, Morphine, Hydromorphone, Hydrocodone.Opiates Positive [A ] UI Reference Range: Eigorl=509Jgtfjd test includes Codeine, Morphine, Hydromorphone, Hydrocodone.Codeine Negative UI Reference Range: Xzyyoi=848Bmyivevf Negative UI Reference Range: Zudfcc=002Slnnwglmdjnwi Positive [A ] UI Reference Range: .Hydromorphone Conf, MS, UR 235 ng/mL UI Reference Range: Svvqxi=549Ynjqhcrnaoa Positive [A ] UI Reference Range: .Hydrocodone Conf, MS, UR 1004 ng/mL UI Reference Range: Ckyrds=3970-Uqrfranmyqfjmx, Urine Negative ng/mL UI Reference Range: Cutoff=10Oxycodone/Oxymorphone, Urine Negative ng/mL UI Reference Range: Xxprpj=194Abqb includes Oxycodone and OxymorphonePCP, Urine Negative ng/mL UI Reference Range: Cutoff=25Methadone Screen, Urine Negative ng/mL UI Reference Range: Bghqde=543Celppwjabjdc, Urine Negative ng/mL UI Reference Range: Uaaebq=966Hwyzkrgp, Urine Negative ng/mL UI Reference Range: Cutoff=2.0Test includes Fentanyl and NorfentanylThis test was developed and its performance characteristicsdetermined by [employer]. It has not been cleared orapproved by the Food and Drug Administration.Tramadol Negative ng/mL UI Reference Range: Wuzwmn=825Dlotnijihucki, Urine Negative ng/mL UI Reference Range: Cutoff=10Creatinine, Urine 83.6 mg/dL UI Reference Range: 20.0-300.0pH, Urine 6.6 UI Reference Range: 4.5-8.9Performed at: [facility] [id number] [place], [place] [id number] Director: Óscar Mccann PhD, Phone: [phone] at: [address] [id number] Director: Wes Boss PhD, Phone: [phone] Start: 10-23-2024 X-ray of chest, PA and lateral views Dr. Christopher Eng DO Work Phone: Start: 10-23-2024 Complete ultrasound of kidneys and bladder Dr. Christopher Eng DO Work Phone: Start: 10-16-2024 Assay of prostate specific antigen total Dr. Christopher Eng DO Work Phone: Comment on above: This test was performed using the [employer] tPSA method. Measured values of a patient sample can vary depending on the testing procedure used. PSA values determined on patient samples by different testing procedures cannot be used interchangeably. If there is a change in PSA assays while monitoring therapy, sequential testing should be performed to confirm baseline values. Start: 01-24-2020 Antibody screen Comment on above: Order Comment: CONSERVATIONCBN: NOCampus : MAINTransfusion Status: CONSERVATIONBlood Bank service requested: TYPE AND SCREENComments To Phleb: DONE IN HOLDING ROOM Result Comment: TYPE AND SCREEN PERFORMED IN [facility] ON 01.18.2020. Performed By: #### B 100.0200 ####Test performed at: [place] [address] Start: 01-18-2020 Antibody screen Comment on above: Order Comment: Transfusion Status: CONSE RVATION Blood Bank service requested: TYPE AND SCREEN Performed By: #### B [id number] #### Test performed at: [place] [address] Start: 01-18-2020 Electrocardiogram Start: 05-16-2012 SURGICAL PATHOLOGY, CONVERTED Steven prietoo Start: 06-15-2008 SURGICAL PATHOLOGY, CONVERTED Steven isaac Plan of Treatment Date Care Activity Detail Author Start: 12-18-2024 Procedure [facility] Start: 02-26-2023 Influenza vaccination Influenza Vacc ine (#1) [facility] Start: 11-02-2022 Procedure [facility] Start: 06-28-2022 Advance Directive Discussion Advance Directive Discussion [facility] Start: 06-28-2022 Depression Assessment Depression Ass essment [facility] Start: 04-06-2022 End: 06-06-2022 Prostate specific Ag [Mass/volume] in Serum or Plasma PSA/PROSTSPECAG DIAG Lab Routine Prostate cancer (HCC) Expected: 04/06/2022, Expires: 06/06/2022 [facility] Work Phone: Comment on above: Expected: 04/06/2022 , Expires: 06/06/2022 Start: 02-26-2022 Influenza vaccination [facility] Start: 02-18-2022 Procedure [facility] Work Phone: Start: 06-28-2021 ADVANCE DIRECTIVE DISCUSSION ADVANCE DIRECTIVE DISCUSSION [facility] Start: 06-28-2021 DEPRESSION ASSESSMENT DEPRESSION ASS ESSMENT [facility] Start: 04-30-2021 Covid-19 Vaccine (2 - Pfizer series) Covid-19 Vaccine (2 - Pfizer series) [facility] Start: 03-26-2021 COVID-19 VACCINE (2 - Pfizer series) COVID-19 VACCINE (2 - Pfizer series) [facility] Start: 2009 PNEUMOVAX AGE 65 AND OVER WITH 5YR LOOKBACK (#1) PNEUMOVAX AGE 65 AND OVER WITH 5YR LOOKBACK (#1) [facility] Start: 1994 SHINGRIX VACCINE (1 of 2) SHINGRIX VACCINE (1 of 2) [facility] Start: 1989 DIABETES SCREEN DIABETES SCREEN [facility] Start: 1989 Diabetes Screening Diabetes Screenin g [facility] Start: 12-26-1963 Urine microalbumin profile [facility] Start: 1962 HEPATITIS C SCREENING HEPATITIS C SC REENING [facility] Start: 1956 Adult depression screening assessment DEPRESSION SCREENING [facility] Start: 1950 Pneumococcal Vaccine : 65+ (1 - PCV) Pneumococcal Vaccine: 65+ (1 - PCV) [facility] Start: 1950 PNEUMOCOCCAL: 65+ (1 - PCV) PNEUMOCOCCAL: 65+ (1 - PCV) [facility] Start: 1949 COVID-19 VACCINE (1) COVID-19 VACCIN E (1) [facility] Start: 06-26-1945 COVID-19 VACCINE (#1) COVID-19 VACCI NE (#1) [facility] Procedure [facility] Work Phone: [facility] Immunizations Immunization Date Immunization Notes Care Provider Fa cility 03-26-2018 influenza virus vacc ine, unspecified formulation Steven Agrawal [facility] Payers Date Payer Category Payer Self-pay [id number] 2017 Private Health Insurance [facility] AARP SUPPLEMENT [id number] 2017-Present [phone] [address] [place] [address] Indemnity [id number] 2017 Private Health Insurance [id number] 2016 Medicare [id number] 2011 Medicare [id number] 2011 Medicare MEDICARE PART A B [id number] 2009 Medicare MEDICARE MEDICAR E A AND B [id number] 2009-[facility] [phone] [address] [address] [place] [address] Medicare [id number] 2009 Medicare [id number] 2009 Medicare [id number] Medicare [id number] Unknown [id number] Unknown [id number] Unknown [id number] Unknown [id number] Unknown [id number] Unknown [id number] Unknown [id number] Unknown [id number] Unknown [id number] Social History Date Type Detail Facility Start: 03-28-2021 Tobacco smoking stat us TNIS Tobacco smoking consumption unknown [facility] Start: 1945 Sex Assigned At Not on file [facility] Start: 01-14-2018 Cigarettes [place] [facility] Start: 1945 Sex Assigned At Male [facility] Start: 03-28-2021 End: 04-03-2022 Tobacco smoking status NHIS Smokes tobacco daily [facility] Start: 06-28-1966 History of tobacco use Cigarette Smo ker [facility] Start: 04-06-2022 Cigarettes smoked current (pack per day) - Reported 0.3 [facility] Start: 04-06-2022 Tobacco use and exposure Smokeless tobacco non-user [facility] Start: 04-06-2022 Alcohol intake Lifetime non-d neeta (finding) [facility] Start: 03-27-2022 End: 04-06-2022 Exposure to SARS-CoV-2 (event) Not sure [facility] Start: 04-06-2022 Tobacco use panel [facility] Medical Equipment Procedure Code Equipment Code Equipment Origin al Text Equipment Identifier Dates BLUE PERC LEAD KIT FDA Start: 01-21-2018 BLUE PERC LEAD KIT FDA Start: 01-21-2018 IPG SPINAL CORD STIMULATOR FDA Start: 01-21-2018 [id number] LEAD ANCHOR KIT FDA Star t: 01-21-2018 BLUE PERC LEAD KIT FDA Start: 01-21-2018 BLUE PERC LEAD KIT FDA Start: 01-21-2018 IPG SPINAL CORD STIMULATOR FDA Start: 01-21-2018 N300 LEAD ANCHOR KIT FDA Star t: 01-21-2018 BLUE PERC LEAD KIT FDA Start: 01-21-2018 BLUE PERC LEAD KIT FDA Start: 01-21-2018 IPG SPINAL CORD STIMULATOR FDA Start: 01-21-2018 N300 LEAD ANCHOR KIT FDA Star t: 01-21-2018 BLUE PERC LEAD KIT FDA Start: 01-21-2018 BLUE PERC LEAD KIT FDA Start: 01-21-2018 IPG SPINAL CORD STIMULATOR FDA Start: 01-21-2018 N300 LEAD ANCHOR KIT FDA Star t: 01-21-2018 BLUE PERC LEAD KIT FDA Start: 01-21-2018 BLUE PERC LEAD KIT FDA Start: 01-21-2018 IPG SPINAL CORD STIMULATOR FDA Start: 01-21-2018 N300 LEAD ANCHOR KIT FDA Star t: 01-21-2018 BLUE PERC LEAD KIT FDA Start: 01-21-2018 BLUE PERC LEAD KIT FDA Start: 01-21-2018 IPG SPINAL CORD STIMULATOR FDA Start: 01-21-2018 N300 LEAD ANCHOR KIT FDA Star t: 01-21-2018 BLUE PERC LEAD KIT FDA Start: 01-21-2018 BLUE PERC LEAD KIT FDA Start: 01-21-2018 IPG SPINAL CORD STIMULATOR FDA Start: 01-21-2018 N300 LEAD ANCHOR KIT FDA Star t: 01-21-2018 History of Present illness Narrative 04-06-2022 May Mcnair MD - 04/06/2022 9:36 AM EDT Note Date & Type Note Facility 04-06-2022 History of Presen t illness Narrative CHIEF COMPLAINT : Prostate cancer Subjective HISTORY OF PRESENT ILLNESS: Patient had a history of adenocarcinoma of the prostate which was treated with external beam radiation therapy. His PSA had been stable. Last PSA was 0.02 which was done on 10/01/2021. He still complaining of obstructive voiding symptoms and he is currently on Flomax. Bladder scan showed no significant postvoid residual urine. His urinalysis was normal and digital rectal exam revealed slightly indurated prostatic gland consistent with a status postradiation therapy. SOCIAL HISTORY: Social History Tobacco Use Smoking status: Every Day Packs/day: 0.25 Types: Cigarettes Start date: 1967 Smokeless tobacco: Never Substance Use Topics Alcohol use: Never Drug use: Never PAST MEDICAL HISTORY Diagnosis Date Back pain CA of prostate (HCC) FAMILY HISTORY Problem Relation Age of Onset Cancer Father Cancer Brother Current Outpatient Medications Medication Sig HYDROcodone-acetaminophen (NORCO) 5-325 mg per tablet Take 1 tablet by mouth once daily. tamsulosin (FLOMAX) 0.4 mg No current facility-administered medications for this visit. REVIEW OF SYSTEMS: Review of Systems Genitourinary: Positive for frequency. Negative for difficulty urinating, dysuria, hematuria and scrotal swelling. Objective PHYSICAL EXAMINATION: BP 150/82 (BP Site: Left Arm, BP Position: Sitting, BP Cuff Size: Regular Adult) Pulse 67 Resp 16 Ht 180.3 cm (5' 11) Wt 89.4 kg (197 lb) SpO2 95% BMI 27.48 kg/m Physical Exam Abdominal: Palpations: Abdomen is soft. Tenderness: There is no right CVA tenderness or left CVA tenderness. Comments: Digital rectal exam revealed slightly indurated prostatic bed consistent with status postradiation therapy. Seminal vesicles were normal and sphincter tone was normal Genitourinary: Penis: Normal. Testes: Normal. IMAGING STUDIES: No images are attached to the encounter. MEDICAL DECISION MAKING Assessment & Plan Donald was seen today for follow up. Of prostate cancer. He continues to complain of obstructive voiding symptoms but the bladder scan showed no significant postvoid residual urine. His urinalysis was normal. We will continue observation. 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 and other lower urinary tract symptoms (LUTS) documented in this encounter [facility] Reason for referral (narrative) Note Date & Type Note Facility Reason for referral (narrative) No reason for referral information available [facility] Work Phone: Summary Purpose Family History No Family History Records Found Relationship Condition Age at Onset Recorded Date/T durga father Malignant neoplasm Unknown brother Malignant neoplasm Unknown sister Malignant neoplasm Unknown Advance Directives No Advanced Directives Records Found Advance Directive Response Recorded Date/ Time Living Will Yes March 28 6:48am Power of Wooden Tank 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 Yes March 28 021 6:48am Chief Complaint and Reason for Visit Chief Complaint Admit Date KIDNEY CYST October 23, 2024 9:2 3am Additional Source Comments (unrecognized sect ion and content) No Status Records FoundNo Status Records FoundNo Status Records FoundNo Status Records FoundNo Status Records Found INFORMATION SOURCE (unrecogn ized section and content) DATE CREATED AUTHOR 12/16/2017 [facility] DATE CREATED AUTHOR AUTHOR'S ORGANIZ ATION 08/02/2018 [facility] eliseo Daley DATE CREATED AUTHOR AUTHOR'S ORGANIZ ATION 08/07/2018 [facility] DATE CREATED AUTHOR AUTHOR'S ORGANIZ ATION 02/15/2020 [facility] DATE CREATED AUTHOR AUTHOR'S ORGANIZ ATION 12/22/2024 [facility] Source Comments (unrecognize d section and content) In the event this informatio n is protected by the Federal Confidentiality of Alcohol and Drug Abuse Patient Records regulations: The Federal rules restrict any use of the information to criminally investigate or prosecute any alcohol or drug abuse patient.[facility] the event this information is protected by the Federal Confidentiality of Alcohol and Drug Abuse Patient Records regulations: The Federal rules restrict any use of the information to criminally investigate or prosecute any alcohol or drug abuse patient.[facility] HospitalIn the event this information is protected by the Federal Confidentiality of Alcohol and Drug Abuse Patient Records regulations: The Federal rules restrict any use of the information to criminally investigate or prosecute any alcohol or drug abuse patient.[facility] Hospital[facility] the event this information is protected by the Federal Confidentiality of Alcohol and Drug Abuse Patient Records regulations: The Federal rules restrict any use of the information to criminally investigate or prosecute any alcohol or drug abuse patient.[facility] Hospital[facility] the event this information is protected by the Federal Confidentiality of Alcohol and Drug Abuse Patient Records regulations: The Federal rules restrict any use of the information to criminally investigate or prosecute any alcohol or drug abuse patient.[facility] Goals (unrecognized section and content) Goals may be documented in a n alternate sectionGoals may be documented in an alternate sectionGoals may be documented in an alternate sectionGoals may be documented in an alternate sectionGoals may be documented in an alternate sectionGoals may be documented in an alternate sectionGoals may be documented in an alternate section Reason for Visit (unrecogniz ed section and content) Reason Comments Follow Up 6 month recheck PSA Care Teams (unrecognized sec tion and content) [employer] Setter Operator Relationship Specialty Start Date End Date Christopher Eng DO [address] [facility] [place] [address] PCP - General Family Medicine 04/06/22 Team Status: Active Member Role Status Dates Dr. Christopher Eng DO Family Provider Active Dr. Christopher Eng DO Primary Care Provider Active Team Status: Inactive Member Role Status Dates Dr. Christopher Eng DO Primary Care Provider Active Dr. Sebas Sandoval MD Attending Provider, Referr ing Provider Active Team Status: Inactive Member Role Status Dates Dr. Christopher Eng DO Primary Care Provider Active Dr. Fariha Wu MD Attending Provider, Referring Pr ovider Active [employer] Setter Operator Relationship Specialty Start Date End Date Christopher Eng DO [address] [place] [address] PCP - General Family Medicine 04/06/22 [employer] Press Setter Operator Relationship Specialty Start Date End Date Christopher Eng DO [address] [place] [address] PCP - [facility] Family Medicine 04/06/22 Team Status: Inactive Member Role Status Dates Dr. Christopher Eng DO Primary Care Provider Active Stephanie Serna Attending Provider, Referring Provide r Active Team Status: Active Member Role Status Dates Dr. Christopher Eng DO Primary Care Provider Active Team Status: Inactive Member Role Status Dates Dr. Christopher Eng DO Primary Care Provider Active Start: October 16, 2024 End: October 16, 2024 Dr. Sebas Sandoval MD Attending Provider Active Start: October 16, 2024 End: October 16, 2024 Dr. Sebas Sandoval MD Referring Provider Active Start: October 16, 2024 End: October 16, 2024 Team Status: Inactive Member Role Status Dates Dr. Christopher Eng DO Primary Care Provider Active Start: October 23, 2024 End: October 23, 2024 Dr. Christopher Eng DO Attending Provider Active Start: October 23, 2024 End: October 23, 2024 Dr. Christopher Eng DO Referring Provider Active Start: October 23, 2024 End: October 23, 2024 Team Status: Inactive Member Role Status Dates Dr. Christopher Eng DO Primary Care Provider Active Start: December 18, 2024 End: December 18, 2024 Dr. Fariha Wu MD Attending Provider Active Start: December 18, 2024 End: December 18, 2024 Dr. Fariha Wu MD Referring Provider Active Start: December 18, 2024 End: December 18, 2024 FOR RECORDS PERTAINING TO PATIENTS WHO ARE OR HAVE BEEN ENROLLED IN A CHEMICAL DEPENDENCY/SUBSTANCEABUSE PROGRAM, SOME INFORMATION MAY BE OMITTED. This clinical summary was aggregated from multiple sources. Caution should be exercised in using it in the provision of clinical care. This summary normalizes information from multiple sources, and as a consequence, information in this document may materially change the coding, format and clinical context of patient data. In addition, data may be omitted in some cases. CLINICAL DECISIONS SHOULD BE BASED ON THE PRIMARY CLINICAL RECORDS. [email or web address], [facility]. provides no warranty or guarantee of the accuracy or completeness of information in this document.
--- NOTE | 2025-01-06 14:40 | RAD_ITS ---
PROCEDURE: PELVIS 1 OR 2 VIEWS 01/06/2025 REASON FOR EXAM: PAIN TECHNIQUE: PELVIS 1 OR 2 VIEWS COMPARISON: Lumbar spine radiographs on 02/29/2024 FINDINGS: Spinal stimulator generator pack projects over the right hip and pelvis which slightly limits this evaluation. No displaced fracture is identified. Postoperative changes of the lumbar spine. Nonobstructive appearance of the visualized bowel gas. RAD/Pelvis 1 or 2 Views IMPRESSION: Slightly limited exam, without evidence of a displaced pelvic fracture. Consid er CT if heightened clinical concern persists. Reading Location: [id number]
--- NOTE | 2025-01-06 14:40 | RAD_ITS ---
PROCEDURE: FEMUR MIN 2 VIEWS 01/06/2025 REASON FOR EXAM: PAIN TECHNIQUE: FEMUR MIN 2 VIEWS COMPARISON: None RAD/Femur Min 2 Views IMPRESSION: Total left knee arthroplasty without hardware complications. No acute fracture or dislocations. Mild degenerative changes of the left hip. No large joint effusion. Mild diffuse soft tissue edema. No radiographic foreign body. Reading Location: [id number]
[2025-01-06 15:11] VITALS: BMI 28.4
== END 2025-01-06 16:36 | disposition home or self-care (01) ==
PROVIDERS: Emergency Provider Emergency Medicine; PCP Family Medicine; Visit Provider Emergency Medicine
DX: S76.312A Strain of muscle, fascia and tendon of the posterior muscle group at thigh level, left thigh, initial encounter (principal); W18.49XA Other slipping, tripping and stumbling without falling, initial encounter; M54.50 Low back pain, unspecified; G89.29 Other chronic pain; Z96.652 Presence of left artificial knee joint; F17.210 Nicotine dependence, cigarettes, uncomplicated
CPT/HCPCS: 72170; 73552; 99282